=== PATIENT | male | born 1960 | race Two or more races ===

== ENCOUNTER 2017-01-09 11:25 | Inpatient (IN) | payer BC ==
[2017-01-09 11:35] VITALS: BMI 37.6
[2017-01-09] MEDS ORDERED: SODIUM CHLORIDE 500 ML IV STA (11:55)
--- NOTE | 2017-01-09 11:55 | PDOC ---
History of Present Illness <Michael Pineda - Last Filed: 01/09/17 14:26> - General History Source: Patient Exam Limitations: No Limitations - History of Present Illness Initial Comments: 01/09/17 11:55 The patient is a 56-year-old man with a significant past medical history of hypertension, hypercholesterolemia, non-insulin dependent diabetes mellitus, coronary artery disease s/p stent placement and ulcers who was recently admitted in this hospital on September of 2016 for pneumonia, who presents to the emergency department today, for further evaluation of shortness of breath. He states that his symptoms started over the weekend, when he started to experience nasal congestion, a mild intermittent non-productive cough and increasing shortness of breath. He states that prior to his symptoms, he was able to walk a few blocks, however, he is now only able to walk a shorter distance, as he gets short of breath. He denies using extra pillows in order to sleep at night. He denies any changes in his chronic lower extremity swelling. He did not receive the influenza vaccine this season. Patient went to his PMD, this morning, when a flu swab was performed and was positive for the flu. He attributes his symptoms to his sick contact exposure to his , who developed symptoms before him. Upon Er arrival, patient was noted to be 89% on room air and was immediately placed on a non-rebreather. He denies chest pain, headache,dizziness, lightheadedness, fever, chills, back pain. He denies abdominal pain,nausea, vomiting, diarrhea, hematochezia, melena He denies lower extremity pain/swelling and/or recent prolonged immobilization. Allergies: No Known Drug Allergies Past Surgical History: Stent Placement. Lumbar-Sacral Surgery. Right Wrist Arthroscopy. Right Knee Arthroscopy. Left Second toe revision Social History: No tobacco, ETOH and recreational drug use. Primary Care Physician: [facility]. <Sandra Lawson - Last Filed: 01/09/17 14:43> - General Chief Complaint: Shortness of Breath Stated Complaint: SOB Time Seen by Provider: 01/09/17 11:40 Past History - Past Medical History Anemia: No Asthma: No Cancer: No Cardiac Disorders: Yes (stent placement) CVA: No COPD: No CHF: No Dementia: No Diabetes: Yes GI Disorders: Yes (ULCERS) Disorders: No HTN: Yes Hypercholesterolemia: Yes Liver Disease: No Seizures: No Thyroid Disease: No - Surgical History Abdominal Surgery: No Appendectomy: No Cardiac Surgery: Yes (stents) Cholecystectomy: No Lung Surgery: No Neurologic Surgery: Yes (lumbar sacral surgery) Orthopedic Surgery: Yes (r wrist arthroscopy, r knee arthroscopy, L 2nd toe revision) - Psycho/Social/Smoking Cessation Hx Anxiety: No Suicidal Ideation: No Smoking Status: No Smoking History: Former smoker Have you smoked in the past 12 months: No Number of Cigarettes Smoked Daily: 0 If you are a former smoker, when did you quit?: "on and off" for many years Information on smoking cessation initiated: No Hx Alcohol Use: No Drug/Substance Use Hx: No Substance Use Type: None Hx Substance Use Treatment: No <Michael Pineda - Last Filed: 01/09/17 14:26> <Sandra Lawson - Last Filed: 01/09/17 14:43> - Past Medical History Allergies/Adverse Reactions: Allergies Allergy/AdvReac Type Severity Reaction Status Date / Time No Known Allergies Allergy Verified 01/09/17 11:31 Home Medications: Ambulatory Orders Albuterol Sulfate [Proair Respiclick] 90 mcg IH Q4H 01/09/17 Amlodipine Besylate [Norvasc -] 10 mg PO DAILY 01/09/17 Aspirin Coated [Ecotrin -] 81 mg PO DAILY 01/09/17 Atorvastatin Ca [Lipitor] 80 mg PO HS 01/09/17 Azelastine HCl 0 mcg NS BID 01/09/17 Carvedilol [Coreg] 25 mg PO BID 01/09/17 Diclofenac Sodium [Voltaren] 100 gm TP DAILY 01/09/17 Glimepiride [Amaryl] 2 mg PO DAILY 01/09/17 Ketoconazole 2% Cream [Nizoral 2% Cream -] 1 applic TP BID 01/09/17 Linagliptin [Tradjenta] 5 mg PO DAILY 01/09/17 Mupirocin Ointment [Bactroban] 1 applic TP BID 01/09/17 [place]-3S/Dha/Epa/Fish Oil [Fish Oil 1,200 mg Softgel] 1 each PO BID 01/09/17 Oxycodone HCl/Acetaminophen [Percocet 5-325 mg Tablet] 1 tab PO Q6H 01/09/17 Terbinafine HCl [Lamisil] 250 mg PO DAILY 01/09/17 Tramadol HCl [Ultram] 50 mg PO Q6H 01/09/17 Valsartan [Diovan] 320 mg PO DAILY 01/09/17 Review of Systems - Review of Systems Constitutional: Yes: Chills. No: Fever HEENTM: Yes: Nose Congestion Respiratory: Yes: Cough, Shortness of Breath ABD/GI: No: Diarrhea, Vomiting Musculoskeletal: Yes: Muscle Pain Neurological: No: Headache All Other Systems: Reviewed and Negative <Michael Pineda - Last Filed: 01/09/17 14:26> *Physical Exam - Vital Signs Last Vital Signs Temp Pulse Resp BP Pulse Ox 98.1 F 70 18 109/65 98 01/09/17 11:32 01/09/17 11:32 01/09/17 11:32 01/09/17 11:32 01/09/17 11:52 <Michael Pineda - Last Filed: 01/09/17 14:26> - Vital Signs Last Vital Signs Temp Pulse Resp BP Pulse Ox 98.1 F 70 18 109/65 98 01/09/17 11:32 01/09/17 11:32 01/09/17 11:32 01/09/17 11:32 01/09/17 11:52 - Physical Exam Comments: 01/09/17 11:55 GENERAL: The patient is awake, alert, and fully oriented, in no acute distress. HEAD: Normal with no signs of trauma. EYES: Pupils equal, round and reactive to light, extraocular movements intact, sclera anicteric, conjunctiva clear with no pallor. ENT: Ears normal, nasal congestion, oropharynx clear without exudates. Moist mucous membranes. NECK: Normal range of motion, supple without lymphadenopathy, JVD, or masses. LUNGS: Slightly coarse breath sounds at the bases, left worse than right, but overall clear with no wheezes. HEART: Regular rate and rhythm, normal S1 and S2 without murmur or rub. ABDOMEN: Soft/nontender/nondistended. BS wnl. No guarding or rebound. No palpable masses. No hepatosplenomegaly. EXTREMITIES: Normal range of motion. 2+ pitting edema, bilaterally without unilateral calf tenderness. No clubbing or cyanosis. No cords, erythema, or tenderness. NEUROLOGICAL: Cranial nerves II through XII grossly intact. Normal speech, normal gait. PSYCH: Normal mood, normal affect. SKIN: Warm, Dry, normal turgor, no rashes or lesions noted. <Sandra Lawson - Last Filed: 01/09/17 14:43> Heart Score/ECG Review #1 ECG reviewed & interpreted by me at: 12:00 General ECG Interpretation: Sinus Rhythm, Normal Rate (65), Normal Intervals ( qtc 434), No acute ischemic changes (poor baseline V1V2, inf Q waves, TWI I/AVL , V4-V6) Compared to previous ECG there are: No significant change (c/w 09/28/16) <Michael Pineda - Last Filed: 01/09/17 14:26> ED Treatment Course - LABORATORY CBC & Chemistry Diagram: 01/09/17 12:02 01/09/17 12:02 <Michael Pineda - Last Filed: 01/09/17 14:26> - LABORATORY CBC & Chemistry Diagram: 01/09/17 12:02 01/09/17 12:02 - RADIOLOGY Radiograph Interpretation: 01/09/17 13:19 EXAM: RAD/CHEST X-RAY PORTABLE IMPRESSION: A single view reveals a weak inspiration with resultant congestive changes and prominent mediastinum. The atelectasis in the left midlung field has resolved since 09/28/2016. The congestive changes have developed. EXAM: CT/CHEST CT WITHOUT CONTRAST IMPRESSION: Sequential axial images were obtained from the thoracic inlet through the domes of the diaphragm. Evaluation of the lung pino demonstrates no evidence of pulmonary masses, areas of acute consolidation or pleural effusions. Examination of the mediastinum demonstrates small lymph nodes scattered throughout the mediastinal chains. The etiology and significance of this mild adenopathy is uncertain. There is no evidence of evidence of mediastinal masses or fluid collections. The heart is not enlarged. Coronary artery calcification is present. Evaluation of the upper abdomen demonstrates diffuse fatty infiltration of the liver. There is no evidence of acute pathology. There is no evidence of acute bony abnormalities. <Sandra Lawson - Last Filed: 01/09/17 14:43> Medical Decision Making - Medical Decision Making 01/09/17 12:31 A portion of this note was documented by scribe services under my direction. I have reviewed the details of the note, within reason, and agree with the documentation with the following case summary and management plan written by me. 56-year-old male with multiple medical problems and history of pneumonia in September now sent from [facility] after he was found to be influenza positive and hypoxic in the setting of 3 days of URI symptoms and acute on chronic shortness of breath. Afebrile here, O2 sat 88% on room air, improves to 94% on supplemental oxygen. Bibasilar coarse breath sounds, left worse than right 56-year-old male with positive influenza and relative hypoxia on exam, rule out superimposed pneumonia, ? CHF. Labs, EKG, chest x-ray Tamiflu Supplemental oxygen, nebulizers Admission 01/09/17 14:09 No leukocytosis, positive acute renal insufficiency with creatinine 1.9, baseline 1.3. Troponin negative, BNP 470, chest x-ray with poor inspiration and possible atelectasis, will proceed with CT chest without contrast. Will proceed with admission given the hypoxia in the setting of influenza. Dr. Garnett, wagon drill operator for service, called. 01/09/17 14:27 Accepted for inpatient med/surg by Dr. Garnett. CT chest pending. <Michael Pineda - Last Filed: 01/09/17 14:26> - Medical Decision Making 01/09/17 14:[address] Екатерина Garnett. Accepts Case. <Sandra Lawson - Last Filed: 01/09/17 14:43> *DC/Admit/Observation/Transfer - Discharge Dispostion Admit: Yes <Michael Pineda - Last Filed: 01/09/17 14:26> - Attestations Scribe Attestion: 01/09/17 11:56 Documentation prepared by Sandra Lawson, acting as medical review coordinator for Michael Pineda MD. <Sandra Lawson - Last Filed: 01/09/17 14:43> Diagnosis at time of Disposition: Influenza, Hypoxia - Discharge Dispostion Condition at time of disposition: Fair - Referrals Referrals: Geoff Whipple [Primary Care Provider] -
[2017-01-09] MEDS ORDERED: OSELTAMIVIR PHOSPHATE 75 MG CAPSULE PO ONE (12:05)
[2017-01-09] MEDS ORDERED: OSELTAMIVIR PHOSPHATE 75 MG CAPSULE ONE (12:15)
[2017-01-09 12:22] LABS: BASOPHIL 0.3 % (0-2.0); EOSINOPHIL 4.7 % (0-4.5); MCH 27.2 pg (25.7-33.7); MCHC 32.1 g/dl (32.0-35.9); MEAN CELL VOLUME 84.9 fl (80-96); MEAN PLT VOLUME 8.6 fl (7.5-11.1); NEUTROPHILS 70.4 % (42.8-82.8); PLATELET COUNT 121 K/MM3 (134-434); RDW 15.3 % (11.9-15.9); WHITE BLOOD COUNT 9.6 K/mm3 (4.0-10.0)
[2017-01-09] MEDS ORDERED: ALBUTEROL SO4 2.5/IPRATROPIUM 0.5 INH SOL 3 ML VIAL.NEB. NEB ONE ×2 (12:33→12:49)
[2017-01-09 12:35] LABS: INR 1.08 (0.82-1.09); PROTHROMBIN TIME (PATIENT) 11.9 SEC (9.98-11.88)
[2017-01-09 12:38] LABS: ALBUMIN 3.4 g/dl (3.4-5.0); ANION GAP 8 (8-16); BILIRUBIN,TOTAL 0.4 mg/dL (0.2-1.0); CALCIUM 8.8 mg/dL (8.5-10.1); CO2 32 mmol/L (21-32); CREATININE 1.9 mg/dL (0.7-1.3); GLUCOSE,RANDOM 160 mg/dL (74-106); MAGNESIUM 2.1 mg/dL (1.8-2.4); SGOT/AST 21 U/L (15-37); SGPT/ALT 41 U/L (12-78); TOT PROT 7.7 g/dl (6.4-8.2)
[2017-01-09 12:42] LABS: ALK PHOS 117 U/L (45-117); TROPONIN I < 0.02 ng/ml (0.00-0.05)
[2017-01-09] MEDS ORDERED: SODIUM CHLORIDE 1,000 ML IV ONE (14:05)
[2017-01-09] MEDS ORDERED: OXYCODONE/APAP 5/325MG COMBO TABLET PO PRN (20:20)
[2017-01-09] MEDS ORDERED: oxyCODONE HCL 5 MG TABLET PO PRN (20:36)
[2017-01-09] MEDS ORDERED: ACETAMINOPHEN 325 MG TABLET (FP) PO PRN (20:37)
[2017-01-09] MEDS: CARVEDILOL 25 MG TABLET (FP) PO SCH (21:34)
[2017-01-09] MEDS: ATORVASTATIN CA 80 MG TABLET (FP) PO SCH (21:34)
[2017-01-09] MEDS: OSELTAMIVIR PHOSPHATE 75 MG CAPSULE PO SCH (21:35)
[2017-01-09] MEDS: INSULIN SLIDING SCALE (NOVOLOG) 1 VIAL SQ SCH (21:44)
--- NOTE | 2017-01-09 22:58 | EKG ---
Test Reason : Blood Pressure : / mmHG Vent. Rate : 065 BPM Atrial Rate : 065 BPM P-R Int : 148 ms QRS Dur : 102 ms QT Int : 418 ms P-R-T Axes : -20 -63 127 degrees QTc Int : 434 ms POOR DATA QUALITY, INTERPRETATION MAY BE ADVERSELY AFFECTED SINUS RHYTHM LEFT ANTERIOR FASCICULAR BLOCK ABNORMAL ECG Confirmed by ANDREAS MONTALVO MD ([id number]) on 01/09/2017 10:58:01 PM Referred By: Confirmed By:ANDREAS MONTALVO MD
[2017-01-10] MEDS: ALBUTEROL SO4 2.5/IPRATROPIUM 0.5 INH SOL 3 ML VIAL.NEB. NEB SCH ×5 (00:09→23:07)
[2017-01-10] MEDS ORDERED: PT OWN MED DRAWER 7, Y5N ONE (05:48)
[2017-01-10] MEDS: INSULIN SLIDING SCALE (NOVOLOG) 1 VIAL SQ SCH ×4 (06:44→22:10)
[2017-01-10] MEDS: sitaGLIPtin PHOSPHATE 100 MG TABLET (FP) PO SCH (06:45)
[2017-01-10] MEDS: GLIMEPIRIDE 2 MG TABLET (FP) PO SCH (06:45)
[2017-01-10] MEDS ORDERED: PATIENT'S OWN MEDICATION (NON-FORMULARY) (Linagliptin [Tradjenta] 5 MG) PO SCH (10:00)
[2017-01-10] MEDS ORDERED: PATIENT'S OWN MEDICATION (NON-FORMULARY) (Terbinafine Hcl [Lamisil] 250 MG) PO SCH (10:00)
[2017-01-10] MEDS: VALSARTAN 160 MG TABLET (UD) PO SCH (10:44)
[2017-01-10] MEDS: amLODIPine BESYLATE 10 MG TABLET (FP) PO SCH (10:45)
[2017-01-10] MEDS: CARVEDILOL 25 MG TABLET (FP) PO SCH ×2 (10:45→22:09)
[2017-01-10] MEDS: ENOXAPARIN NA (PORCINE) 40 MG/0.4 ML DISP.SYRIN SQ SCH (10:45)
[2017-01-10] MEDS: ASPIRIN COATED 81 MG TABLET.EC PO SCH (10:45)
[2017-01-10] MEDS: OSELTAMIVIR PHOSPHATE 75 MG CAPSULE PO SCH ×2 (10:45→22:09)
--- NOTE | 2017-01-10 11:31 | CON.PULM ---
Consult Consult Specialty:: PULMONARY Referred by:: PMD Reason for Consultation:: INFLU/SOB - History of Present Illness History of Present Illness: The patient is a 56-year-old man with a significant past medical history of hypertension, hypercholesterolemia, non-insulin dependent diabetes mellitus, coronary artery disease s/p stent placement and ulcers who was recently admitted in this hospital on September of 2016 for pneumonia ( official reading of cxr was linear atelectasis), who presents to the emergency department for further evaluation of shortness of breath. He states that his symptoms started over the weekend, when he started to experience nasal congestion, a mild intermittent non-productive cough and increasing shortness of breath. He states that prior to his symptoms, he was able to walk a few blocks, however, he is now only able to walk a shorter distance, as he gets short of breath. He denies using extra pillows in order to sleep at night. He denies any changes in his chronic lower extremity swelling. He did not receive the influenza vaccine this season. Patient went to his PMD, this morning, when a flu swab was performed and was positive for the flu. He attributes his symptoms to his sick contact exposure to his , who developed symptoms before him. Upon Er arrival, patient was noted to be 89% on room air and was immediately placed on a non- rebreather. He denies chest pain, headache,dizziness, lightheadedness, fever, chills, back pain. He denies abdominal pain,nausea, vomiting, diarrhea, hematochezia, melena He denies lower extremity pain/swelling and/or recent prolonged immobilization. He has had a recent (3 weeks ago ) arthroscopic surg of shoulder at [facility]. 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 Cardio/Vascular: Yes: CAD (s/p PCI of proximal RCA in 09/2005 with Palmaz TONYA stent at [facility]), Deep Vein Thrombosis (left leg), HTN, Hyperlipdemia Pulmonary: Yes: Sleep Apnea Gastrointestinal: Yes: GI Bleed (due to esophageal ulcers per 12/02/15 EGD) Renal/: Yes: Renal Inusuff, Hematuria Infectious Disease: Yes: Tuberculosis Psych: Yes: Addictions Musculoskeletal: Yes: Chronic low back pain Rheumatology: Yes: Other (arthritis right shoulder) Endocrine: Yes: Diabetes Mellitus Additional Medical History: Vertebral osteomyelitis treated with IV antibiotics - Past Surgical History Past Surgical History: Yes: None, Arthrosocopy (SHOULDER), Colonoscopy, Laminectomy (partial laminectomey right L3-4, left 4-5 on 12/08/15), Upper Endoscopy - Alcohol/Substance Use Hx Alcohol Use: No History of Substance Use: reports: Cocaine, Marijuana Date of Last Use: 11/14/15 (uses "occasionally") - Smoking History Smoking history: Former smoker Have you smoked in the past 12 months: No Aproximately how many cigarettes per day: 0 If you are a former smoker, when did you quit?: "on and off" for many years - Social History Usual Living Arrangement: [facility] ADL: Support Services Occupation: [employer] History of Recent Travel: No Home Medications - Allergies Allergies/Adverse Reactions: Allergies Allergy/AdvReac Type Severity Reaction Status Date / Time No Known Allergies Allergy Verified 01/09/17 11:31 - Home Medications Home Medications: Ambulatory Orders Albuterol Sulfate [Proair Respiclick] 90 mcg IH Q4H 01/09/17 Amlodipine Besylate [Norvasc -] 10 mg PO DAILY 01/09/17 Aspirin Coated [Ecotrin -] 81 mg PO DAILY 01/09/17 Atorvastatin Ca [Lipitor] 80 mg PO HS 01/09/17 Azelastine HCl 0 mcg NS BID 01/09/17 Carvedilol [Coreg] 25 mg PO BID 01/09/17 Diclofenac Sodium [Voltaren] 100 gm TP DAILY 01/09/17 Glimepiride [Amaryl] 2 mg PO DAILY 01/09/17 Ketoconazole 2% Cream [Nizoral 2% Cream -] 1 applic TP BID 01/09/17 Linagliptin [Tradjenta] 5 mg PO DAILY 01/09/17 Mupirocin Ointment [Bactroban] 1 applic TP BID 01/09/17 [place]-3S/Dha/Epa/Fish Oil [Fish Oil 1,200 mg Softgel] 1 each PO BID 01/09/17 Oxycodone HCl/Acetaminophen [Percocet 5-325 mg Tablet] 1 tab PO Q6H 01/09/17 Terbinafine HCl [Lamisil] 250 mg PO DAILY 01/09/17 Tramadol HCl [Ultram] 50 mg PO Q6H 01/09/17 Valsartan [Diovan] 320 mg PO DAILY 01/09/17 Family Disease History - Family Disease History Family Disease History: Diabetes: Father (asthma), Mother Review of Systems - Review of Systems Constitutional: denies: Fever Eyes: denies: Blind Spots HENT: denies: Difficult Swallowing Neck: denies: Decreased ROM Cardiovascular: denies: Chest Pain Respiratory: reports: Cough, Snoring, SOB on Exertion, Wheezing. denies: Hemoptysis Gastrointestinal: denies: Abdominal Pain Genitourinary: denies: Burning Breasts: reports: No Symptoms Reported Musculoskeletal: reports: No Symptoms Integumentary: reports: No Symptoms Neurological: reports: No Symptoms Endocrine: reports: No Symptoms Hematology/Lymphatic: reports: No Symptoms Physical Exam Vital Sings: Vital Signs Temperature 97.9 F 01/10/17 10:00 Pulse Rate 60 01/10/17 10:00 Respiratory Rate 18 01/10/17 10:00 Blood Pressure 127/67 01/10/17 10:00 O2 Sat by Pulse Oximetry (%) 97 01/09/17 15:14 Constitutional: Yes: Calm Eyes: Yes: EOM Intact HENT: Yes: Normocephalic Neck: Yes: Trachea Midline Cardiovascular: Yes: Regular Rate and Rhythm Respiratory: Yes: Diminished Gastrointestinal: Yes: Soft, Abdomen, Obese Edema: LLE: 1+, RLE: 1+ Integumentary: Yes: WNL Neurological: Yes: WNL Psychiatric: Yes: WNL Labs: ALL REVIEWED Imaging - Results Chest X-ray: Image Reviewed Cat Scan: Image Reviewed Problem List - Problems (1) Hypoxia Code(s): R09.02 - HYPOXEMIA (2) Influenza Code(s): J11.1 - FLU DUE TO UNIDENTIFIED INFLUENZA VIRUS W OTH RESP MANIFEST (3) CAD S/P percutaneous coronary angioplasty Code(s): I25.10 - ATHSCL HEART DISEASE OF [place] CORONARY ARTERY W/O ANG PCTRS Z98.61 - CORONARY ANGIOPLASTY STATUS (4) CAP (community acquired pneumonia) Code(s): J18.9 - PNEUMONIA, UNSPECIFIED ORGANISM Assessment/Plan ISOLATION TAMIFLU SINUS FILMS MAY NEED CONCOMITANT ANTIBIOTIC TREATMENT FOR SINUSITIS IF XRAYS CONFIRM WILL FOLLOW Loretta CARDONA MD
--- NOTE | 2017-01-10 12:11 | PN ---
Progress Note, Physician History of Present Illness: This was entered in error - Current Medication List Current Medications: Active Medications Acetaminophen (Tylenol -) 325 mg PO Q6H PRN PRN Reason: FEVER OR PAIN Last Admin: 01/09/17 21:35 Dose: 325 mg Albuterol/Ipratropium (Duoneb -) 1 amp NEB Q6HPO [facility] Last Admin: 01/10/17 11:49 Dose: 1 amp Amlodipine Besylate (Norvasc -) 10 mg PO DAILY [facility] Last Admin: 01/10/17 10:45 Dose: 10 mg Aspirin (Ecotrin -) 81 mg PO DAILY [facility] Last Admin: 01/10/17 10:45 Dose: 81 mg Atorvastatin Calcium (Lipitor -) 80 mg PO HS [facility] Last Admin: 01/09/17 21:34 Dose: 80 mg Carvedilol (Coreg -) 25 mg PO BID [facility] Last Admin: 01/10/17 10:45 Dose: 25 mg Enoxaparin Sodium (Lovenox -) 40 mg SQ DAILY [facility] Last Admin: 01/10/17 10:45 Dose: 40 mg Glimepiride (Amaryl -) 2 mg PO ACBK [facility] Last Admin: 01/10/17 06:45 Dose: 2 mg Insulin Aspart (Novolog Vial Sliding Scale -) 1 vial SQ ACHS [facility] PRN Reason: Protocol Last Admin: 01/10/17 12:01 Dose: Not Given Non-Formulary Medication (Terbinafine Hcl [Lamisil]) 250 mg PO DAILY [facility] Oseltamivir Phosphate (Tamiflu -) 75 mg PO BID [facility] Stop: 01/14/17 21:59 Last Admin: 01/10/17 10:45 Dose: 75 mg Oxycodone HCl (Roxicodone -) 5 mg PO Q6H PRN Last Admin: 01/10/17 00:05 Dose: 5 mg Sitagliptin Phosphate (Januvia -) 100 mg PO DAILY@0700 [facility] Last Admin: 01/10/17 06:45 Dose: 100 mg Valsartan (Diovan -) 320 mg PO DAILY [facility] Last Admin: 01/10/17 10:44 Dose: 320 mg - Objective Vital Signs: Vital Signs Temperature 97.9 F 01/10/17 10:00 Pulse Rate 60 01/10/17 10:00 Respiratory Rate 18 01/10/17 10:00 Blood Pressure 127/67 01/10/17 10:00 O2 Sat by Pulse Oximetry (%) 97 01/09/17 15:14 Labs: INR, PTT INR 1.08 (0.82-1.09) 01/09/17 12:02
--- NOTE | 2017-01-10 13:59 | HP ---
Admitting History and Physical - Admission Chief Complaint: Hypoxia History of Present Illness: Pt is a 56 y/o male w/ multiple medical problems including HTN, HLD, CAD(stent placement), diabetes and pneumonia in 09/16. For the past 3-4 days he had been having dry nonproductive cough w/ nasal/sinusis congestion and generalized arthralgias. Pt went to see his PMD at [facility] and was dx'ed w/ influenza. He was found to be hypoxic and sent to the ER where upon arrival his O2 sat was 89% . Pt denies any fever/chills. Although he did state that his has been having intermittent dyspneas for awhile now but denies any chest pain or palpitations. Pt quit smoking few yrs ago. In the Er pt had ct scan chest wc did not show any acute pathology. 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 Cardiovascular: Yes: CAD (s/p PCI of proximal RCA in 09/2005 with Palmaz TONYA stent at [facility]), Deep Vein Thrombosis (left leg), HTN, Hyperlipdemia Pulmonary: Yes: Sleep Apnea Gastrointestinal: Yes: GI Bleed (due to esophageal ulcers per 12/02/15 EGD) Renal/: Yes: Renal Inusuff, Hematuria Heme/Onc: Yes: Bleeding Disorder (hematuria) Infectious Disease: Yes: Tuberculosis Psych: Yes: Addictions Musculoskeletal: Yes: Chronic low back pain Rheumatology: Yes: Other (arthritis right shoulder) Endocrine: Yes: Diabetes Mellitus - Past Surgical History Past Surgical History: Yes: None, Arthrosocopy (SHOULDER), Colonoscopy, Laminectomy (partial laminectomey right L3-4, left 4-5 on 12/08/15), Upper Endoscopy - Smoking History Smoking history: Former smoker Have you smoked in the past 12 months: No Aproximately how many cigarettes per day: 0 If you are a former smoker, when did you quit?: "on and off" for many years - Alcohol/Substance Use Hx Alcohol Use: No History of Substance Use: reports: Cocaine, Marijuana Date of Last Use: 11/14/15 (uses "occasionally") - Social History ADL: Support Services Occupation: [employer] History of Recent Travel: No Home Medications - Allergies Allergies/Adverse Reactions: Allergies Allergy/AdvReac Type Severity Reaction Status Date / Time No Known Allergies Allergy Verified 01/09/17 11:31 - Home Medications Home Medications: Ambulatory Orders Albuterol Sulfate [Proair Respiclick] 90 mcg IH Q4H 01/09/17 Amlodipine Besylate [Norvasc -] 10 mg PO DAILY 01/09/17 Aspirin Coated [Ecotrin -] 81 mg PO DAILY 01/09/17 Atorvastatin Ca [Lipitor] 80 mg PO HS 01/09/17 Azelastine HCl 0 mcg NS BID 01/09/17 Carvedilol [Coreg] 25 mg PO BID 01/09/17 Diclofenac Sodium [Voltaren] 100 gm TP DAILY 01/09/17 Glimepiride [Amaryl] 2 mg PO DAILY 01/09/17 Ketoconazole 2% Cream [Nizoral 2% Cream -] 1 applic TP BID 01/09/17 Linagliptin [Tradjenta] 5 mg PO DAILY 01/09/17 Mupirocin Ointment [Bactroban] 1 applic TP BID 01/09/17 [place]-3S/Dha/Epa/Fish Oil [Fish Oil 1,200 mg Softgel] 1 each PO BID 01/09/17 Oxycodone HCl/Acetaminophen [Percocet 5-325 mg Tablet] 1 tab PO Q6H 01/09/17 Terbinafine HCl [Lamisil] 250 mg PO DAILY 01/09/17 Tramadol HCl [Ultram] 50 mg PO Q6H 01/09/17 Valsartan [Diovan] 320 mg PO DAILY 01/09/17 Family Disease History - Family Disease History Family Disease History: Diabetes: Father (asthma), Mother Physical Examination Vital Signs: Vital Signs Temperature 97.9 F 01/10/17 10:00 Pulse Rate 60 01/10/17 10:00 Respiratory Rate 18 01/10/17 10:00 Blood Pressure 127/67 01/10/17 10:00 O2 Sat by Pulse Oximetry (%) 93 L 01/10/17 09:00
[2017-01-10] MEDS ORDERED: ZOLPIDEM TARTRATE 5 MG TABLET PO ONE (22:00)
[2017-01-10] MEDS: ATORVASTATIN CA 80 MG TABLET (FP) PO SCH (22:09)
--- NOTE | 2017-01-11 00:05 | HOSP ---
Physical Examination Vital Signs: Vital Signs Temperature 97.9 F 01/10/17 16:30 Pulse Rate 63 01/10/17 16:30 Respiratory Rate 20 01/10/17 16:30 Blood Pressure 145/84 01/10/17 16:30 O2 Sat by Pulse Oximetry (%) 93 L 01/10/17 09:00 Hospitalist Encounter Assessment: Was paged by the nurse to inform me that patient had mental status change after he took 10mg of Zolpidem. Nurse reported that this is Dr. Abbott private patient , they tried calling Dr. Garnett to get medication for insomnia for the patient, she was unable to be reached. Dr. Nicolas George ordered Zolpidem 10mg stat. As per the nurse, after an hour and half, patient started becoming confused, was disoriented, told the nurse he saw broken pipes on the floor but there were no pipes on the floors, patient was restless and had tremors in the extremities. Patient seen and examined at bed side. On further questioning, patient mentioned he came to the hospital because of stuffy nose, was flu positive and is being treated for flu. Patient said he takes codeine for sleep, without codeine he gets very restless. Patient admits using illicit drugs like marijuana, cocaine, last took 3months ago. Now, seems to be anxious, wants to sleep but is not able to sleep. Denies chest pain, cough, sob, palpitation, abdominal pain, nausea or vomiting. Bowel/Bladder habit normal. Patient now is hallucinating, taking off his clothes, talking to himself. Patient took shower this evening, now is insisting to take a shower @ 12:30am BP- 138/86; P-74bpm, RR-24, Spo2-93% at RA General: Obese patient, lying in bed, anxious, oriented x 3. HEENT: Conjunctiva red, watery eyes, EOM intact, no pallor or icterus. Chest: B/L lungs clear, no added sounds CVS: regular rate, rhythm, S1, S2, no murmur. Abd: Soft, non tender, no organomegaly. Neuro: CN 2-12 grossly intact, restless, tremors, anxious, no tremors in extremities. A/P R/o drug induced confusion Nasal oxygen at 2L. Ordered Urine toxicology stat- Ordered CBC, CMP Please call once report gets back. SECOND ENCOUNTER CBC-normal, CMP-mild hypokalemia with acute renal failure. AMS/Confusion less likely due to electrolyte imbalance AMS/Confusion not due to illicit drug use-Urine toxicology negative Repeat vitals: BP- 150/77mmHg, P-98bpm, RR-22, Spo2-89% at Room air (since patient keeps on taking off the nasal canula) Ordered stat ABG to rule out hypoxia causing confusion. Spoke with the patient. He said he spoke with Dr. Garnett 3times asking for sleeping pills but never got it. Checked patients medication list. He mentioned that oxycodone helps him to remain calm. Will hold narcotics for now as he could have had confusion due to Zolpidem. Visit type - Emergency Visit Emergency Visit: Yes ED Registration Date: 01/09/17 Care time: The patient presented to the Emergency Department on the above date and was hospitalized for further evaluation of their emergent condition. - New Patient This patient is new to me today: Yes Date on this admission: 01/11/17 - Critical Care Critical Care patient: No
[2017-01-11 00:56] LABS: BASOPHIL 0.9 % (0-2.0); EOSINOPHIL 7.7 % (0-4.5); MCH 27.5 pg (25.7-33.7); MCHC 32.7 g/dl (32.0-35.9); MEAN CELL VOLUME 83.9 fl (80-96); MEAN PLT VOLUME 8.7 fl (7.5-11.1); NEUTROPHILS 52.4 % (42.8-82.8); PLATELET COUNT 128 K/MM3 (134-434); RDW 14.9 % (11.9-15.9); WHITE BLOOD COUNT 9.5 K/mm3 (4.0-10.0)
[2017-01-11 01:21] LABS: ALBUMIN 3.2 g/dl (3.4-5.0); CALCIUM 8.5 mg/dL (8.5-10.1); CREATININE 1.4 mg/dL (0.7-1.3)
[2017-01-11 01:23] LABS: URINE MARIJUANA THC NEGATIVE ng/ml (CUTOFF=50)
[2017-01-11 01:27] LABS: BILIRUBIN,TOTAL 0.3 mg/dL (0.2-1.0)
[2017-01-11 02:29] LABS: ARTERIAL BLD GAS O2 SATURATION 90.3 % (90-98.9); ARTERIAL BLOOD GAS BASE EXCESS 3.1 meq/l (-2-2); ARTERIAL BLOOD GAS HCO3 28.9 meq/L (22-26); ARTERIAL BLOOD GAS PO2 61.7 mmHg (80-100); ARTERIAL BLOOD GAS pH 7.37 (7.35-7.45)
[2017-01-11 02:30] LABS: ALLENS TEST POSITIVE; ART PUNCT SITE RIGHT RADIAL; LPM/O2% 4L; PT. ON O2? YES; TYPE OF O2 NASAL
[2017-01-11] MEDS: ALBUTEROL SO4 2.5/IPRATROPIUM 0.5 INH SOL 3 ML VIAL.NEB. NEB SCH ×2 (06:06→11:10)
[2017-01-11] MEDS: sitaGLIPtin PHOSPHATE 100 MG TABLET (FP) PO SCH (06:25)
[2017-01-11] MEDS: GLIMEPIRIDE 2 MG TABLET (FP) PO SCH (06:25)
[2017-01-11] MEDS: INSULIN SLIDING SCALE (NOVOLOG) 1 VIAL SQ SCH ×3 (06:29→16:43)
[2017-01-11 06:51] VITALS: TEMP 97.5
[2017-01-11 08:46] LABS: BASOPHIL 0.6 % (0-2.0); EOSINOPHIL 5.6 % (0-4.5); MCHC 32.4 g/dl (32.0-35.9); MEAN CELL VOLUME 83.4 fl (80-96); MEAN PLT VOLUME 8.8 fl (7.5-11.1); NEUTROPHILS 62.2 % (42.8-82.8); PLATELET COUNT 117 K/MM3 (134-434); RDW 14.8 % (11.9-15.9); WHITE BLOOD COUNT 9.1 K/mm3 (4.0-10.0)
[2017-01-11 09:01] VITALS: BP 141/94
[2017-01-11] MEDS: AMOX TR/POT CLAV 875MG/125MG TABLETS (FP) PO SCH ×2 (09:05→17:02)
[2017-01-11] MEDS: ENOXAPARIN NA (PORCINE) 40 MG/0.4 ML DISP.SYRIN SQ SCH (09:05)
[2017-01-11] MEDS: ASPIRIN COATED 81 MG TABLET.EC PO SCH (09:06)
[2017-01-11] MEDS: CARVEDILOL 25 MG TABLET (FP) PO SCH (09:06)
[2017-01-11] MEDS: VALSARTAN 160 MG TABLET (UD) PO SCH (09:06)
[2017-01-11] MEDS: OSELTAMIVIR PHOSPHATE 75 MG CAPSULE PO SCH (09:06)
[2017-01-11] MEDS: amLODIPine BESYLATE 10 MG TABLET (FP) PO SCH (09:06)
[2017-01-11 09:23] LABS: ALBUMIN 3.4 g/dl (3.4-5.0); CALCIUM 8.8 mg/dL (8.5-10.1)
[2017-01-11 09:28] LABS: BILIRUBIN,TOTAL 0.4 mg/dL (0.2-1.0); CREATININE 1.3 mg/dL (0.7-1.3); TOT PROT 7.2 g/dl (6.4-8.2)
[2017-01-11 11:57] VITALS: PULSE 60
--- NOTE | 2017-01-11 16:14 | PN ---
Progress Note, Physician History of Present Illness: PULMONARY ALERT,NAD,-SOB,-CP. O2 SAT 95% AT REST ON RA, 90% POST EXERCISE ON RA - Current Medication List Current Medications: Active Medications Acetaminophen (Tylenol -) 325 mg PO Q6H PRN PRN Reason: FEVER OR PAIN Last Admin: 01/09/17 21:35 Dose: 325 mg Albuterol/Ipratropium (Duoneb -) 1 amp NEB Q6HPO [facility] Last Admin: 01/11/17 11:10 Dose: 1 amp Amlodipine Besylate (Norvasc -) 10 mg PO DAILY [facility] Last Admin: 01/11/17 09:06 Dose: 10 mg Amoxicillin/Clavulanate Potassium (Augmentin - 875mg Tablet) 1 tab PO BID@0800, 1730 [facility] Last Admin: 01/11/17 09:05 Dose: 1 tab Aspirin (Ecotrin -) 81 mg PO DAILY [facility] Last Admin: 01/11/17 09:06 Dose: 81 mg Atorvastatin Calcium (Lipitor -) 80 mg PO HS [facility] Last Admin: 01/10/17 22:09 Dose: 80 mg Carvedilol (Coreg -) 25 mg PO BID [facility] Last Admin: 01/11/17 09:06 Dose: 25 mg Enoxaparin Sodium (Lovenox -) 40 mg SQ DAILY [facility] Last Admin: 01/11/17 09:05 Dose: 40 mg Glimepiride (Amaryl -) 2 mg PO ACBK [facility] Last Admin: 01/11/17 06:25 Dose: 2 mg Insulin Aspart (Novolog Vial Sliding Scale -) 1 vial SQ ACHS [facility] PRN Reason: Protocol Last Admin: 01/11/17 12:04 Dose: Not Given Non-Formulary Medication (Terbinafine Hcl [Lamisil]) 250 mg PO DAILY [facility] Oseltamivir Phosphate (Tamiflu -) 75 mg PO BID [facility] Stop: 01/14/17 21:59 Last Admin: 01/11/17 09:06 Dose: 75 mg Oxycodone HCl (Roxicodone -) 5 mg PO Q6H PRN Last Admin: 01/10/17 00:05 Dose: 5 mg Sitagliptin Phosphate (Januvia -) 100 mg PO DAILY@0700 [facility] Last Admin: 01/11/17 06:25 Dose: 100 mg Valsartan (Diovan -) 320 mg PO DAILY [facility] Last Admin: 01/11/17 09:06 Dose: 320 mg - Objective Vital Signs: Vital Signs Temperature 97.5 F L 01/11/17 09:00 Pulse Rate 60 01/11/17 11:10 Respiratory Rate 22 01/11/17 09:00 Blood Pressure 141/94 01/11/17 09:00 O2 Sat by Pulse Oximetry (%) 97 01/11/17 11:10 Constitutional: Yes: Well Nourished, Calm Eyes: Yes: WNL HENT: Yes: WNL Neck: Yes: WNL Cardiovascular: Yes: Regular Rate and Rhythm, S1, S2 Respiratory: Yes: CTA Bilaterally Gastrointestinal: Yes: WNL Extremities: Yes: WNL Edema: Yes Labs: CBC, BMP 01/11/17 07:00 01/11/17 07:00 INR, PTT INR 1.08 (0.82-1.09) 01/09/17 12:02 - ....Imaging Cat Scan: Report Reviewed, Image Reviewed (MILD MEDIASTINAL ADENOPATHY) Assessment/Plan Problem List - Problems (1) Hypoxia IMPROVED Code(s): R09.02 - HYPOXEMIA (2) Influenza Code(s): J11.1 - FLU DUE TO UNIDENTIFIED INFLUENZA VIRUS W OTH RESP MANIFEST (3) CAD S/P percutaneous coronary angioplasty Code(s): I25.10 - ATHSCL HEART DISEASE OF [place] CORONARY ARTERY W/O ANG PCTRS Z98.61 - CORONARY ANGIOPLASTY STATUS (4) CAP (community acquired pneumonia) Code(s): J18.9 - PNEUMONIA, UNSPECIFIED ORGANISM Assessment/Plan [facility]AM[facility]LU O2 SLEEP STUDIES OUTPATIENT DR MALONE
== END 2017-01-11 17:12 | disposition home or self-care (01) | DRG 153 ==
LOC: JER 11:25 → JERBED 14:27 → J8W 16:15
PROVIDERS: ADMIT Internal Medicine; ATTEND Internal Medicine
DX: J11.1 Influenza due to unidentified influenza virus with other respiratory manifestations (principal); N17.9 Acute kidney failure, unspecified; F14.20 Cocaine dependence, uncomplicated; I25.10 Atherosclerotic heart disease of native coronary artery without angina pectoris; E11.9 Type 2 diabetes mellitus without complications; E78.00 Pure hypercholesterolemia, unspecified; I10 Essential (primary) hypertension; G47.30 Sleep apnea, unspecified; M54.5 Low back pain; R09.02 Hypoxemia; E66.8 Other obesity; Z68.37 Body mass index [BMI] 37.0-37.9, adult; Z71.3 Dietary counseling and surveillance; E87.8 Other disorders of electrolyte and fluid balance, not elsewhere classified; J18.9 Pneumonia, unspecified organism; Z95.5 Presence of coronary angioplasty implant and graft; Z87.891 Personal history of nicotine dependence
CPT/HCPCS: 36415; 36600; 70220-TC; 71010-TC; 71250-TC; 80053; 80307; 82550; 82803; 83735; 83880; 84484; 85025; 85610; 86710; 87254; 87804; 93005; 93010; 93306-TC; 94640; 99285-25

== ENCOUNTER 2019-08-03 20:29 | Emergency (ER) | payer BC ==
--- NOTE | 2019-08-03 20:38 | PDOC ---
History of Present Illness - General Stated Complaint: WOUND INFECTION Time Seen by Provider: 08/03/19 20:38 Past History - Past Medical History Allergies/Adverse Reactions: Allergies Allergy/AdvReac Type Severity Reaction Status Date / Time No Known Allergies Allergy Verified 08/03/19 21:36 Home Medications: Ambulatory Orders Aspirin [Aspirin EC] 81 mg PO DAILY 06/08/18 Atorvastatin Ca [Lipitor] 80 mg PO HS 06/08/18 Carvedilol [Coreg -] 25 mg PO BID 06/08/18 Glimepiride 2 mg PO DAILY 06/08/18 Liraglutide [Victoza 3-Ivan] 1.2 mg SQ DAILY 06/08/18 [place]-3 Fatty Acids [[place]-3] 350 mg PO DAILY 06/08/18 Oxycodone HCl 5 mg PO Q6H PRN 06/08/18 Bacitracin - [Bacitracin Topical Ointment -] 1 applic TP DAILY #1 tube 06/11/18 Clindamycin HCl 300 mg PO TID #15 capsule 06/11/18 Lactobacillus Acidophilus [Bacid -] 1 tab PO DAILY #30 tab 06/11/18 Anemia: No Asthma: No Cancer: No Cardiac Disorders: Yes (stent placement) CVA: No COPD: No CHF: No Dementia: No Diabetes: Yes GI Disorders: Yes (ULCERS) Disorders: No HTN: Yes Hypercholesterolemia: Yes Liver Disease: No Seizures: No Thyroid Disease: No - Surgical History Abdominal Surgery: No Appendectomy: No Cardiac Surgery: Yes (stents) Cholecystectomy: No Lung Surgery: No Neurologic Surgery: Yes (lumbar sacral surgery) Orthopedic Surgery: Yes (r wrist arthroscopy, r knee arthroscopy, L 2nd toe revision) - Suicide/Smoking/Psychosocial Hx Smoking Status: No Smoking History: Never smoked Have you smoked in the past 12 months: No Number of Cigarettes Smoked Daily: 0 If you are a former smoker, when did you quit?: "on and off" for many years Hx Alcohol Use: No Drug/Substance Use Hx: No Substance Use Type: None Hx Substance Use Treatment: No ED Treatment Course - LABORATORY CBC & Chemistry Diagram: 08/03/19 21:29 Medical Decision Making - Medical Decision Making 58 with PMH of DM, HTN, TN, ?psoriasis presenting with bleeding wound. Starting around 8pm, his left leg was itchy. He excoriated the area which bled immediately and spurted blood. His applied pressure to the area. Patient is on 81mg aspirin but no other anticoagulation. Has been taking a ten-day regimen of antibiotics (unknown what kind or what dose) given by his PCP for suspicion of cellulitis; finished the course yesterday. Redness in his right leg has not expanded in size. Denies other bleeding or discharge from his legs. Also reporting dyspnea on exertion for which he has an appointment to see a steam box operator. Chronic leg swelling and erythema is at its baseline. Last tetanus shot was in 2013. Reports dyspnea on exertion for which he has been evaluated by a steam box operator and given an inhaler; has an appointment to see cardiology tomorrow. No fevers, chills, chest pain, or abdominal pain. PCP: Dr. Teran ROS: Constitutional: no fever, no chills HEENT: no throat pain, no dysphagia Cardiovascular: no chest pain, no palpitations Respiratory: no cough, +dyspnea on exertion Gastrointestinal: no abdominal pain, no nausea Genitourinary: no dysuria, no hematuria Musculoskeletal: no myalgia, no arthralgia Skin: +wound, +erythema Neurologic: no headache, no weakness PE: General: Awake, alert, and fully oriented, in no acute distress Head: No signs of trauma Eyes: EOMI, sclera anicteric ENT: Moist mucus membranes Neck: Normal ROM, supple Lungs: Lungs clear, Normal breath sounds Cardio: Regular rhythm, S1 and S2 present Abdomen: Soft, nontender Extremities: Normal range of motion, Distal pulses present SKIN: Otherwise warm, Dry, normal turgor Extensive area of erythema and dermatitis in BLE from ankles to inferior knee, slightly warm. Skin opening on left medial alvarez that is hemostatic. No open wounds on RLE, 2+ dorsalis pedis pulses BLE Neurologic: Cranial nerves II through XII grossly intact. Normal speech ED Course/MDM: DDX including but not limited to trauma, venous stasis ulcer, CHF, lymphedema, osteomyelitis CBC Bacitracin 08/03/19 20:38 CBC WBC 9.3 K/mm3 (4.0-10.0) 08/03/19 21:29 RBC 4.87 M/mm3 (4.00-5.60) 08/03/19 21:29 Hgb 13.4 GM/dL (11.7-16.9) 08/03/19 21:29 Hct 40.6 % (35.4-49) 08/03/19 21:29 MCV 83.3 fl (80-96) 08/03/19 21:29 MCH 27.5 pg (25.7-33.7) 08/03/19 21: MCHC 33.0 g/dl (32.0-35.9) 08/03/19 21:29 RDW 14.9 % (11.9-15.9) 08/03/19 21:29 Plt Count 165 K/MM3 (134-434) 08/03/19 21:29 MPV 8.9 fl (7.5-11.1) 08/03/19 21:29 Absolute Neuts (auto) 6.7 K/mm3 (1.5-8.0) 08/03/19 21: Neutrophils % 71.5 % (42.8-82.8) 08/03/19 21: Lymphocytes % 13.9 % (8-40) D 08/03/19 21: Monocytes % 8.2 % (3.8-10.2) 08/03/19 21:29 Eosinophils % 5.1 % (0-4.5) H 08/03/19 21: Basophils % 1.3 % (0-2.0) 08/03/19 21: Nucleated RBC % 0 % (0-0) 08/03/19 21:29 No leukocytosis Wound is still hemostatic 08/03/19 21:59 Wound covered with sterile dressing Patient discharged with return precautions *DC/Admit/Observation/Transfer Diagnosis at time of Disposition: Laceration - Discharge Dispostion Disposition: HOME Condition at time of disposition: Improved - Referrals Referrals: Matthew Teran [Primary Care Provider] - - Patient Instructions Printed Discharge Instructions: DI for Minor Laceration Additional Instructions: You came to the emergency department for a bleeding wound on your left leg. The wound was dressed and you did not need to get stitches. Follow-up with your primary care provider within 72 hours to discuss this ED visit and to further evaluate your wound. Call tomorrow morning and make an appointment. Your workup is not complete until you do so. Keep the area clean. Avoid scratching the area. RETURN to the emergency department if you experience: redness or hardness around the wound, pain or tenderness, a red streak, yellow or green discharge oozing from the wound, fever or chills. - Post Discharge Activity
--- NOTE | 2019-08-03 21:08 | PDOC ---
Documentation entered by Loren Zheng SCRIBE, acting as scribe for Margaret Lorenzana MD. Margaret Lorenzana MD: This documentation has been prepared by the Norm cabrera Brenda, SCRIBE, under my direction and personally reviewed by me in its entirety. I confirm that the documentation accurately reflects all work, treatment, procedures, and medical decision making performed by me. Attending Attestation - Resident Resident Name: Bhargavi BarcenasЕкатерина - ED Attending Attestation I have performed the following: I have examined & evaluated the patient, The case was reviewed & discussed with the resident, I agree w/resident's findings & plan, Exceptions are as noted - HPI HPI: 08/03/19 20:57 he patient is a 58 year old male with a significant past medical history of HTN , HLD, CAD (s/p stent placement), and DM who presents to the ED with mild venous bleeding from his left lower leg after he scratched it Allergies: JAVED PCP: Dr. Teran - Physicial Exam PE: 08/03/19 21:03 58-year-old male presents with left leg bleeding from site he scratched himself 08/03/19 21:04 58-year-old male presents in no acute distress. Head normocephalic/atraumatic. Neck supple Lungs are clear to auscultation bilaterally CVS regular rate and rhythm S1, S2 Abdomen protuberant, nontender. Extremities chronic venous stasis with some scattered psoriatic plaques,no active bleeding currently, erythematous LE b/l, good ,dp pulses neuro axox3 - Medical Decision Making 08/03/19 21:17 pt w chronic venous stasis,edema,erythema,psoriasis who scratched his leg,now bleeding is controlled w bandage and pt discharged home 08/09/19 23:03 08/09/19 23:04
[2019-08-03] MEDS ORDERED: BACITRACIN 15 GM TUBE TOPICAL OINTMENT TP ONE (21:15)
[2019-08-03 21:36] VITALS: BP 159/88; PULSE 55; TEMP 98.2; BMI 40.6
[2019-08-03] MEDS ORDERED: BACITRACIN 0.9 GM PACKET ONE (21:38)
[2019-08-03 21:47] LABS: BASO % 1.3 % (0-2.0); EOS % 5.1 % (0-4.5); HEMATOCRIT 40.6 % (35.4-49); HEMOGLOBIN 13.4 GM/dL (11.7-16.9); LYMPH % 13.9 % (8-40); MCH 27.5 pg (25.7-33.7); MEAN CELL VOLUME 83.3 fl (80-96); MEAN PLT VOLUME 8.9 fl (7.5-11.1); MONO % 8.2 % (3.8-10.2); NEUT % 71.5 % (42.8-82.8); PLATELET COUNT 165 K/MM3 (134-434); RBC 4.87 M/mm3 (4.00-5.60); RDW 14.9 % (11.9-15.9); WHITE BLOOD COUNT 9.3 K/mm3 (4.0-10.0)
== END 2019-08-03 22:29 | disposition home or self-care (01) ==
LOC: JER 20:29
DX: S81.802A Unspecified open wound, left lower leg, initial encounter (principal); I83.12 Varicose veins of left lower extremity with inflammation; I83.11 Varicose veins of right lower extremity with inflammation; Y33.XXXA Other specified events, undetermined intent, initial encounter; Y93.89 Activity, other specified; Y92.038 Other place in apartment as the place of occurrence of the external cause; Y99.8 Other external cause status; I25.10 Atherosclerotic heart disease of native coronary artery without angina pectoris; I10 Essential (primary) hypertension; Z95.5 Presence of coronary angioplasty implant and graft; E11.9 Type 2 diabetes mellitus without complications; Z79.84 Long term (current) use of oral hypoglycemic drugs; E78.5 Hyperlipidemia, unspecified
CPT/HCPCS: 36415; 85025; 99282-25

== ENCOUNTER 2019-08-14 22:57 | Emergency (ER) | payer BC ==
[2019-08-14 23:05] VITALS: BP 164/67; PULSE 65; TEMP 97.5; BMI 39.4
[2019-08-14] MEDS ORDERED: LIDOCAINE 1%/EPI 1:100000 (20 ML MULTI DOSE VIAL) ONE (23:33)
--- NOTE | 2019-08-15 00:36 | PDOC ---
History of Present Illness - General Chief Complaint: Laceration Stated Complaint: L/FOOT/BLEEDING Time Seen by Provider: 08/14/19 23:06 History Source: Patient Exam Limitations: No Limitations Past History - Past Medical History Allergies/Adverse Reactions: Allergies Allergy/AdvReac Type Severity Reaction Status Date / Time No Known Allergies Allergy Verified 08/14/19 23:06 Home Medications: Ambulatory Orders Aspirin [Aspirin EC] 81 mg PO DAILY 06/08/18 Atorvastatin Ca [Lipitor] 80 mg PO HS 06/08/18 Carvedilol [Coreg -] 25 mg PO BID 06/08/18 Glimepiride 4 mg PO DAILY 06/08/18 Oxycodone HCl 5 mg PO Q6H PRN 06/08/18 Cephalexin [Keflex] 500 mg PO DAILY 08/14/19 Furosemide [Lasix] 40 mg PO BID 08/14/19 Liraglutide [Victoza -] 1.8 mg SQ DAILY@0700 08/14/19 Valsartan [Diovan] 320 mg PO DAILY 08/14/19 Anemia: No Asthma: No Cancer: No Cardiac Disorders: Yes (stent placement) CVA: No COPD: No CHF: No Dementia: No Diabetes: Yes GI Disorders: Yes (ULCERS) Disorders: No HTN: Yes Hypercholesterolemia: Yes Liver Disease: No Seizures: No Thyroid Disease: No - Surgical History Abdominal Surgery: No Appendectomy: No Cardiac Surgery: Yes (stents) Cholecystectomy: No Lung Surgery: No Neurologic Surgery: Yes (lumbar sacral surgery) Orthopedic Surgery: Yes (r wrist arthroscopy, r knee arthroscopy, L 2nd toe revision) - Suicide/Smoking/Psychosocial Hx Smoking Status: No Smoking History: Never smoked Have you smoked in the past 12 months: No Number of Cigarettes Smoked Daily: 0 If you are a former smoker, when did you quit?: "on and off" for many years Hx Alcohol Use: No Drug/Substance Use Hx: No Substance Use Type: None Hx Substance Use Treatment: No *Physical Exam - Vital Signs Last Vital Signs Temp Pulse Resp BP Pulse Ox 97.5 F L 65 20 164/67 94 L 08/14/19 23:03 08/14/19 23:03 08/14/19 23:03 08/14/19 23:03 08/14/19 23:03 - Physical Exam General Appearance: No: Apparent Distress Respiratory/Chest: positive: Lungs Clear, Normal Breath Sounds. negative: Respiratory Distress Cardiovascular: positive: Regular Rhythm, Regular Rate, S1, S2. negative: Murmur Extremity: positive: Other (Point area along medial aspect of LLE with blood oozing out; +venous stasis changes to BLE, no varicose veins noted, no open wound or laceration or pustular drainage) Neurologic: positive: Alert Medical Decision Making - Medical Decision Making 58 y/o M hx of HTN, HLD, DM, CAD s/p PCI 2005, PRITI, renal insuffiency, PUD presents with sudden onset of bleeding along LLE while taking a shower. Patient is on baby ASA. This has occurred in the past and patient was seen last week for similar complaint, though at that time, the bleeding stopped with pressure dressing. Patient is currently taking Keflex; was started on it last week (has been off and on abx). Patient has multiple doctors he follows with, including vascular doctor. Denies fever, sob, cp, abd pain, vomiting. Initially surgicel was placed but noted to be bleeding through surgicel Pressure dressing applied Plan was to inject lido/epi and possibly do figure 8 stitch if needed to control bleeding However, on reassessment, bleeding had stopped with surgicel Patient monitored for some time and no rebleeding occurred Patient has f/u with his PCP next week 08/15/19 00:32 *DC/Admit/Observation/Transfer Diagnosis at time of Disposition: Bleeding - Discharge Dispostion Disposition: HOME Condition at time of disposition: Stable Decision to Admit order: No - Referrals Referrals: Matthew Teran [Primary Care Provider] - - Patient Instructions Additional Instructions: Thank you for choosing [facility]. It was a pleasure taking care of you. Your bleeding was controlled here for now Please continue follow-up with your vascular doctor and primary care doctor Return to the Emergency Department if your symptoms worsen or persist, you have fever, shortness of breath, chest pain, heavy bleeding, pustular drainage or other concerning symptoms. - Post Discharge Activity
== END 2019-08-15 00:42 | disposition home or self-care (01) ==
LOC: JER 22:57
DX: R58 Hemorrhage, not elsewhere classified (principal); I87.8 Other specified disorders of veins; I25.10 Atherosclerotic heart disease of native coronary artery without angina pectoris; I13.10 Hypertensive heart and chronic kidney disease without heart failure, with stage 1 through stage 4 chronic kidney disease, or unspecified chronic kidney disease; N18.9 Chronic kidney disease, unspecified; Z95.5 Presence of coronary angioplasty implant and graft; E11.9 Type 2 diabetes mellitus without complications; Z79.84 Long term (current) use of oral hypoglycemic drugs; E78.00 Pure hypercholesterolemia, unspecified; G47.33 Obstructive sleep apnea (adult) (pediatric); Z87.11 Personal history of peptic ulcer disease
CPT/HCPCS: 99281-25

== ENCOUNTER 2019-09-01 15:43 | Inpatient (IN) | payer BC ==
--- NOTE | 2019-09-01 16:44 | PDOC ---
History of Present Illness - General History Source: Patient - History of Present Illness Occurred: reports: other Lower Extremity Pain Location: bilateral: other (b/l LE) <Analia Fraser - Last Filed: 09/04/19 21:15> <Aguila Lockwood - Last Filed: 09/06/19 15:28> - General Chief Complaint: Wound Stated Complaint: WOUND Time Seen by Provider: 09/01/19 16:41 Past History - Past Medical History Anemia: No Asthma: No Cancer: No Cardiac Disorders: Yes (stent placement) CVA: No COPD: No CHF: No Dementia: No Diabetes: Yes GI Disorders: Yes (ULCERS) Disorders: No HTN: Yes Hypercholesterolemia: Yes Liver Disease: No Seizures: No Thyroid Disease: No - Surgical History Abdominal Surgery: No Appendectomy: No Cardiac Surgery: Yes (stents) Cholecystectomy: No Lung Surgery: No Neurologic Surgery: Yes (lumbar sacral surgery) Orthopedic Surgery: Yes (r wrist arthroscopy, r knee arthroscopy, L 2nd toe revision) - Immunization History Immunization Up to Date: Yes - Psycho Social/Smoking Cessation Hx Smoking Status: No Smoking History: Never smoked Have you smoked in the past 12 months: No Number of Cigarettes Smoked Daily: 0 If you are a former smoker, when did you quit?: "on and off" for many years Information on smoking cessation initiated: No Hx Alcohol Use: No Drug/Substance Use Hx: No Substance Use Type: None Hx Substance Use Treatment: No <Shante FraserPacoSuri - Last Filed: 09/04/19 21:15> <Aguila Lockwood - Last Filed: 09/06/19 15:28> - Past Medical History Allergies/Adverse Reactions: Allergies Allergy/AdvReac Type Severity Reaction Status Date / Time No Known Allergies Allergy Verified 09/01/19 15:51 Home Medications: Ambulatory Orders Atorvastatin Ca [Lipitor] 80 mg PO HS 06/08/18 Carvedilol [Coreg -] 25 mg PO BID 06/08/18 Glimepiride 4 mg PO DAILY 06/08/18 Oxycodone HCl 5 mg PO Q8H PRN 06/08/18 Hydralazine HCl 50 mg PO BID 09/01/19 Umeclidinium [place] [Incruse Ellipta] 62.5 mcg IH DAILY 09/01/19 Amlodipine Besylate [Norvasc -] 10 mg PO DAILY #30 tablet 09/02/19 Apremilast [Otezla] See Taper PO DAILY 09/02/19 Gabapentin [Neurontin -] 100 mg PO TID #90 capsule 09/02/19 Clindamycin [Cleocin -] 300 mg PO Q6H #12 capsule 09/03/19 Review of Systems - Review of Systems Constitutional: No: Chills, Fever Respiratory: No: Shortness of Breath Cardiac (ROS): No: Chest Pain, Lightheadedness, Palpitations <Analia Fraser - Last Filed: 09/04/19 21:15> *Physical Exam - Vital Signs Last Vital Signs Temp Pulse Resp BP Pulse Ox 98.0 F 69 18 137/74 97 09/01/19 15:46 09/01/19 15:46 09/01/19 15:46 09/01/19 15:46 09/01/19 15:46 - Physical Exam General Appearance: Yes: Appropriately Dressed. No: Apparent Distress HEENT: positive: Normal Voice Neck: positive: Supple Respiratory/Chest: positive: Lungs Clear, Normal Breath Sounds. negative: Respiratory Distress Cardiovascular: positive: Regular Rate, S1, S2 Extremity: positive: Swelling, Other (hyperpigmented skin to b/l LE w/ diffuse ttp, RLE>LLE, + scattered areas of intense erythema throughout RLE, ? superimposed infection) Integumentary: positive: Dry, Warm Neurologic: positive: Fully Oriented, Alert, Normal Mood/Affect, Motor Strength 5/5 <Analia Fraser - Last Filed: 09/04/19 21:15> - Vital Signs Last Vital Signs Temp Pulse Resp BP Pulse Ox 98.2 F 55 L 18 127/61 98 09/03/19 14:00 09/03/19 14:00 09/03/19 14:00 09/03/19 14:00 09/03/19 09:00 <Aguila Lockwood - Last Filed: 09/06/19 15:28> ED Treatment Course - LABORATORY CBC & Chemistry Diagram: 09/03/19 07:25 09/03/19 07:25 <Analia Fraser - Last Filed: 09/04/19 21:15> - LABORATORY CBC & Chemistry Diagram: 09/03/19 07:25 09/03/19 07:25 - ADDITIONAL ORDERS Additional order review: 09/01/19 17:25 RBC 5.11 MCV 83.4 MCHC 31.4 L RDW 15.0 MPV 8.4 Neutrophils % 74.8 Lymphocytes % 13.2 Monocytes % 7.9 Eosinophils % 3.3 Basophils % 0.8 - Medications Given in the ED: ED Medications Discontinued Medications Generic Name Dose Route Start Last Admin Trade Name Justin PRN Reason Stop Dose Admin Acetaminophen 1,000 mg 09/02/19 00:03 09/02/19 01:36 Ofirmev Injection - IVPB 09/02/19 00:04 1,000 mg ONCE ONE Administration Amlodipine Besylate 10 mg 09/03/19 10:00 09/03/19 10:20 Norvasc - PO 10 mg DAILY PREM Administration Atorvastatin Calcium 80 mg 09/02/19 22:00 09/02/19 21:47 Lipitor - PO 80 mg HS PREM Administration Bacitracin 1 applic 09/02/19 10:00 09/03/19 10:19 Bacitracin - TP 1 applic DAILY PREM Administration Carvedilol 25 mg 09/02/19 10:00 09/03/19 10:20 Coreg - PO 25 mg BID PREM Administration Clindamycin HCl 300 mg 09/01/19 18:07 09/01/19 18:24 Cleocin - PO 09/01/19 18:08 300 mg ONCE ONE Administration Furosemide 40 mg 09/02/19 06:00 09/02/19 06:18 Lasix - PO 40 mg BIDLASIX PREM Administration Gabapentin 100 mg 09/02/19 09:45 09/03/19 14:28 Neurontin - PO 100 mg TID PREM Administration Heparin Sodium (Porcine) 5,000 unit 09/02/19 06:00 09/03/19 15:35 Heparin - SQ Not Given TID PREM Hydralazine HCl 50 mg 09/02/19 10:00 09/03/19 10:20 Apresoline - PO 50 mg BID PREM Administration Linezolid 600 mg in 300 mls @ 300 mls/hr 09/01/19 22:15 09/02/19 11:36 Zyvox 600 Mg Premix Bag (Restricted To Id) - IV Not Given BID [facility] Protocol Piperacillin Sod/Tazobactam 50 mls @ 100 mls/hr 09/01/19 22:15 09/02/19 11:37 Sod 3.375 gm/ Dextrose IVPB Not Given Q8H-IV PREM Protocol Linezolid 600 mg in 300 mls @ 300 mls/hr 09/01/19 22:45 09/02/19 11:48 Zyvox 600 Mg Premix Bag (Restricted To Id) - IV 09/02/19 10:59 Not Given BID PREM Protocol Piperacillin Sod/Tazobactam 50 mls @ 100 mls/hr 09/01/19 23:00 09/02/19 11:37 Sod 3.375 gm/ Dextrose IVPB 09/02/19 18:29 Not Given Q8H-IV PREM Protocol Vancomycin HCl 1,000 mg in 250 mls @ 166.667 mls/hr 09/02/19 13:00 09/02/19 18:21 Vancomycin (Pre-Docked) IVPB 09/02/19 14:29 166.667 mls/hr ONCE ONE Administration Protocol Ceftriaxone Sodium 1 gm/ 50 mls @ 100 mls/hr 09/02/19 12:30 09/03/19 10:19 Dextrose IVPB 100 mls/hr DAILY PREM Administration Protocol Insulin Aspart 1 vial 09/02/19 07:00 09/03/19 06:11 Novolog Vial Sliding Scale - SQ 2 units BIDAC PREM Administration Protocol Oxycodone HCl 5 mg 09/02/19 11:43 09/03/19 10:20 Roxicodone - PO 5 mg Q8H PRN Administration PAIN LEVEL 6-10 Tramadol HCl 50 mg 09/01/19 16:48 09/01/19 17:12 Ultram - PO 09/01/19 16:49 50 mg ONCE ONE Administration Valsartan 320 mg 09/02/19 10:00 09/02/19 11:49 Diovan - PO 320 mg DAILY PREM Administration <Aguila Lockwood - Last Filed: 09/06/19 15:28> Medical Decision Making - Medical Decision Making 09/01/19 16:44 58 yo M, HTN, IDDM, CAD s/p PCI, on asa, PRITI, CKD, PUD, venous stasis, chronic LE edema w/ chronic "burning pain" to b/l LE, f/u with pain management and on oxycodone, LE cellulitis, DVT and ? PE, not on AC currently, vertebral osteo, here with persistent pain. States oxycodone helps sometimes. Last seen by his pain doctor 2 weeks ago and states "they just keep giving me pain meds". Patient was seen in wound clinic prior to coming to the ER today and had b/l LE US but does not know results. States he is supposed to be applying Vaseline to legs at home. Pt states he was not referred to the ED from wound clinic, but decided to come on his own for his chronic pain. Patient unclear if R leg appears more red now. No f/c or malaise. Denies SOB, CP or palpitations. No h/o DVT See exam Venous stasis w/ chronic pain On narcotics from pain management w/ some relief Stable and in NAD w/ hyperpigmentation diffusely to b/l LE w/ ? superimposed cellulitis to RLE -pain control -abx -labs -s/p US today at [facility] per pt, will check records -dispo pending 09/01/19 18:08 Labs unremarkable. No record of US pt states he had today but pretty adamant he had one. Per records pt was seen by Dr. Diego Contreras of vascular in wound clinic today but I am unable to see MD's notes. Will place consult now to discuss disposition 09/01/19 18:48 Pt signed out to NATALIO Cerna pending CB from vascular to discuss dispo <Analia Fraser - Last Filed: 09/04/19 21:15> - Medical Decision Making The patient was seen and evaluated in conjunction with NATALIO Fraser under my direct supervision, ancillary studies were reviewed. I agree with the plan as outlined by NATALIO Fraser . 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
[2019-09-01] MEDS ORDERED: traMADol HCL 50 MG TABLET PO ONE (16:48)
[2019-09-01] MEDS ORDERED: traMADol HCL 50 MG TABLET ONE (17:04)
[2019-09-01 17:41] LABS: BASO % 0.8 % (0-2.0); EOS % 3.3 % (0-4.5); HEMATOCRIT 42.6 % (35.4-49); HEMOGLOBIN 13.4 GM/dL (11.7-16.9); LYMPH % 13.2 % (8-40); MCH 26.2 pg (25.7-33.7); MCHC 31.4 g/dl (32.0-35.9); MEAN CELL VOLUME 83.4 fl (80-96); MEAN PLT VOLUME 8.4 fl (7.5-11.1); MONO % 7.9 % (3.8-10.2); NEUT % 74.8 % (42.8-82.8); PLATELET COUNT 214 K/MM3 (134-434); RBC 5.11 M/mm3 (4.00-5.60); WHITE BLOOD COUNT 11.7 K/mm3 (4.0-10.0)
[2019-09-01] MEDS ORDERED: CLINDAMYCIN HCL 150 MG CAPSULE (FP) PO ONE (18:07)
[2019-09-01] MEDS ORDERED: CLINDAMYCIN HCL 150 MG CAPSULE (FP) ONE (18:12)
[2019-09-01 18:15] LABS: ALBUMIN 3.2 g/dl (3.4-5.0); BILIRUBIN,TOTAL 0.4 mg/dL (0.2-1); BLOOD UREA NITROGEN 43.8 mg/dL (7-18); CALCIUM 8.8 mg/dL (8.5-10.1); CREATININE 2.6 mg/dL (0.55-1.3); POTASSIUM 3.7 mmol/L (3.5-5.1); TOT PROT 7.9 g/dl (6.4-8.2)
--- NOTE | 2019-09-01 19:25 | PDOC ---
*Physical Exam - Vital Signs Last Vital Signs Temp Pulse Resp BP Pulse Ox 98.0 F 69 18 137/74 97 09/01/19 15:46 09/01/19 15:46 09/01/19 15:46 09/01/19 15:46 09/01/19 15:46 - Physical Exam General Appearance: Yes: Appropriately Dressed Extremity: positive: Other (b/l lower extremity edema right left erythema > left leg. no streaking) Neurologic: positive: Fully Oriented, Alert ED Treatment Course - LABORATORY CBC & Chemistry Diagram: 09/01/19 17:25 09/01/19 17:25 - ADDITIONAL ORDERS Additional order review: Laboratory Results 09/01/19 17:25 Sodium 141 Potassium 3.7 Chloride 104 Carbon Dioxide 30 Anion Gap 6 L BUN 43.8 H Creatinine 2.6 H Est GFR (CKD-EPI)AfAm 29.94 Est GFR (CKD-EPI)NonAf 25.83 Random Glucose 98 Calcium 8.8 Total Bilirubin 0.4 AST 14 L ALT 20 Alkaline Phosphatase 83 Total Protein 7.9 Albumin 3.2 L 09/01/19 17:25 RBC 5.11 MCV 83.4 MCHC 31.4 L RDW 15.0 MPV 8.4 Neutrophils % 74.8 Lymphocytes % 13.2 Monocytes % 7.9 Eosinophils % 3.3 Basophils % 0.8 - Medications Given in the ED: ED Medications Discontinued Medications Generic Name Dose Route Start Last Admin Trade Name Freq PRN Reason Stop Dose Admin Clindamycin HCl 300 mg 09/01/19 18:07 09/01/19 18:24 Cleocin - PO 09/01/19 18:08 300 mg ONCE ONE Administration Tramadol HCl 50 mg 09/01/19 16:48 09/01/19 17:12 Ultram - PO 09/01/19 16:49 50 mg ONCE ONE Administration Medical Decision Making - Medical Decision Making 09/01/19 20:[address] perez. considering increased pain, leukocystosis will admit for cellulitis. patient to the admitted under hospitalist service. 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
--- NOTE | 2019-09-01 21:31 | PN ---
Teaching Attending Note Name of Resident: Mishel Cavazos ATTENDING PHYSICIAN STATEMENT I saw and evaluated the patient. I reviewed the resident's note and discussed the case with the resident. I agree with the resident's findings and plan as documented. SUBJECTIVE: Patient is a 58 year old man with PMH of NIDDM, HTN, CAD (s/p stent), PRITI, CKD, PUD, Venous stasis with chronic LE edema, HLD and ?Psoriasis who presents with worsening bilateral leg redness and pain. Patient just completed a course of oral antibiotics - does not remember the name. Deneis fever, chills, headache, SOB, dysuria, nausea, vomiting, chest pain or abdominal pain. Nonsmoker. Denies alcohol abuse or current use of illicit drugs - used cocaine in the past. FH is noncontributory. No recent travels or sick contacts. OBJECTIVE: Alert Vital Signs Period Temp Pulse Resp BP Sys/Pelletier Pulse Ox Last 24 Hr 98.0 F 69 18 137/74 97 HEENT: No Jaundice, eye redness or discharge, PERRLA, EOMI. Normocephalic, atraumatic. External ears are normal and hearing is grossly intact. No nasal discharge. Neck: Supple, nontender. No palpable adenopathy or thyromegaly. No JVD Chest: Good effort. Clear to auscultation and percussion. Heart: Regular. No S3, rub or murmur Abdomen: Not distended, soft, nontender and no HSM. No rebound or guarding. Normal bowel sounds. Ext: Peripheral pulses intact. Bilateral leg erythema with tenderness and lymphedema (R>L). No obvious ulcers or wounds. Skin: Warm and dry. No petechiae, rash or ecchymosis. Neuro: Alert. Oriented x3. CN 2-12 grossly intact. Sensation grossly intact in all four extremities and DTR are symmetric. Psych: Appropriate mood and affect. Good insight. Current Medications Generic Name Dose Route Start Last Admin Trade Name Freq PRN Reason Stop Dose Admin Heparin Sodium (Porcine) 5,000 unit 09/02/19 02:00 Heparin - SQ Q8H-IV PREM Linezolid 600 mg/ 300 mls @ 300 mls/hr 09/01/19 22:15 Miscellaneous IV Q12H [facility] Protocol Piperacillin Sod/Tazobactam 50 mls @ 100 mls/hr 09/01/19 22:15 Sod 3.375 gm/ Dextrose IVPB Q8H-IV [facility] Protocol Insulin Aspart 0 vial 09/02/19 07:00 Novolog Vial Sliding Scale - SQ BIDAC [facility] Protocol Home Medications Medication Instructions Recorded Aspirin [Aspirin EC] 81 mg PO DAILY 06/08/18 Atorvastatin Ca [Lipitor] 80 mg PO HS 06/08/18 Carvedilol [Coreg -] 25 mg PO BID 06/08/18 Glimepiride 4 mg PO DAILY 06/08/18 Oxycodone HCl 5 mg PO Q8H PRN 06/08/18 Cephalexin [Keflex] 500 mg PO DAILY 08/14/19 Furosemide [Lasix] 40 mg PO BID 08/14/19 Liraglutide [Victoza -] 1.2 mg SQ DAILY@0700 08/14/19 Valsartan [Diovan] 320 mg PO DAILY 08/14/19 Apremilast [Otezla] 30 mg PO DAILY 09/01/19 Hydralazine HCl 50 mg PO BID 09/01/19 Abnormal Lab Results 09/01/19 09/01/19 17:25 17:25 WBC 11.7 H MCHC 31.4 L Absolute Neuts (auto) 8.7 H Anion Gap 6 L BUN 43.8 H Creatinine 2.6 H AST 14 L Albumin 3.2 L ASSESSMENT AND PLAN: 1. Leg cellulitis - Otto has had chronic stasis dermatitis that is now secondarily infected. Will treat with IV linezolid and zosyn. Encourage leg elevation at night an consult ID and Podiatry. No acute abnormality on CXR and no DVT on leg doppler. Will continue comprehensive care for all of patients comorbid conditions. 2. Hypoalbuminemia - Possibly due to combined effects of malnutrition and inflammation associated with comorbid chronic conditions. Will ensure adequate dietary protein intake and also consult residential energy auditor. 3. DM For now, we will hold the home diabetes drugs and implement sliding scale insulin regimen. Provide comprehensive diabetes care with patient teaching and counseling about the importance of adherence to prescribed diabetes regimen, euglycemia, eye care and foot care. 4. CKD - Has multiple risk factors for CKD - needs basic nephrologic work up. Get UA, kidney sonogram, PTH and phosphate. Will consult nephrology and avoid nephrotoxic agents such as NSAIDS, aminoglycosides, contrast dyes and certain Alternative medicine products. 5. Obesity Counseled on the risks associated with obesity. Will provide patient all the necessary assistance, counseling and positive reinforcement to facilitate weight loss. Consult residential energy auditor. 6. Hypertension - Restart suitable outpatient antihypertensive drugs when clinically appropriate. Revise regimen to ensure [id number] excellent BP control and group counselor patient on the injurious effects of uncontrolled hypertension. Nonpharmacologic measures to control hypertension like weight loss , salt restriction and exercise discussed. Importance of adherence to treatment regimen and attainment of normotension emphasized. 7. DVT prophylaxis - Heparin 5000u sq tid. 8. Advance directives - Full code
--- NOTE | 2019-09-01 22:05 | HP ---
CHIEF COMPLAINT: PCP: Dr. Teran HISTORY OF PRESENT ILLNESS: 58 y/o/m with PMHx of DM, liver disease(unknown), PVD, HTN, HLD, CAD s/p 1 stent , PRITI on bipap here for swelling and redness of both lower extremities. Patient states that his right leg originally started to have some redness after an open wound 8 months ago and his left leg started to have redness 5 months ago but he does not recall having any wounds or trauma to the left leg. He has been on abx multiple times, most recently on cephalexin, with temporary improvement in pain but the redness and swelling has never subsided. Today he saw Dr. Ben carreno the wound care clinic and had an U/S of the lower extremities done. He decided to come in because he has burning pain in both legs and it was worse today, 07/11. The pain is worse with walking and gets a little better when he elevates his legs. He uses a compression machine on his legs at home but recently has not been able to use it due to worsening pain. he denies any fever, chills, chest pain, SOB, abd pain, constipation, N/V/D, numbness, tingling, or other symptoms. Patient complains of pain in his right knee and right shoulder as well. He is prescribed Oxycodone for the right knee and shoulder pain which is chronic. He has been told he needs to have surgery on both joints but has not had surgery yet. He last saw an eye doctor about 1 year ago, he does not recall the last time he saw a environmental services floor tech. ER course was notable for: (1) Clinda and Zosyn given (2) Spoke with Dr. Contreras, recommended admission in wake of elevated WBC and worsening pain Recent Travel: none PAST MEDICAL HISTORY: DM, liver disease(unknown), PVD, HTN, HLD, CAD s/p 1 stent, PRITI on bipap PAST SURGICAL HISTORY: denies Social History: Smoking: quit 30 years ago, previous heavy use Alcohol: social EtOH use Drugs: previous use of cocaine (inhaled) and MJ, denies current use of any illicit drugs Works as a [employer] Allergies No Known Allergies Allergy (Verified 09/01/19 15:51) HOME MEDICATIONS: Home Medications Medication Instructions Recorded Aspirin [Aspirin EC] 81 mg PO DAILY 06/08/18 Atorvastatin Ca [Lipitor] 80 mg PO HS 06/08/18 Carvedilol [Coreg -] 25 mg PO BID 06/08/18 Glimepiride 4 mg PO DAILY 06/08/18 Oxycodone HCl 5 mg PO Q6H PRN 06/08/18 Cephalexin [Keflex] 500 mg PO DAILY 08/14/19 Furosemide [Lasix] 40 mg PO BID 08/14/19 Liraglutide [Victoza -] 1.8 mg SQ DAILY@0700 08/14/19 Valsartan [Diovan] 320 mg PO DAILY 08/14/19 REVIEW OF SYSTEMS Constitutional: denies weakness, fever, chills HEENT: denies sore throat, congestion Cardio: denies chest pain, lightheadedness, palpitations Resp: denies SOB, cough GI: denies abd pain, N/V/D, constipation MSK: Right knee, Right shoulder pain. denies back pain SKIN: redness and swelling of both lower extremities with burning pain. denies any open wounds Neuro: denies numbness, tingling, weakness Psych: denies anxiety PHYSICAL EXAMINATION Vital Signs - 24 hr 09/01/19 15:46 Temperature 98.0 F Pulse Rate 69 Respiratory 18 Rate Blood Pressure 137/74 O2 Sat by Pulse 97 Oximetry (%) GENERAL: mild distress due to pain. Awake, alert, and fully oriented HEAD: Normal with no signs of trauma. EYES: PERRL, EOMI EARS, NOSE, THROAT: nares patent, oropharynx clear without exudates. Moist mucous membranes. NECK: Normal range of motion, supple without lymphadenopathy. LUNGS: Breath sounds equal, clear to auscultation bilaterally. No wheezes, and no crackles. No accessory muscle use. HEART: Regular rate and rhythm, normal S1 and S2 without murmur, rub or gallop. ABDOMEN: Soft, nontender, not distended, normoactive bowel sounds, no guarding, no rebound, no masses. MUSCULOSKELETAL: pain with flexion of right knee, tenderness to palpation of right calf. no CVA tenderness UPPER EXTREMITIES: 2+ pulses, warm, well-perfused. No cyanosis. No clubbing. No peripheral edema. LOWER EXTREMITIES: Diffuse erythema and swelling of both lower extremites, on the right leg the erythema ranges from the knee to the ankle, worse on the medial aspect of the right lower extremity, on the left the leg the erythema ranges from the ankle to the mid calf. minimal amount of serous drainge from both lower extremities. no open wounds. no erythema of either foot, no ulcers noted. 2+ pulses, warm NEUROLOGICAL: Cranial nerves II-XII intact. Normal speech. 5/5 strength of upper and lower extremities PSYCHIATRIC: Cooperative. Good eye contact. Appropriate mood and affect. SKIN: dry erythematous skin on both lower extremities. normal capillary refill. Laboratory Results - last 24 hr 09/01/19 09/01/19 17:25 17:25 WBC 11.7 H RBC 5.11 Hgb 13.4 Hct 42.6 MCV 83.4 MCH 26.2 MCHC 31.4 L RDW 15.0 Plt Count 214 D MPV 8.4 Absolute Neuts (auto) 8.7 H Neutrophils % 74.8 Lymphocytes % 13.2 Monocytes % 7.9 Eosinophils % 3.3 Basophils % 0.8 Nucleated RBC % 0 Sodium 141 Potassium 3.7 Chloride 104 Carbon Dioxide 30 Anion Gap 6 L BUN 43.8 H Creatinine 2.6 H Est GFR (CKD-EPI)AfAm 29.94 Est GFR (CKD-EPI)NonAf 25.83 Random Glucose 98 Calcium 8.8 Total Bilirubin 0.4 AST 14 L ALT 20 Alkaline Phosphatase 83 Total Protein 7.9 Albumin 3.2 L Imaging: CXR - no acute pathology Vascular study of right leg - no DVT of right leg noted ASSESSMENT/PLAN: 58 y/o/m with PMHx of DM, liver disease(unknown), PVD, HTN, HLD, CAD s/p 1 stent , PRITI on bipap here for swelling and redness of both lower extremities, worse on right leg 1)Cellulitis of B/L lower extremities - patient has had worsening erythema of both legs over the last 8 months and has failed outpatient therapy. -likely due to venous statis dematits worsened by secondary infection -Started on Zosyn and Linezolid -ID consulted - Dr. Gray -encourage elevating legs 2)CKD - patient with history of elevated BUN/Cr. now almost double previous values -Nephrology consulted - Dr. Gomez -UA -PTH, Phosphate ordered -Kidney and bladder U/S to r/o obstruction 3)DM -Hold home meds, on Insulin sliding scale 4)HTN -continue home meds -monitor 5)Prophylaxis -Heparin 6)Disposition -admitted to med/surg Visit type - Emergency Visit Emergency Visit: Yes ED Registration Date: 09/01/19 Care time: The patient presented to the Emergency Department on the above date and was hospitalized for further evaluation of their emergent condition. - New Patient This patient is new to me today: Yes Date on this admission: 09/02/19 - Critical Care Critical Care patient: No ATTENDING PHYSICIAN STATEMENT I saw and evaluated the patient. I reviewed the resident's note and discussed the case with the resident. I agree with the resident's findings and plan as documented. SUBJECTIVE: OBJECTIVE: ASSESSMENT AND PLAN:
[2019-09-01] MEDS ORDERED: PIPERACILLIN/TAZOB 3.375 GM 3.375 GM/50 ML BAG IVPB ONE ×2 (22:29→22:37)
[2019-09-01] MEDS: PIPERACILLIN/TAZOB 3.375 GM 3.375 GM in DEXTROSE 5%-WATER - 50 ML IVPB SCH ×2 (22:47→23:12)
[2019-09-01] MEDS ORDERED: LINEZOLID 600 MG PREMIX BAG 600 MG/300 ML BAG IV ONE (23:00)
[2019-09-01] MEDS ORDERED: PATIENT'S OWN MEDICATION (NON-FORMULARY) (Oxycodone Hcl [Oxycodone Hcl] 5 MG) PO PRN (23:12)
[2019-09-02] MEDS ORDERED: ACETAMINOPHEN 1000 MG/100 ML VIAL (NON FORMULARY) IVPB ONE (00:03)
[2019-09-02] MEDS: LINEZOLID 600 MG PREMIX BAG 600 MG/300 ML BAG IV SCH ×3 (00:51→11:48)
[2019-09-02 03:37] VITALS: BMI 39.0
[2019-09-02] MEDS ORDERED: FUROSEMIDE 40 MG TABLET (FP) PO SCH (06:00)
[2019-09-02] MEDS: HEPARIN NA (PORCINE) 5,000 UNITS/ML 1ML VIAL SQ SCH ×3 (06:18→21:46)
[2019-09-02] MEDS: INSULIN SLIDING SCALE (NOVOLOG) 1 VIAL SQ SCH ×2 (06:19→17:46)
[2019-09-02 08:12] LABS: HEMATOCRIT 40.3 % (35.4-49); HEMOGLOBIN 12.8 GM/dL (11.7-16.9); MCH 26.4 pg (25.7-33.7); MCHC 31.6 g/dl (32.0-35.9); MEAN CELL VOLUME 83.5 fl (80-96); MEAN PLT VOLUME 8.9 fl (7.5-11.1); PLATELET COUNT 174 K/MM3 (134-434); RBC 4.83 M/mm3 (4.00-5.60); RDW 14.9 % (11.9-15.9); WHITE BLOOD COUNT 9.1 K/mm3 (4.0-10.0)
[2019-09-02 08:45] LABS: ALBUMIN 2.7 g/dl (3.4-5.0); BILIRUBIN,TOTAL 0.5 mg/dL (0.2-1); BLOOD UREA NITROGEN 42.6 mg/dL (7-18); CALCIUM 8.6 mg/dL (8.5-10.1); CREATININE 2.4 mg/dL (0.55-1.3); PHOSPHOROUS 4.2 mg/dL (2.5-4.9); POTASSIUM 3.6 mmol/L (3.5-5.1); TOT PROT 6.9 g/dl (6.4-8.2)
--- NOTE | 2019-09-02 09:06 | CONSULT ---
- Consultation REQUESTING PROVIDER: CONSULT REQUEST: We have been asked to surgically evaluate this patient for bilateral leg skin changes PCP:Blair Guerrero MD HISTORY OF PRESENT ILLNESS: 58yo M h/o bilateral leg swelling and skin changes x 6 months. Pt states that the irritation and skin changes have been getting worse. Has been seen by Dr. Hernandez (Vascular) and Numerical Control Nesting Operator, but skin not getting any better. Pt denies any history of vascular surgery in the past. Pt was recently seen in wound care clinic and had NAVIX study. PMHx: DM, HTN, HLD Home Medications Medication Instructions Recorded Atorvastatin Ca [Lipitor] 80 mg PO HS 06/08/18 Carvedilol [Coreg -] 25 mg PO BID 06/08/18 Glimepiride 4 mg PO DAILY 06/08/18 Oxycodone HCl 5 mg PO Q8H PRN 06/08/18 Furosemide [Lasix] 40 mg PO BID 08/14/19 Valsartan [Diovan] 320 mg PO DAILY 08/14/19 Hydralazine HCl 50 mg PO BID 09/01/19 Umeclidinium [place] [Incruse 62.5 mcg IH DAILY 09/01/19 Ellipta] Allergies Allergy/AdvReac Type Severity Reaction Status Date / Time No Known Allergies Allergy Verified 09/01/19 15:51 PHYSICAL EXAM: GENERAL: Awake, alert, and fully oriented, in no acute distress. HEAD: Normal with no signs of trauma. EYES: PERRL, sclera anicteric, conjunctiva clear. NECK: Normal ROM LUNGS: breathing comfortably, No accessory muscle use. HEART: Regular rate and rhythm. LOWER EXTREMITIES: 2+ pulses, warm, well-perfused. No calf tenderness. +2 edema Rt>Lt, chronic circumferential hyperpigmentation lower legs bilaterally, no open wounds or drainage. NEUROLOGICAL: Normal speech, gait not observed. PSYCH: Cooperative. Good eye contact. Appropriate mood and affect. SKIN: Warm, dry, normal turgor, no rashes or lesions noted. Vital Signs Temperature 97.5 F L 09/02/19 05:42 Pulse Rate 58 L 09/02/19 05:42 Respiratory Rate 20 09/02/19 05:42 Blood Pressure 136/64 09/02/19 05:42 O2 Sat by Pulse Oximetry (%) 95 09/01/19 23:30 Lab Results WBC 9.1 K/mm3 (4.0-10.0) 09/02/19 07:50 RBC 4.83 M/mm3 (4.00-5.60) 09/02/19 07:50 Hgb 12.8 GM/dL (11.7-16.9) 09/02/19 07:50 Hct 40.3 % (35.4-49) 09/02/19 07:50 MCV 83.5 fl (80-96) 09/02/19 07:50 MCHC 31.6 g/dl (32.0-35.9) L 09/02/19 07:50 RDW 14.9 % (11.9-15.9) 09/02/19 07:50 Plt Count 174 K/MM3 (134-434) 09/02/19 07:50 Sodium 142 mmol/L (136-145) 09/02/19 07:50 Potassium 3.6 mmol/L (3.5-5.1) 09/02/19 07:50 Chloride 106 mmol/L (98-107) 09/02/19 07:50 Carbon Dioxide 29 mmol/L (21-32) 09/02/19 07:50 Anion Gap 7 MMOL/L (8-16) L 09/02/19 07:50 BUN 42.6 mg/dL (7-18) H 09/02/19 07:50 Creatinine 2.4 mg/dL (0.55-1.3) H 09/02/19 07:50 Random Glucose 128 mg/dL (74-106) H 09/02/19 07:50 Calcium 8.6 mg/dL (8.5-10.1) 09/02/19 07:50 Problem List - Problems (1) Venous stasis dermatitis of both lower extremities Assessment/Plan: Plan -spoke extensively to pt about needing chronic wound care and to follow up with wound care clinic for venous dermatitis. -will recommend bacitracin with compression dressing for now. -follow up with wound care clinic as outpatient -tight glycemic control -consider neuralgia medications, such as gabapentin Case discussed with Dr. Contreras who agrees with plan Code(s): I87.2 - VENOUS INSUFFICIENCY (CHRONIC) (PERIPHERAL)
[2019-09-02] MEDS ORDERED: VALSARTAN 160 MG TABLET (UD) PO SCH (10:00)
--- NOTE | 2019-09-02 11:34 | EKG ---
Test Reason : Blood Pressure : / mmHG Vent. Rate : 062 BPM Atrial Rate : 062 BPM P-R Int : 132 ms QRS Dur : 114 ms QT Int : 440 ms P-R-T Axes : 080 -50 079 degrees QTc Int : 446 ms SINUS RHYTHM WITH PREMATURE SUPRAVENTRICULAR COMPLEXES AND WITH OCCASIONAL PREMATURE VENTRICULAR COMPLEXES LEFT AXIS DEVIATION INFERIOR INFARCT , AGE UNDETERMINED ABNORMAL ECG WHEN COMPARED WITH ECG OF 08-JUN-2018 16:39, PREMATURE VENTRICULAR COMPLEXES ARE NOW PRESENT RIGHT BUNDLE BRANCH BLOCK IS NO LONGER PRESENT Confirmed by ALISSA CLINE, JH ([id number]) on 09/02/2019 11:34:11 AM Referred By: Confirmed By:JH MAXWELL MD
[2019-09-02] MEDS: PIPERACILLIN/TAZOB 3.375 GM 3.375 GM in DEXTROSE 5%-WATER - 50 ML IVPB SCH ×2 (11:37)
[2019-09-02] MEDS: hydrALAZINE HCL 50 MG TABLET (FP) PO SCH ×2 (11:49→21:47)
[2019-09-02] MEDS: CARVEDILOL 25 MG TABLET (FP) PO SCH ×2 (11:49→21:47)
[2019-09-02] MEDS: GABAPENTIN 100 MG CAPSULE (FP) PO SCH ×3 (11:49→21:47)
[2019-09-02] MEDS: BACITRACIN 15 GM TUBE TOPICAL OINTMENT TP SCH (11:50)
--- NOTE | 2019-09-02 12:18 | CONSULT ---
Consult - text type - Consultation Consultation Note: Renal consult for acute kidney injury This is a 58 year old gentleman with history of CAD s/p PCI with stenting, hypertension, PVD, liver dysfunction, PRITI, hx of FANI who presents with swelling and reddness of bilateral lower extremities and noted to have Cr of 2.6. Pt reports that his legs are really not much more swollen then ususal but they are red and tender now. Pt is on Lasix and valsartan at home. Denies any NSAID use. Was told by his PMD that his kidney function was not normal at baseline. Denies any dysuria, frequency, urgency, hematuria or flank pain. No recent contrast exposure. Denies any sob, cp, abd pain, N/V/D. PMHx: as above Allergies: NKDA Family Hx: NC Social Hx: No T/A/D ROS: as per HPI, all other pertinent ros negative Home Medications Medication Instructions Recorded Atorvastatin Ca [Lipitor] 80 mg PO HS 06/08/18 Carvedilol [Coreg -] 25 mg PO BID 06/08/18 Glimepiride 4 mg PO DAILY 06/08/18 Oxycodone HCl 5 mg PO Q8H PRN 06/08/18 Furosemide [Lasix] 40 mg PO BID 08/14/19 Valsartan [Diovan] 320 mg PO DAILY 08/14/19 Hydralazine HCl 50 mg PO BID 09/01/19 Umeclidinium [place] [Incruse 62.5 mcg IH DAILY 09/01/19 Ellipta] Vital Signs Temperature 98 F 09/02/19 11:00 Pulse Rate 63 09/02/19 11:00 Respiratory Rate 20 09/02/19 11:00 Blood Pressure 148/90 09/02/19 11:00 O2 Sat by Pulse Oximetry (%) 95 09/01/19 23:30 Intake & Output 08/30/19 08/31/19 09/01/19 09/02/19 23:59 23:59 23:59 23:59 Intake Total 400 Output Total 200 Balance 200 Weight 123.519 kg NAD awake and alert neck supple RRR CTA soft, obese, NT/ND soft NT/ND no LE edema CBC, BMP 09/02/19 07:50 09/02/19 07:50 Laboratory Tests 09/02/19 07:50 Calcium 8.6 Phosphorus 4.2 Albumin 2.7 L Current Medications Atorvastatin Calcium (Lipitor -) 80 mg PO HS [facility] Bacitracin (Bacitracin -) 1 applic TP DAILY [facility] Last Admin: 09/02/19 11:50 Dose: 1 applic Carvedilol (Coreg -) 25 mg PO BID [facility] Last Admin: 09/02/19 11:49 Dose: 25 mg Gabapentin (Neurontin -) 100 mg PO TID [facility] Last Admin: 09/02/19 11:49 Dose: 100 mg Heparin Sodium (Porcine) (Heparin -) 5,000 unit SQ TID [facility] Last Admin: 09/02/19 06:18 Dose: 5,000 unit Hydralazine HCl (Apresoline -) 50 mg PO BID [facility] Last Admin: 09/02/19 11:49 Dose: 50 mg Vancomycin HCl 1,000 mg/ (Dextrose) 250 mls @ 166.667 mls/hr IVPB ONCE ONE; Protocol Stop: 09/02/19 13:44 Ceftriaxone Sodium 1 gm/ (Dextrose) 100 mls @ 200 mls/hr IVPB DAILY [facility]; Protocol Insulin Aspart (Novolog Vial Sliding Scale -) 1 vial SQ BIDAC [facility]; Protocol Last Admin: 09/02/19 06:19 Dose: Not Given Oxycodone HCl (Roxicodone -) 5 mg PO Q8H PRN PRN Reason: PAIN LEVEL 6-10 Valsartan (Diovan -) 320 mg PO DAILY [facility] Last Admin: 09/02/19 11:49 Dose: 320 mg 58 year old gentleman with history of CAD s/p PCI with stenting, hypertension, PVD, liver dysfunction, PRITI, hx of FANI who presents with swelling and redness of bilateral lower extremities and noted to have Cr of 2.6. 1. Acute kidney injury vs. CKD 2. Lower extremity cellulitis 3. Hypertension 4. CAD 5. Hyperlipidemia Baseline Cr as of June was 2.1 as per medical support assistant. Rise in Cr to 2.4 most likely due to volume shifts/mild hypovolemia as Cr improved s/p IVF. Check urine studies for FeUrea, UPCR. Follow up renal US results. Would hold ARB for now pending recovery of renal function to baseline. Hold Lasix as well for now. If pt is discharged would have him follow up with PMD within 2-3 days and repeat labs continue management of LE erythema as per ID/primary team. Can replace Valsartan with CCB (i.e Amlodipine) for the time being to maintain BP control Continue hydralzine would benefit from outpatient follow up with nephrology Danilo Gomez DO
--- NOTE | 2019-09-02 12:18 | PN ---
Progress Note (short form) - Note Progress Note: ID CONSULT DICTATED CELLULITIS LE BILATERALLY DIABETES MELLITUS CKD AWAIT C/S EMPIRIC VANCOMYCIN/ CEFTRIAXONE, ADJUSTED FOR CKD
[2019-09-02] MEDS ORDERED: VANCOMYCIN 1 GRAM (PRE-DOCKED) 1,000 MG/250 ML BAG IVPB ONE (13:00)
[2019-09-02 14:55] LABS: EPI CELLS 0.3 /HPF (0-5/HPF); HYALINE CASTS 0 /lpf (0-8); URINE APPEARANCE CLEAR; URINE BACTERIA 0.3 /hpf (NEGATIVE); URINE BILIRUBIN NEGATIVE (NEGATIVE); URINE COLOR YELLOW; URINE GLUCOSE (UA) NEGATIVE (NEGATIVE); URINE KETONE NEGATIVE (NEGATIVE); URINE LEUK ESTERASE NEGATIVE (NEGATIVE); URINE NITRITE NEGATIVE (NEGATIVE); URINE PROTEIN 3+ (NEGATIVE); URINE RBC 2 /hpf (0-4); URINE UROBILINOGEN 0.2 mg/dL (0.2-1.0); URINE WBC 0 /hpf (0-5)
[2019-09-02] MEDS ORDERED: cefTRIAXone SODIUM 1 GM VIAL ONE (17:22)
[2019-09-02] MEDS ORDERED: DEXTROSE 5%-WATER - 50 ML IVPB ONE (17:23)
[2019-09-02] MEDS: oxyCODONE HCL 5 MG TABLET PO PRN (18:19)
[2019-09-02] MEDS: CEFTRIAXONE 1 GM in DEXTROSE 5%-WATER - 50 ML IVPB SCH (18:21)
--- NOTE | 2019-09-02 19:14 | PN ---
Teaching Attending Note Name of Resident: Francisco Jackson ATTENDING PHYSICIAN STATEMENT I saw and evaluated the patient. I reviewed the resident's note and discussed the case with the resident. I agree with the resident's findings and plan as documented. Seen and examined; please see resident note for further details. Spoke with his vascular surgeon at length as well as the patient. He has been having intense itching secondary to his underlying psoriasis for which he sees an OP chemical processing equipment repairer and has recently started new medication (added to list). He has chronic venous stasis changes that are known with underlying PAD (states never had an angio) and he heard that we had HBO therapy and so he wanted to come. He was quite surprised he was admitted. Noted multiple consults placed. He has chronic neuropathic pain symptoms that are not relieved with PRN therapy that have been progressive for months. He has psoriatic changes and b/l LE changes RLE>LLE with some warmth VS, labs, imaging reviewed NAD, AAO, resting in bed NC AT EOMI PERRLA RRR s1/2 NT ND +BS CN2-12 wnl, no fnd Normal mood, appropriate behavior ASSESSMENT AND PLAN: Patient with b/l PAD and underlying psoriasis following with dermatology presents with suspected cellulitis; redness and changes noted ID input noted. Problems include: -suspected cellulitis -FANI on CKD -PAD -Psoriasis Abx per ID, deferring. Continue home meds. Avoid nephrotoxic agents and followup BMP.
--- NOTE | 2019-09-02 19:49 | PN ---
Progress Note (short form) - Note Progress Note: HPI: Briefly 58yo M who was seen due to his leg changes. Pt reports his legs being painful with a burning sensation especially with activity or when they are resting below his center mass. Pt reports he was at wound care getting a venous U/S with Dr. Contreras when his leg started to bleed. He was sent to the ER for further evaluation and subsequently placed on ABX and admitted. Pt reports his legs will weep sometimes, however this time it was only blood without weeping or exudates. Vital Signs Temperature 98.0 F 09/02/19 18:20 Pulse Rate 67 09/02/19 18:20 Respiratory Rate 20 09/02/19 18:20 Blood Pressure 136/95 09/02/19 18:20 O2 Sat by Pulse Oximetry (%) 95 09/02/19 09:00 PE: GEN: NAD, awake, alert,oriented HEENT: NC/AT, KAN, MMM LUNGS: CTA b/l no wheezes or rales CARD: RRR no murmur EXT: Trace-1+ edema, see skin exam Skin: B/l venous stasis changes with superimposed psoriasis plaques noted. Warmth noted same as rest of leg. No lacerations, open wounds, ulcerations appreciated CBC, BMP 09/02/19 07:50 09/02/19 07:50 Active Medications Amlodipine Besylate (Norvasc -) 10 mg PO DAILY [facility] Atorvastatin Calcium (Lipitor -) 80 mg PO HS [facility] Bacitracin (Bacitracin -) 1 applic TP DAILY [facility] Last Admin: 09/02/19 11:50 Dose: 1 applic Carvedilol (Coreg -) 25 mg PO BID [facility] Last Admin: 09/02/19 11:49 Dose: 25 mg Gabapentin (Neurontin -) 100 mg PO TID [facility] Last Admin: 09/02/19 13:26 Dose: 100 mg Heparin Sodium (Porcine) (Heparin -) 5,000 unit SQ TID [facility] Last Admin: 09/02/19 13:26 Dose: 5,000 unit Hydralazine HCl (Apresoline -) 50 mg PO BID [facility] Last Admin: 09/02/19 11:49 Dose: 50 mg Ceftriaxone Sodium 1 gm/ (Dextrose) 50 mls @ 100 mls/hr IVPB DAILY [facility]; Protocol Last Admin: 10/02/19 18:21 Dose: 100 mls/hr Insulin Aspart (Novolog Vial Sliding Scale -) 1 vial SQ BIDAC [facility]; Protocol Last Admin: 09/02/19 17:46 Dose: Not Given Oxycodone HCl (Roxicodone -) 5 mg PO Q8H PRN PRN Reason: PAIN LEVEL 6-10 Last Admin: 09/02/19 18:19 Dose: 5 mg A/P: Peripheral arterial disease vs. peripheral venous disease Psoriasis Acute on CKD vs. CKD Type 2 DM HTN HLD CAD s/p stenting PRITI --Introduce Gabapentin 100mg TID and uptitrate as tolerated --UA, renal U/S, urine creatine, and UUrea for FeUrea to be calculated --Will obtain Cr from PCP for more recent baseline --Hold ACEi and Lasix and switch to Norvasc 10mg qdaily for BP control --Pt has f/u with vascular in 3 days alongside of regular follow-ups --Discontinue antibiotics as legs without signs of infection currently --Ordered CPAP 5mmH20 at night per baseline --Continue home medications below: Lipitor 80mg HS Coreg 25mg BID FEN: Fluids: None Electrolyte abnormalities: None Nutrition: Diabetic, sodium controlled PPX: DVT - Heparin TID Dispo: D/C pending Case discussed with Dr. Yolanda Jackson, DO - IM PGY-3
[2019-09-02] MEDS ORDERED: ATORVASTATIN CA 80 MG TABLET (FP) PO SCH (22:00)
[2019-09-03] MEDS: INSULIN SLIDING SCALE (NOVOLOG) 1 VIAL SQ SCH (06:11)
[2019-09-03] MEDS: HEPARIN NA (PORCINE) 5,000 UNITS/ML 1ML VIAL SQ SCH ×2 (06:11→15:35)
[2019-09-03] MEDS: GABAPENTIN 100 MG CAPSULE (FP) PO SCH ×2 (06:11→14:28)
[2019-09-03 07:43] LABS: BASO % 1.1 % (0-2.0); EOS % 5.5 % (0-4.5); HEMATOCRIT 39.7 % (35.4-49); HEMOGLOBIN 12.8 GM/dL (11.7-16.9); LYMPH % 17.2 % (8-40); MCH 26.7 pg (25.7-33.7); MCHC 32.2 g/dl (32.0-35.9); MEAN CELL VOLUME 83.1 fl (80-96); MEAN PLT VOLUME 8.7 fl (7.5-11.1); MONO % 9.1 % (3.8-10.2); NEUT % 67.1 % (42.8-82.8); PLATELET COUNT 187 K/MM3 (134-434); RBC 4.78 M/mm3 (4.00-5.60); RDW 14.8 % (11.9-15.9); WHITE BLOOD COUNT 7.1 K/mm3 (4.0-10.0)
[2019-09-03 08:22] LABS: ALBUMIN 2.9 g/dl (3.4-5.0); BILIRUBIN,TOTAL 1.7 mg/dL (0.2-1); BLOOD UREA NITROGEN 39.5 mg/dL (7-18); CALCIUM 8.6 mg/dL (8.5-10.1); CREATININE 2.4 mg/dL (0.55-1.3); POTASSIUM 3.8 mmol/L (3.5-5.1); TOT PROT 7.2 g/dl (6.4-8.2)
[2019-09-03] MEDS ORDERED: amLODIPine BESYLATE 10 MG TABLET (FP) PO SCH (10:00)
[2019-09-03 10:10] LABS: ERYTHROCYTE SEDIMENTATION RATE 55 mm/hr (0-20)
[2019-09-03] MEDS ORDERED: cefTRIAXone SODIUM 1 GM VIAL ONE (10:10)
[2019-09-03] MEDS ORDERED: DEXTROSE 5%-WATER - 50 ML IVPB ONE (10:11)
[2019-09-03] MEDS: CEFTRIAXONE 1 GM in DEXTROSE 5%-WATER - 50 ML IVPB SCH (10:19)
[2019-09-03] MEDS: BACITRACIN 15 GM TUBE TOPICAL OINTMENT TP SCH (10:19)
[2019-09-03] MEDS: CARVEDILOL 25 MG TABLET (FP) PO SCH (10:20)
[2019-09-03] MEDS: hydrALAZINE HCL 50 MG TABLET (FP) PO SCH (10:20)
[2019-09-03] MEDS: oxyCODONE HCL 5 MG TABLET PO PRN (10:20)
--- NOTE | 2019-09-03 13:30 | DS ---
Physical Exam: SUBJECTIVE: No events overnight. No complaints today. OBJECTIVE: Vital Signs Period Temp Pulse Resp BP Sys/Pelletier Pulse Ox Last 24 Hr 97.7 F-98.9 F 58-67 20-20 115-144/68-95 98 PHYSICAL EXAM GEN: NAD, awake, alert,oriented HEENT: NC/AT, KAN, MMM LUNGS: CTA b/l no wheezes or rales CARD: RRR no murmur EXT: Trace edema, see skin exam Skin: B/l venous stasis changes with superimposed psoriasis plaques noted. Warmth noted same as rest of leg. No lacerations, open wounds, ulcerations appreciated LABS Laboratory Results - last 24 hr 09/02/19 09/02/19 09/03/19 07:00 07:50 06:10 WBC RBC Hgb Hct MCV MCH MCHC RDW Plt Count MPV Absolute Neuts (auto) Neutrophils % Lymphocytes % Monocytes % Eosinophils % Basophils % Nucleated RBC % ESR Sodium 142 Potassium 3.6 Chloride 106 Carbon Dioxide 29 Anion Gap 7 L BUN 42.6 H Creatinine 2.4 H Est GFR (CKD-EPI)AfAm 32.98 Est GFR (CKD-EPI)NonAf 28.46 POC Glucometer 160 Random Glucose 128 H Calcium 8.6 Phosphorus 4.2 Total Bilirubin 0.5 AST 11 L ALT 17 Alkaline Phosphatase 76 C-Reactive Protein 4.4 H Total Protein 6.9 Albumin 2.7 L Urine Color Yellow Urine Appearance Clear Urine pH 6.0 Ur Specific [place] 1.015 Urine Protein 3+ H Urine Glucose (UA) Negative Urine Ketones Negative Urine Blood Negative Urine Nitrite Negative Urine Bilirubin Negative Urine Urobilinogen 0.2 Ur Leukocyte Esterase Negative Urine WBC (Auto) 0 Urine RBC (Auto) 2 Urine Casts (Auto) 0 U Epithel Cells (Auto) 0.3 Urine Bacteria (Auto) 0.3 09/03/19 09/03/19 07:25 07:25 WBC 7.1 RBC 4.78 Hgb 12.8 Hct 39.7 MCV 83.1 MCH 26.7 MCHC 32.2 RDW 14.8 Plt Count 187 MPV 8.7 Absolute Neuts (auto) 4.8 Neutrophils % 67.1 Lymphocytes % 17.2 D Monocytes % 9.1 Eosinophils % 5.5 H Basophils % 1.1 Nucleated RBC % 0 ESR 55 H Sodium 140 Potassium 3.8 Chloride 104 Carbon Dioxide 30 Anion Gap 7 L BUN 39.5 H Creatinine 2.4 H Est GFR (CKD-EPI)AfAm 32.98 Est GFR (CKD-EPI)NonAf 28.46 POC Glucometer Random Glucose 159 H Calcium 8.6 Phosphorus Total Bilirubin 1.7 H AST 13 L ALT 17 Alkaline Phosphatase 74 C-Reactive Protein Total Protein 7.2 Albumin 2.9 L Urine Color Urine Appearance Urine pH Ur Specific [place] Urine Protein Urine Glucose (UA) Urine Ketones Urine Blood Urine Nitrite Urine Bilirubin Urine Urobilinogen Ur Leukocyte Esterase Urine WBC (Auto) Urine RBC (Auto) Urine Casts (Auto) U Epithel Cells (Auto) Urine Bacteria (Auto) Microbiology 09/01/19 21:17 Blood - Peripheral Venous Blood Culture - Preliminary NO GROWTH OBTAINED AFTER 24 HOURS, INCUBATION TO CONTINUE FOR 4 DAYS. 09/01/19 21:15 Blood - Peripheral Venous Blood Culture - Preliminary NO GROWTH OBTAINED AFTER 24 HOURS, INCUBATION TO CONTINUE FOR 4 DAYS. Imaging: Bladder U/S: IMPRESSION: Nonspecific heterogeneous normal volume prostate gland. Unremarkable ultrasound of the urinary bladder with small post void urinary residual of 30 cc which is likely clinically not significant. Renal U/S: IMPRESSION: Increased bilateral renal cortical echogenicity suggestive of chronic medical renal disease. No hydronephrosis seen CXR: No acute chest pathology. Slightly tortuous aorta ECG: SINUS RHYTHM WITH PREMATURE SUPRAVENTRICULAR COMPLEXES AND WITH OCCASIONAL PREMATURE VENTRICULAR COMPLEXES LEFT AXIS DEVIATION INFERIOR INFARCT , AGE UNDETERMINED ABNORMAL ECG WHEN COMPARED WITH ECG OF 08-JUN-2018 16:39, PREMATURE VENTRICULAR COMPLEXES ARE NOW PRESENT RIGHT BUNDLE BRANCH BLOCK IS NO LONGER PRESENT Qtc 446ms HOSPITAL COURSE: Date of Admission:09/01/19 Date of Discharge: 09/03/19 Pt admitted 09/01/19 due to have edema and erythema of lower extremities with suspected PAD and questionable superimposed cellulitis. Incidentally in workup pt was noted to have 2.6 Cr with unknown recent baseline (1.6 in 2018). Pt was seen by infectious disease and vascular surgery who reported to continue one dose of ABX (Rocephin and Vancomycin renally dosed) and to follow-up with vein mapping respectively. Pt was initiated on Gabapentin 100mg TID PO with goals of uptitration as tolerated on outpatient setting as deemed appropriate by his PCP. Renal U/S and FeUrea resolved showing only echogeneic kidneys (as above) and intrinsic disease. Pt's baseline Cr was obtained (2.01 June 2019) and pt was informed to follow-up with his physicians for further management. In addition he is to hold his home Lasix and Diovan dose. For BP control he was changed to Norvasc 10mg qdaily which has been efficacious in control. Pt is being discharged with instructions to follow-up with his [facility] physicians for management and to continue his Gabapentin. Minutes to complete discharge: 35 <Francisco Jackson - Last Filed: 09/03/19 13:47> Physical Exam: SUBJECTIVE: Patient seen and examined OBJECTIVE: Vital Signs Period Temp Pulse Resp BP Sys/Pelletier Pulse Ox Last 24 Hr 97.5 F-98.2 F 55-61 16-20 127-152/61-98 98 PHYSICAL EXAM GENERAL: The patient is awake, alert, and fully oriented, in no acute distress. HEAD: Normal with no signs of trauma. EYES: PERRL, extraocular movements intact, sclera anicteric, conjunctiva clear. ENT: Ears normal, nares patent, oropharynx clear without exudates, moist mucous membranes. NECK: Trachea midline, full range of motion, supple. LUNGS: Breath sounds equal, clear to auscultation bilaterally, no wheezes, no crackles, no accessory muscle use. HEART: Regular rate and rhythm, S1, S2 without murmur, rub or gallop. ABDOMEN: Soft, nontender, nondistended, normoactive bowel sounds, no guarding, no rebound, no hepatosplenomegaly, no masses. EXTREMITIES: 2+ pulses, warm, well-perfused, no edema. NEUROLOGICAL: Cranial nerves II through XII grossly intact. Normal speech, gait not observed. PSYCH: Normal mood, normal affect. SKIN: Warm, dry, normal turgor, no rashes or lesions noted. LABS Laboratory Results - last 24 hr 09/02/19 09/03/19 09/03/19 07:50 06:10 07:25 WBC 7.1 RBC 4.78 Hgb 12.8 Hct 39.7 MCV 83.1 MCH 26.7 MCHC 32.2 RDW 14.8 Plt Count 187 MPV 8.7 Absolute Neuts (auto) 4.8 Neutrophils % 67.1 Lymphocytes % 17.2 D Monocytes % 9.1 Eosinophils % 5.5 H Basophils % 1.1 Nucleated RBC % 0 ESR 55 H Sodium Potassium Chloride Carbon Dioxide Anion Gap BUN Creatinine Est GFR (CKD-EPI)AfAm Est GFR (CKD-EPI)NonAf POC Glucometer 160 Random Glucose Calcium Total Bilirubin AST ALT Alkaline Phosphatase Total Protein Albumin PTH Intact 33 09/03/19 07:25 WBC RBC Hgb Hct MCV MCH MCHC RDW Plt Count MPV Absolute Neuts (auto) Neutrophils % Lymphocytes % Monocytes % Eosinophils % Basophils % Nucleated RBC % ESR Sodium 140 Potassium 3.8 Chloride 104 Carbon Dioxide 30 Anion Gap 7 L BUN 39.5 H Creatinine 2.4 H Est GFR (CKD-EPI)AfAm 32.98 Est GFR (CKD-EPI)NonAf 28.46 POC Glucometer Random Glucose 159 H Calcium 8.6 Total Bilirubin 1.7 H AST 13 L ALT 17 Alkaline Phosphatase 74 Total Protein 7.2 Albumin 2.9 L PTH Intact HOSPITAL COURSE: Date of Admission:09/01/19 Date of Discharge: 09/03/19 Seen and examined; overall stable and improved examination. Morbidly obese. Will refer for sleep study on DC. Exam verified and agree with resident assessment Keep all scheduled followups HBO referral given. <Blair Guerrero - Last Filed: 09/04/19 00:24> Discharge Summary Problems reviewed: Yes Reason For Visit: DIABETES, MELLITUS, BACK PAIN, CELLULITIS AND Current Active Problems Cellulitis and abscess of right lower extremity (Acute) Diabetes mellitus (Acute) Leg pain, bilateral (Acute) Venous stasis (Acute) Venous stasis dermatitis of both lower extremities (Acute) - Home Medications Comprehensive Discharge Medication List: Ambulatory Orders Atorvastatin Ca [Lipitor] 80 mg PO HS 06/08/18 Carvedilol [Coreg -] 25 mg PO BID 06/08/18 Glimepiride 4 mg PO DAILY 06/08/18 Oxycodone HCl 5 mg PO Q8H PRN 06/08/18 Hydralazine HCl 50 mg PO BID 09/01/19 Umeclidinium [place] [Incruse Ellipta] 62.5 mcg IH DAILY 09/01/19 Amlodipine Besylate [Norvasc -] 10 mg PO DAILY #30 tablet 09/02/19 Apremilast [Otezla] See Taper PO DAILY 09/02/19 Gabapentin [Neurontin -] 100 mg PO TID #90 capsule 09/02/19 Clindamycin [Cleocin -] 300 mg PO Q6H #12 capsule 09/03/19 <Francisco Jackson - Last Filed: 09/03/19 13:47> - Home Medications Comprehensive Discharge Medication List: Ambulatory Orders Atorvastatin Ca [Lipitor] 80 mg PO HS 06/08/18 Carvedilol [Coreg -] 25 mg PO BID 06/08/18 Glimepiride 4 mg PO DAILY 06/08/18 Oxycodone HCl 5 mg PO Q8H PRN 06/08/18 Hydralazine HCl 50 mg PO BID 09/01/19 Umeclidinium [place] [Incruse Ellipta] 62.5 mcg IH DAILY 09/01/19 Amlodipine Besylate [Norvasc -] 10 mg PO DAILY #30 tablet 09/02/19 Apremilast [Otezla] See Taper PO DAILY 09/02/19 Gabapentin [Neurontin -] 100 mg PO TID #90 capsule 09/02/19 Clindamycin [Cleocin -] 300 mg PO Q6H #12 capsule 09/03/19 <Blair Guerrero - Last Filed: 09/04/19 00:24> Condition: Stable - Instructions Diet, Activity, Other Instructions: You were seen here due to your legs. You have no infection at this point and your legs are from your veins. We started you on Gabapentin 100mg THREE TIMES DAILY which you should continue. Your primary care doctor can increase the dose over time to help with the burning sensation. In addition, we found that your kidney numbers are slightly elevated. It was at 2.4 right now (your normal is 2.1). Please STOP taking the lasix and the Diovan for the time being as this can effect your kidney function. Instead you will have to take Norvasc (amlodipine 10mg daily) to help with your blood pressure. You will need to see your primary doctor (Dr. Teran) to have your numbers checked. Please take Clindamycin 300mg every 6 hours for another 3 days. Please continue all the rest of your home medications except the one's above. Please see DR. Gutierrez in the office on your next appointment. Referrals: Matthew Teran [Non Staff, Medical] - Nicolas Hernandez MD [Staff Physician] - Deonte Guerra MD [Non Staff, Medical] - Disposition: HOME This patient is new to me today: No Emergency Visit: Yes ED Registration Date: 09/01/19 Care time: The patient presented to the Emergency Department on the above date and was hospitalized for further evaluation of their emergent condition. Critical Care patient: No - Discharge Referral [facility]erred to [facility] No <Francisco Jackson - Last Filed: 09/03/19 13:47> ATTENDING PHYSICIAN STATEMENT I saw and evaluated the patient. I reviewed the resident's note and discussed the case with the resident. I agree with the resident's findings and plan as documented. SUBJECTIVE: OBJECTIVE: ASSESSMENT AND PLAN: <Blair Guerrero - Last Filed: 09/04/19 00:24>
[2019-09-03 15:48] VITALS: BP 127/61; PULSE 55; TEMP 98.2
== END 2019-09-03 15:45 | disposition home or self-care (01) | DRG 603 ==
LOC: JER 15:43 → JERBED 20:18 → J5S 23:38
PROVIDERS: ADMIT Internal Medicine; ATTEND Internal Medicine
DX: L03.115 Cellulitis of right lower limb (principal); N17.9 Acute kidney failure, unspecified; I25.10 Atherosclerotic heart disease of native coronary artery without angina pectoris; G47.33 Obstructive sleep apnea (adult) (pediatric); E78.5 Hyperlipidemia, unspecified; I12.9 Hypertensive chronic kidney disease with stage 1 through stage 4 chronic kidney disease, or unspecified chronic kidney disease; E11.22 Type 2 diabetes mellitus with diabetic chronic kidney disease; N18.9 Chronic kidney disease, unspecified; E66.9 Obesity, unspecified; Z68.39 Body mass index [BMI] 39.0-39.9, adult; E11.51 Type 2 diabetes mellitus with diabetic peripheral angiopathy without gangrene; L40.9 Psoriasis, unspecified; L03.116 Cellulitis of left lower limb; Z95.5 Presence of coronary angioplasty implant and graft; Z87.11 Personal history of peptic ulcer disease
CPT/HCPCS: 36415; 71046-TC-FY; 76775-TC; 76856-TC; 80053; 81003; 82565; 82962; 83970; 84100; 84540; 85025; 85027; 85651; 86140; 87040; 93005; 93010; 93971-TC; 99284-25; J0131; J1644

== ENCOUNTER 2019-11-16 08:23 | Emergency (ER) | payer BC ==
[2019-11-16 08:48] VITALS: BP 144/70; PULSE 83; TEMP 98.5; BMI 39.9
[2019-11-16] MEDS ORDERED: ACETAMINOPHEN 325 MG TABLET (FP) PO ONE (09:27)
[2019-11-16] MEDS ORDERED: ERYTHROMYCIN 0.5% OPHTHALMIC OINTMENT 3.5 GM TUBE OD ONE (09:27)
--- NOTE | 2019-11-16 09:32 | PDOC ---
History of Present Illness - General Chief Complaint: Eye Problem Stated Complaint: RT. EYE PAIN Time Seen by Provider: 11/16/19 08:59 History Source: Patient Exam Limitations: No Limitations Past History - Travel Traveled outside of the country in the last 30 days: No Close contact w/someone who was outside of country & ill: No - Past Medical History Allergies/Adverse Reactions: Allergies Allergy/AdvReac Type Severity Reaction Status Date / Time No Known Allergies Allergy Verified 11/16/19 08:44 Home Medications: Ambulatory Orders Atorvastatin Ca [Lipitor] 80 mg PO HS 06/08/18 Carvedilol [Coreg -] 25 mg PO BID 06/08/18 Glimepiride 4 mg PO DAILY 06/08/18 Oxycodone HCl 5 mg PO Q8H PRN 06/08/18 Hydralazine HCl 50 mg PO BID 09/01/19 Umeclidinium [place] [Incruse Ellipta] 62.5 mcg IH DAILY 09/01/19 Amlodipine Besylate [Norvasc -] 10 mg PO DAILY #30 tablet 09/02/19 Apremilast [Otezla] See Taper PO DAILY 09/02/19 Gabapentin [Neurontin -] 100 mg PO TID #90 capsule 09/02/19 Clindamycin [Cleocin -] 300 mg PO Q6H #12 capsule 09/03/19 Ciprofloxacin 0.3% Eye Drops [Ciloxan 0.3% Eye Drops -] 1 drop OD Q2H #1 bottle 11/16/19 Anemia: No Asthma: No Cancer: No Cardiac Disorders: Yes (stent placement) CVA: No COPD: No CHF: No Dementia: No Diabetes: Yes GI Disorders: Yes (ULCERS) Disorders: No HTN: Yes Hypercholesterolemia: Yes Liver Disease: No Seizures: No Thyroid Disease: No - Surgical History Abdominal Surgery: No Appendectomy: No Cardiac Surgery: Yes (stents) Cholecystectomy: No Lung Surgery: No Neurologic Surgery: Yes (lumbar sacral surgery) Orthopedic Surgery: Yes (r wrist arthroscopy, r knee arthroscopy, L 2nd toe revision) - Immunization History Immunization Up to Date: Yes - Psycho Social/Smoking Cessation Hx Smoking Status: No Smoking History: Never smoked Have you smoked in the past 12 months: No Number of Cigarettes Smoked Daily: 0 If you are a former smoker, when did you quit?: "on and off" for many years Information on smoking cessation initiated: No Hx Alcohol Use: No Drug/Substance Use Hx: No Substance Use Type: None Hx Substance Use Treatment: No Review of Systems - Review of Systems Able to Perform ROS?: Yes Comments:: 11/16/19 09:30 CONSTITUTIONAL: Absent: fever, chills, diaphoresis, generalized weakness, malaise, loss of appetite HEENT: Present: Right eye pain absent: rhinorrhea, nasal congestion, throat pain, throat swelling, difficulty swallowing, mouth swelling, ear pain, visual Changes CARDIOVASCULAR: Absent: chest pain, loss of consciousness, palpitations, irregular heart rate, peripheral edema RESPIRATORY: Absent: cough, shortness of breath, dyspnea with exertion, orthopnea, wheezing, stridor, hemoptysis SKIN: Absent: rash, itching, pallor NEUROLOGIC: Absent: headache, focal weakness or paresthesias, dizziness, unsteady gait, seizure, mental status changes, bladder or bowel incontinence PSYCHIATRIC: Absent: anxiety, depression, suicidal or homicidal ideation, hallucinations. Is the patient limited Romanian proficient: No *Physical Exam - Vital Signs Last Vital Signs Temp Pulse Resp BP Pulse Ox 98.5 F 83 17 144/70 94 L 11/16/19 08:45 11/16/19 08:45 11/16/19 08:45 11/16/19 08:45 11/16/19 08:45 - Physical Exam 11/16/19 09:32 GENERAL: The patient is awake, alert, and fully oriented, in no acute distress. HEAD: Normal with no signs of trauma. EYES: Pupils equal, round and reactive to light, extraocular movements intact, sclera anicteric, L conjunctiva clear. Right conjunctiva is injected injected, tenderness palpation of the upper lid, visual acuity intact 20/20 bilaterally. Difficulty focusing in near pino. HEENT: No nasal congestion or rhinorrhea. No sinus Tenderness. Mucous membranes are moist. No tonsillar erythema, exudate or edema. Uvula is midline. No TM bulging , dullness or erythema EXTREMITIES: Normal range of motion, no edema. NEUROLOGICAL: Normal speech, normal gait. PSYCH: Normal mood, normal affect. SKIN: Warm, Dry, normal turgor, no rashes or lesions noted. Medical Decision Making - Medical Decision Making 11/16/19 09:34 The patient is a 59-year-old male past medical history of hypertension, hyperlipidemia, [id number] diabetes, who presents to the ER today for right eye pain. He states that the pain started yesterday and went to [facility] urgent care. He was diagnosed with conjunctivitis and discharged home on tobramycin drops. He said that the drops started to help yesterday. When he woke up this morning he noticed his eye was in more pain in the eye was more red. He presents to the ER for reevaluation. He states that yesterday they stained his eye and it was negative for abrasions. A/P: Eye pain, conjunctivitis On exam the right eye is injected and very painful to touch. Pupillary reflexes are intact, no haziness behind the cornea Visual acuity is intact bilaterally 20/20 uncorrected. Erythromycin ointment and Tylenol given in the ER Explained to patient he needs to follow-up with an rn ortho Will switch eyedrops to the Cipro drops. Discharge home; she understands needs to follow-up with ophthalmology today or tomorrow. I discussed the physical exam findings, ancillary test results and final diagnoses with the patient. I answered all of the patient's questions. The patient was satisfied with the care received and felt comfortable with the discharge plan and treatment plan. The Patient agrees to follow up with the primary care physician/specialist within 24-72 hours. Return precautions were given. Discharge - Discharge Information Problems reviewed: Yes Clinical Impression/Diagnosis: Conjunctivitis Qualifiers: Conjunctivitis type: acute Acute conjunctivitis type: unspecified Laterality: right Qualified Code(s): H10.31 - Unspecified acute conjunctivitis, right eye Disposition: HOME - Admission No - Follow up/Referral Referrals: Matthew Teran [Primary Care Provider] - - Patient Discharge Instructions Patient Printed Discharge Instructions: DI for Conjunctivitis Additional Instructions: You have conjunctivitis. This is an eye infection. Please use ciprofloxacin drops every 2 hours to the affected eye Please wash her hands frequently Do not wear contact lenses until your infection clears Follow up with ophthalmology today or tomorrow regarding your symptoms. Return to the ER for visual changes, blurry vision, or any new or worsening symptoms. - Post Discharge Activity Work/Back to School Note: Back to Work
[2019-11-16] MEDS ORDERED: ACETAMINOPHEN 325 MG TABLET (FP) ONE (09:41)
[2019-11-16] MEDS ORDERED: ERYTHROMYCIN 0.5% OPHTHALMIC OINTMENT 3.5 GM TUBE ONE ×2 (09:41→09:42)
== END 2019-11-16 09:51 | disposition home or self-care (01) ==
LOC: JER 08:23 → JERFT 08:23
DX: H10.31 Unspecified acute conjunctivitis, right eye (principal); I10 Essential (primary) hypertension; E78.5 Hyperlipidemia, unspecified; E11.9 Type 2 diabetes mellitus without complications; Z95.5 Presence of coronary angioplasty implant and graft; K92.9 Disease of digestive system, unspecified
CPT/HCPCS: 99281-25

== ENCOUNTER 2020-01-04 10:03 | Inpatient (IN) | payer BC ==
[2020-01-04] MEDS ORDERED: ACETAMINOPHEN 1000 MG/100 ML VIAL (NON FORMULARY) IVPB ONE (10:50)
--- NOTE | 2020-01-04 10:50 | PDOC ---
History of Present Illness - General Chief Complaint: Shortness of Breath Stated Complaint: CHF Time Seen by Provider: 01/04/20 10:36 - History of Present Illness Initial Comments: Juan Carlos Mcqueen is a 59yo man with a PMH of HTN, HLD, CAD (s/p stent placement), CHF, CKD, DM, unknown pulm disease (sees pulmonology, on daily inhaler), venous stasis who presents with acute onset of shortness of breath overnight. He states that he had been feeling well but started to have difficulty breathing last night. He tried using his 's albuterol nebulizer with some improvement in his symptoms, but he continued to struggle to breath so came to the hospital. He denies any recent cough, congestion, fever/chills, travel, or change in medications. He has been compliant with his medications, including his diuretic , and says that he has been sticking to a low salt diet. He has chronic leg swelling and redness that he says has improved markedly since he had vein ablations; currently he reports that it looks much better than usual. He does note that he had small kids visiting that were recently diagnosed with influenza. Past History - Past Medical History Allergies/Adverse Reactions: Allergies Allergy/AdvReac Type Severity Reaction Status Date / Time No Known Allergies Allergy Verified 11/16/19 08:44 Home Medications: Ambulatory Orders Atorvastatin Ca [Lipitor] 80 mg PO HS 06/08/18 Carvedilol [Coreg -] 25 mg PO BID 06/08/18 Glimepiride 4 mg PO DAILY 06/08/18 Hydralazine HCl 50 mg PO BID 09/01/19 Umeclidinium [place] [Incruse Ellipta] 62.5 mcg IH DAILY 09/01/19 Amlodipine Besylate [Norvasc -] 10 mg PO DAILY #30 tablet 09/02/19 Apremilast [Otezla] See Taper PO DAILY 09/02/19 Gabapentin [Neurontin -] 100 mg PO TID #90 capsule 09/02/19 Aspirin [ASA -] 81 mg PO DAILY 01/04/20 Furosemide [Lasix -] 40 mg PO DAILY 01/04/20 Liraglutide [Victoza -] 1.8 mg SQ DAILY@0700 01/04/20 Anemia: No Asthma: No Cancer: No Cardiac Disorders: Yes (stent placement) CVA: No COPD: No CHF: No Dementia: No Diabetes: Yes GI Disorders: Yes (ULCERS) Disorders: No HTN: Yes Hypercholesterolemia: Yes Liver Disease: No Seizures: No Thyroid Disease: No - Surgical History Abdominal Surgery: No Appendectomy: No Cardiac Surgery: Yes (stents) Cholecystectomy: No Lung Surgery: No Neurologic Surgery: Yes (lumbar sacral surgery) Orthopedic Surgery: Yes (r wrist arthroscopy, r knee arthroscopy, L 2nd toe revision) - Immunization History Immunization Up to Date: Yes - Psycho Social/Smoking Cessation Hx Smoking Status: No Smoking History: Never smoked Have you smoked in the past 12 months: No Number of Cigarettes Smoked Daily: 0 If you are a former smoker, when did you quit?: "on and off" for many years Information on smoking cessation initiated: No Hx Alcohol Use: No Drug/Substance Use Hx: No Substance Use Type: None Hx Substance Use Treatment: No Review of Systems - Review of Systems Comments:: General: No fevers, no chills, no weight or appetite change, no malaise HEENT: No changes in vision, no changes in hearing, no congestion, no sore throat CV: No chest pain, no palpitations, no LE edema Pulm: + SOB, no cough, no wheezing GI: No nausea or vomiting, no change in bowel habits, no melena : No frequency, no urgency, no dysuria Musc: No back pain, no joint swelling, no recent injury Skin: No rash, no lesions, no erythema Endo: No excessive thirst, no heat/cold intolerance Heme: No unusual bruising or bleeding, no swollen glands Neuro: No syncope, no numbness/tingling, no focal weakness Vasc: No claudication Psych: No recent change in mood, no SI or HI *Physical Exam - Vital Signs Last Vital Signs Temp Pulse Resp BP Pulse Ox 99.7 F H 80 24 H 115/64 99 01/04/20 10:36 01/04/20 10:36 01/04/20 10:36 01/04/20 10:36 01/04/20 10:36 - Physical Exam General: Moderate respiratory distress HEENT: Atraumatic, PERRL, EOMI, MMM, voice normal, normal neck ROM Cards: RRR, no murmur appreciated Pulm: Mildly tachypnic, slight conversational dyspnea on nonrebreather. Clear to auscultation bilaterally, no crackles or wheezing appreciated Abd: Soft, nontender, nondistended Ext: Atraumatic. Distal BLE erythematous, skin thickening, 2+ nonpitting edema c /w known venous stasis and psoriasis. Nontender to palpation. ROM intact. Vasc: Extremities WWP. Skin: BLE skin changes as above Neuro: A&Ox3, CN grossly intact, normal speech, motor/sensory grossly intact and symmetric Psych: Mood appropriate to situation ED Treatment Course - LABORATORY CBC & Chemistry Diagram: 01/04/20 11:04 01/04/20 11:04 Medical Decision Making - Medical Decision Making 01/04/20 10:49 Juan Carlos Mcqueen is a 59yo man with a PMH of HTN, HLD, CAD (s/p stent placement), CHF, CKD, DM, unknown pulm disease (sees pulmonology, on daily inhaler), venous stasis who presents with acute onset of shortness of breath overnight. He denies chest pain, reports compliance with his home medications, and says that he is compliant with his cardiac diet. He reports recent contacts with influenza. - Sats in the 70's on RA. Maintaining sats in 90's on nonrebreather - BiPAP ordered - Concerning for CHF exacerbation, COPD? exacerbation, influenza, pneumonia, ACS though no chest pain reported. Oral temp 99.7, likely febrile. - No recent immobilization, surgery, travel concerning for PE. Leg swelling reportedly improved from baseline. 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 May need duplex US. 01/04/20 11:15 - CXR with congestion. No focal abnormalities - Sats in low-mid 90's on bipap w/ FIO2 75% 01/04/20 11:36 - Bedside US completed. B-lines noted on left lung, decreased EF - Sats improved on BiPAP - Labs pending 01/04/20 12:47 - Labs reviewed. Notable for BNP 4000. Trop negative - Flu negative - Given elevated BNP, congestion on CXR, most likely CHF exacerbation. Will admit for continued hypoxia - Call to Dr Robertson placed - 40mg IV lasix 01/04/20 13:01 - Spoke to Dr Robertson. Will admit to telemetry 02/03/20 14:44 - Duplex US negative for DVT - Pt continues to be stable on BiPAP Discussed with Dr Chris Abbott PGY2 Discharge - Discharge Information Problems reviewed: Yes Clinical Impression/Diagnosis: Hypoxia, SOB (shortness of breath), Pulmonary vascular congestion Condition: Fair - Admission Yes - Follow up/Referral - Patient Discharge Instructions - Post Discharge Activity
[2020-01-04] MEDS ORDERED: ALBUTEROL SO4 2.5/IPRATROPIUM 0.5 INH SOL 3 ML VIAL.NEB. NEB ONE ×5 (10:52→11:55)
[2020-01-04] MEDS ORDERED: ACETAMINOPHEN INJECTION 100 ML IVPB ONE (10:54)
[2020-01-04 11:37] LABS: ARTERIAL BLD GAS O2 SATURATION 95.1 % (95-98); ARTERIAL BLOOD GAS BASE EXCESS 5.7 meq/l (-2-2); ARTERIAL BLOOD GAS PCO2 56.7 mmHg (35-45); ARTERIAL BLOOD GAS PO2 79.8 mmHg (80-100); ARTERIAL BLOOD GAS pH 7.37 (7.35-7.45)
[2020-01-04 11:38] LABS: EOS % 3.2 % (0-4.5); HEMATOCRIT 35.4 % (35.4-49); HEMOGLOBIN 10.7 GM/dL (11.7-16.9); LYMPH % 7.3 % (8-40); MCH 23.2 pg (25.7-33.7); MCHC 30.2 g/dl (32.0-35.9); MEAN CELL VOLUME 76.6 fl (80-96); MEAN PLT VOLUME 8.3 fl (7.5-11.1); NEUT % 80.5 % (42.8-82.8); PLATELET COUNT 199 K/MM3 (134-434); RBC 4.61 M/mm3 (4.00-5.60); RDW 17.6 % (11.9-15.9)
[2020-01-04 11:41] LABS: VENOUS PC02 55.3 mmHg (38-52); VENOUS PH 7.37 (7.31-7.41)
[2020-01-04 11:58] LABS: ALLENS TEST POSITIVE
[2020-01-04 11:59] LABS: VENOUS PO2 < 49 mmHg (28-48)
[2020-01-04 12:07] LABS: ALBUMIN 2.8 g/dl (3.4-5.0); BILIRUBIN,TOTAL 0.4 mg/dL (0.2-1); BLOOD UREA NITROGEN 39.7 mg/dL (7-18); CALCIUM 8.2 mg/dL (8.5-10.1); CREATININE 2.8 mg/dL (0.55-1.3); MAGNESIUM 2.5 mg/dL (1.8-2.4); POTASSIUM 4.2 mmol/L (3.5-5.1); TOT PROT 7.7 g/dl (6.4-8.2)
[2020-01-04 12:10] LABS: INR 1.28 (0.83-1.09); PROTHROMBIN TIME (PATIENT) 15.2 SEC (9.7-13.0)
[2020-01-04 12:13] LABS: ACTIVATED PTT 30.4 SECONDS (25.2-36.5)
[2020-01-04 12:18] LABS: N-TERMINAL BNP 4043.7 pg/ml (5-125)
[2020-01-04] MEDS ORDERED: FUROSEMIDE 40 MG/4 ML INJECTABLE VIAL IVPUSH ONE (12:46)
--- NOTE | 2020-01-04 12:55 | PDOC ---
Documentation entered by Simin Lewis SCRIBE, acting as scribe for Magnolia Perez DO. Magnolia Perez DO: This documentation has been prepared by the Joshua cabrera Nirvannie, SCRIBE, under my direction and personally reviewed by me in its entirety. I confirm that the documentation accurately reflects all work, treatment, procedures, and medical decision making performed by me. Attending Attestation - Resident Resident Name: ScarDona - ED Attending Attestation I have performed the following: I have examined & evaluated the patient, The case was reviewed & discussed with the resident, I agree w/resident's findings & plan, Exceptions are as noted - HPI HPI: 01/04/20 13:10 The patient is a 59 year old male, with a significant past medical history of HTN, HLD, CAD (s/p stent placement), DM, PRITI, venous stasis, who presents to the emergency department with 2 days of shortness of breath and cough. Patient notes his symptoms onset yesterday he notes using his 's albuterol nebulizer , with minimal improvement, prompting his arrival to the ED. He denies any recent fevers, chills, headache or dizziness. He denies any recent nausea, vomit, diarrhea or constipation. He denies any recent chest pain or diaphoresis. He denies any recent dysuria, frequency, urgency or hematuria. Allergies: NKDA Primary Care Physician: Dr. Teran - Physicial Exam PE: 01/04/20 13:11 Constitutional: Awake, alert, oriented. No acute distress. Head: Normocephalic. Atraumatic Eyes: PERRL. EOMI. Conjunctivae are not pale. ENT: Mucous membranes are moist and intact. Posterior pharynx without exudates or erythema. Uvula midline. Neck: Supple. Full ROM. No lymphadenopathy. Cardiovascular: Regular rate. Regular rhythm. S1, S2 regular. Distal pulses are 2+ and symmetric. Pulmonary/Chest: +Diminished breath sounds bilaterally No wheezing, rales or rhonchi. Abdominal: +Obese. Soft and non-distended. There is no tenderness. No rebound , guarding or rigidity. No organomegaly. No palpable masses. Good bowel sounds. Back: No CVA tenderness. Musculoskeletal: 2+ bilateral LE edema with chronic erythema and venous stasis changes. No cyanosis. No clubbing. Full range of motion in all extremities. No calf tenderness. Radial/pedal pulses are intact and 2+ bilaterally Skin: Skin is warm and dry. No petechiae. No purpura. Neurological: Alert and oriented to person, place, and time. Cranial nerves II -XII are grossly intact. Normal speech. Strength is grossly symmetric. No sensory deficits. Psychiatric: Good eye contact. Normal interaction, affect and behavior. - Medical Decision Making 01/04/20 12:50 59yo male with increasing sob -pt with very diminished bs, le swelling -pt hypoxic to 77 on RA -placed on nebs and o2 sat to 91-2 -pt placed on bipap for wob and hypoxia -no pleuritic cp, no cp -states cough recently -temp 99 -will send labs, ekg, cxr, cultures, flu -has been around sick fam members who have had the flu recently -no rhinorrhea or sore throat -pt also with priti 01/04/20 12:55 pt placed on bipap and feeling much better on bipap 75% sats are 92-95% 01/04/20 12:56 pt with vascular congestion on cxr, bnp elevated trop neg elevated bun/cr will duplex the legs pt will need admission for hypoxemia and sob pt currently bipap dependent nebs given will give lasix pt will need admission resident discussing the case with Dr. Robertson 01/04/20 12:58 flu neg Heart Score/ECG Review - ECG Intrepretation Comment:: 01/04/20 12:57 sinus at 67, l axis, q waves inferior leads, t wave inversion slateral leads v5- 6, i avl, ekg is unchanged from 09/01/19
[2020-01-04] MEDS ORDERED: FUROSEMIDE 40 MG/4 ML INJECTABLE VIAL ONE (13:28)
--- NOTE | 2020-01-04 16:29 | HP ---
Admitting History and Physical - Primary Care Physician PCP: Jannette Robertson - Admission History of Present Illness: 59yo man with a PMH of HTN, HLD, CAD (s/p stent placement), CHF, CKD, DM, unknown pulm disease (sees pulmonology, on daily inhaler), venous stasis who presents with acute onset of shortness of breath overnight. He states that he had been feeling well but started to have difficulty breathing last night. He tried using his 's albuterol nebulizer with some improvement in his symptoms , but he continued to struggle to breath so came to the hospital. - Past Medical History Cardiovascular: Yes: CAD (s/p PCI of proximal RCA in 09/2005 with Palmaz TONYA stent at [facility]), Deep Vein Thrombosis (left leg), HTN, Hyperlipdemia Pulmonary: Yes: Sleep Apnea Gastrointestinal: Yes: GI Bleed (due to esophageal ulcers per 12/02/15 EGD) Renal/: Yes: Renal Inusuff, Hematuria Heme/Onc: Yes: Bleeding Disorder (hematuria) Infectious Disease: Yes: Tuberculosis Psych: Yes: Addictions Musculoskeletal: Yes: Chronic low back pain Rheumatology: Yes: Other (arthritis right shoulder) Endocrine: Yes: Diabetes Mellitus - Past Surgical History Past Surgical History: Yes: None, Arthrosocopy (SHOULDER), Colonoscopy, Laminectomy (partial laminectomey right L3-4, left 4-5 on 12/08/15), Upper Endoscopy - Smoking History Smoking history: Never smoked Have you smoked in the past 12 months: No Aproximately how many cigarettes per day: 0 If you are a former smoker, when did you quit?: "on and off" for many years - Alcohol/Substance Use Hx Alcohol Use: No History of Substance Use: reports: Cocaine, Marijuana Date of Last Use: 11/14/15 (uses "occasionally") - Social History ADL: Support Services Occupation: [employer] History of Recent Travel: No Home Medications - Allergies Allergies/Adverse Reactions: Allergies Allergy/AdvReac Type Severity Reaction Status Date / Time No Known Allergies Allergy Verified 11/16/19 08:44 - Home Medications Home Medications: Ambulatory Orders Atorvastatin Ca [Lipitor] 80 mg PO HS 06/08/18 Carvedilol [Coreg -] 25 mg PO BID 06/08/18 Glimepiride 4 mg PO DAILY 06/08/18 Umeclidinium [place] [Incruse Ellipta] 62.5 mcg IH DAILY 09/01/19 Apremilast [Otezla] See Taper PO DAILY 09/02/19 Gabapentin [Neurontin -] 100 mg PO TID #90 capsule 09/02/19 Aspirin [ASA -] 81 mg PO DAILY 01/04/20 Furosemide [Lasix -] 40 mg PO DAILY 01/04/20 Liraglutide [Victoza -] 1.8 mg SQ DAILY@0700 01/04/20 Amlodipine Besylate [Norvasc -] 10 mg PO DAILY #30 tablet 01/06/20 Furosemide [Lasix] 40 mg PO BID #60 tablet MDD 2 01/06/20 Nystatin Cream [Mycostatin Cream -] 1 applic TP Q6HPO #1 applic 01/06/20 Physical Examination Vital Signs: Vital Signs Temperature 99.7 F H 01/04/20 10:36 Pulse Rate 54 L 01/04/20 13:40 Respiratory Rate 20 01/04/20 13:40 Blood Pressure 105/60 01/04/20 13:40 O2 Sat by Pulse Oximetry (%) 97 01/04/20 13:40 Constitutional: Yes: No Distress HENT: Yes: Atraumatic Neck: Yes: Supple Cardiovascular: Yes: Regular Rate and Rhythm Respiratory: Yes: Rhonchi, Wheezes Gastrointestinal: Yes: Normal Bowel Sounds Extremities: Yes: WNL Edema: Yes Edema: LLE: 2+, RLE: 2+ Neurological: Yes: Alert, Oriented Labs: CBC, BMP 01/04/20 11:04 01/04/20 11:04 Imaging - Results X-ray: Report Reviewed Ultrasound: Report Reviewed Problem List - Problems (1) Hypoxia Assessment/Plan: prn oxygen duo nebs bipap prn Code(s): R09.02 - HYPOXEMIA (2) Pulmonary vascular congestion Assessment/Plan: iv lasix Code(s): R09.89 - OTH SYMPTOMS AND SIGNS INVOLVING THE CIRC AND RESP SYSTEMS (3) SOB (shortness of breath) Code(s): R06.02 - SHORTNESS OF BREATH (4) CAD S/P percutaneous coronary angioplasty Code(s): I25.10 - ATHSCL HEART DISEASE OF [place] CORONARY ARTERY W/O ANG PCTRS; Z98.61 - CORONARY ANGIOPLASTY STATUS (5) Diabetes mellitus Assessment/Plan: bgms on po meds Code(s): E11.9 - TYPE 2 DIABETES MELLITUS WITHOUT COMPLICATIONS (6) HLD (hyperlipidemia) Assessment/Plan: on meds Code(s): E78.5 - HYPERLIPIDEMIA, UNSPECIFIED (7) HTN (hypertension) Assessment/Plan: on meds monitor Code(s): I10 - ESSENTIAL (PRIMARY) HYPERTENSION (8) Aliza rash of groin Assessment/Plan: will start nystatin cream Code(s): B37.89 - OTHER SITES OF CANDIDIASIS Assessment/Plan Laboratory Tests 01/04/20 01/04/20 01/04/20 11:04 11:04 11:04 WBC RBC Hgb Hct MCV MCH MCHC RDW Plt Count MPV Absolute Neuts (auto) Neutrophils % Lymphocytes % Monocytes % Eosinophils % Basophils % Nucleated RBC % PT with INR 15.20 H INR 1.28 H PTT (Actin FS) 30.4 Anticoagulation Therapy No Result Required. Puncture Site Left radial ABG pH 7.37 ABG pCO2 at Pt Temp 56.7 H ABG pO2 at Pt Temp 79.8 L ABG HCO3 31.7 H ABG O2 Sat (Measured) 95.1 ABG O2 Content 13.4 ABG Base Excess 5.7 H Farhad Test Positive VBG pH POC VBG pCO2 POC VBG pO2 VBG HCO3 VBG O2 Sat (Marion) VBG Base Excess Carboxyhemoglobin 2.0 Methemoglobin 1.0 O2 Delivery Device No Result Required. Oxygen Flow Rate Yes Vent Mode No Result Required. Vent Rate No Result Required. Mechanical Rate No Result Required. Pressure Support Vent No Result Required. Sodium Potassium Chloride Carbon Dioxide Anion Gap BUN Creatinine Est GFR (CKD-EPI)AfAm Est GFR (CKD-EPI)NonAf Random Glucose Lactic Acid Calcium Magnesium Total Bilirubin AST ALT Alkaline Phosphatase Creatine Kinase Troponin I B-Natriuretic Peptide Total Protein Albumin TSH Influenza A (Rapid) Influenza B (Rapid) 01/04/20 01/04/20 01/04/20 11:04 11:04 11:04 WBC 9.0 RBC 4.61 Hgb 10.7 L Hct 35.4 MCV 76.6 L MCH 23.2 L D MCHC 30.2 L RDW 17.6 H Plt Count 199 MPV 8.3 Absolute Neuts (auto) 7.2 Neutrophils % 80.5 Lymphocytes % 7.3 L D Monocytes % 8.0 Eosinophils % 3.2 Basophils % 1.0 Nucleated RBC % 0 PT with INR INR PTT (Actin FS) Anticoagulation Therapy Puncture Site ABG pH ABG pCO2 at Pt Temp ABG pO2 at Pt Temp ABG HCO3 ABG O2 Sat (Measured) ABG O2 Content ABG Base Excess Farhad Test VBG pH POC VBG pCO2 POC VBG pO2 VBG HCO3 VBG O2 Sat (Marion) VBG Base Excess Carboxyhemoglobin Methemoglobin O2 Delivery Device Oxygen Flow Rate Vent Mode Vent Rate Mechanical Rate Pressure Support Vent Sodium 142 Potassium 4.2 Chloride 104 Carbon Dioxide 32 Anion Gap 6 L BUN 39.7 H Creatinine 2.8 H Est GFR (CKD-EPI)AfAm 27.18 Est GFR (CKD-EPI)NonAf 23.46 Random Glucose 277 H Lactic Acid 1.4 Calcium 8.2 L Magnesium 2.5 H Total Bilirubin 0.4 AST 24 ALT 21 Alkaline Phosphatase 75 Creatine Kinase 68 Troponin I 0.02 B-Natriuretic Peptide Total Protein 7.7 Albumin 2.8 L TSH Influenza A (Rapid) Influenza B (Rapid) 01/04/20 01/04/20 01/04/20 11:04 11:04 11:04 WBC RBC Hgb Hct MCV MCH MCHC RDW Plt Count MPV Absolute Neuts (auto) Neutrophils % Lymphocytes % Monocytes % Eosinophils % Basophils % Nucleated RBC % PT with INR INR PTT (Actin FS) Anticoagulation Therapy Puncture Site ABG pH ABG pCO2 at Pt Temp ABG pO2 at Pt Temp ABG HCO3 ABG O2 Sat (Measured) ABG O2 Content ABG Base Excess Farhad Test VBG pH 7.37 POC VBG pCO2 55.3 H POC VBG pO2 < 49 H VBG HCO3 31.0 H VBG O2 Sat (Amrion) 76.9 VBG Base Excess 5.1 H Carboxyhemoglobin Methemoglobin O2 Delivery Device Oxygen Flow Rate Vent Mode Vent Rate Mechanical Rate Pressure Support Vent Sodium Potassium Chloride Carbon Dioxide Anion Gap BUN Creatinine Est GFR (CKD-EPI)AfAm Est GFR (CKD-EPI)NonAf Random Glucose Lactic Acid Calcium Magnesium Total Bilirubin AST ALT Alkaline Phosphatase Creatine Kinase Troponin I B-Natriuretic Peptide 4043.7 H Total Protein Albumin TSH 0.72 Influenza A (Rapid) Negative Influenza B (Rapid) Negative Active Medications Generic Name Dose Route Start Last Admin Trade Name Freq PRN Reason Stop Dose Admin Albuterol/Ipratropium 1 amp 01/04/20 16:51 Duoneb - NEB Q4H PRN SHORTNESS OF BREATH Amlodipine Besylate 10 mg 01/05/20 10:00 01/05/20 09:47 Norvasc - PO 10 mg DAILY PREM Administration Aspirin 81 mg 01/05/20 10:00 01/05/20 09:47 Asa - PO 81 mg DAILY PREM Administration Atorvastatin Calcium 80 mg 01/04/20 22:00 01/04/20 22:30 Lipitor - PO 80 mg HS PREM Administration Carvedilol 25 mg 01/04/20 22:00 01/05/20 09:47 Coreg - PO 25 mg BID PREM Administration Furosemide 40 mg 01/05/20 06:00 01/05/20 14:40 Lasix Injection - IVPUSH 40 mg BID@0600,1400 PREM Administration Gabapentin 100 mg 01/04/20 22:00 01/05/20 14:40 Neurontin - PO 100 mg TID PREM Administration Glimepiride 4 mg 01/05/20 07:00 01/05/20 06:56 Amaryl - PO 4 mg DAILY@0700 PREM Administration Heparin Sodium (Porcine) 5,000 unit 01/04/20 22:00 01/05/20 09:47 Heparin - SQ 5,000 unit BID PREM Administration Ceftriaxone Sodium 1 gm/ 50 mls @ 200 mls/hr 01/05/20 10:00 01/05/20 09:50 Dextrose IVPB 200 mls/hr DAILY PREM Administration Protocol Oxycodone HCl 5 mg 01/04/20 20:51 01/05/20 10:25 Roxicodone - PO 5 mg Q6H PRN Administration PAIN
[2020-01-04] MEDS ORDERED: ALBUTEROL SO4 2.5/IPRATROPIUM 0.5 INH SOL 3 ML VIAL.NEB. NEB PRN (16:51)
--- NOTE | 2020-01-04 17:21 | CON.ID ---
Consult Consult Specialty:: infectius diseases Referred by:: Reason for Consultation:: sob,r/o pneumonia - History of Present Illness Chief Complaint: sob History of Present Illness: 59yo man with a PMH of HTN, HLD, CAD (s/p stent placement), CHF, CKD, DM, unknown pulm disease (sees pulmonology, on daily inhaler), venous stasis who presents with acute onset of shortness of breath overnight. He states that he had been feeling well but started to have difficulty breathing last night. He tried using his 's albuterol nebulizer with some improvement in his symptoms , but he continued to struggle to breath so came to the hospital. - History Source History Provided By: Patient Limitations to Obtaining History: No Limitations - Past Medical History Cardio/Vascular: Yes: CAD (s/p PCI of proximal RCA in 09/2005 with Palmaz TONYA stent at [facility]), Deep Vein Thrombosis (left leg), HTN, Hyperlipdemia Pulmonary: Yes: Sleep Apnea Gastrointestinal: Yes: GI Bleed (due to esophageal ulcers per 12/02/15 EGD) Renal/: Yes: Renal Inusuff, Hematuria Infectious Disease: Yes: Tuberculosis Psych: Yes: Addictions Musculoskeletal: Yes: Chronic low back pain Rheumatology: Yes: Other (arthritis right shoulder) Endocrine: Yes: Diabetes Mellitus Additional Medical History: Vertebral osteomyelitis treated with IV antibiotics - Past Surgical History Past Surgical History: Yes: None, Arthrosocopy (SHOULDER), Colonoscopy, Laminectomy (partial laminectomey right L3-4, left 4-5 on 12/08/15), Upper Endoscopy - Alcohol/Substance Use Hx Alcohol Use: No History of Substance Use: reports: Cocaine, Marijuana Date of Last Use: 11/14/15 (uses "occasionally") - Smoking History Smoking history: Never smoked Have you smoked in the past 12 months: No Aproximately how many cigarettes per day: 0 If you are a former smoker, when did you quit?: "on and off" for many years - Social History Usual Living Arrangement: Intermediate ADL: Support Services Occupation: [employer] History of Recent Travel: No Home Medications - Allergies Allergies/Adverse Reactions: Allergies Allergy/AdvReac Type Severity Reaction Status Date / Time No Known Allergies Allergy Verified 11/16/19 08:44 - Home Medications Home Medications: Ambulatory Orders Atorvastatin Ca [Lipitor] 80 mg PO HS 06/08/18 Carvedilol [Coreg -] 25 mg PO BID 06/08/18 Glimepiride 4 mg PO DAILY 06/08/18 Hydralazine HCl 50 mg PO BID 09/01/19 Umeclidinium [place] [Incruse Ellipta] 62.5 mcg IH DAILY 09/01/19 Amlodipine Besylate [Norvasc -] 10 mg PO DAILY #30 tablet 09/02/19 Apremilast [Otezla] See Taper PO DAILY 09/02/19 Gabapentin [Neurontin -] 100 mg PO TID #90 capsule 09/02/19 Aspirin [ASA -] 81 mg PO DAILY 01/04/20 Furosemide [Lasix -] 40 mg PO DAILY 01/04/20 Liraglutide [Victoza -] 1.8 mg SQ DAILY@0700 01/04/20 Review of Systems - Review of Systems Constitutional: reports: No Symptoms Eyes: reports: No Symptoms HENT: reports: No Symptoms Neck: reports: No Symptoms Cardiovascular: reports: No Symptoms Respiratory: reports: SOB, SOB on Exertion Gastrointestinal: reports: No Symptoms Genitourinary: reports: No Symptoms Musculoskeletal: reports: No Symptoms Integumentary: reports: No Symptoms Neurological: reports: No Symptoms Endocrine: reports: No Symptoms Hematology/Lymphatic: reports: No Symptoms Psychiatric: reports: No Symptoms Physical Exam Vital Signs: Vital Signs Temperature 99.7 F H 01/04/20 10:36 Pulse Rate 54 L 01/04/20 13:40 Respiratory Rate 20 01/04/20 13:40 Blood Pressure 105/60 01/04/20 13:40 O2 Sat by Pulse Oximetry (%) 94 L 01/04/20 15:46 Constitutional: Yes: Well Nourished, Calm, Mild Distress Eyes: Yes: Conjunctiva Clear Neck: Yes: Supple, Trachea Midline Cardiovascular: Yes: Regular Rate and Rhythm Respiratory: Yes: On BiPap, Poor Air Entry Gastrointestinal: Yes: Normal Bowel Sounds, Soft Musculoskeletal: Yes: WNL Extremities: Yes: WNL Neurological: Yes: Alert, Oriented Psychiatric: Yes: Alert, Oriented Labs: CBC, BMP 01/04/20 11:04 01/04/20 11:04 Imaging - Results Chest X-ray: Report Reviewed, Image Reviewed Assessment/Plan Problem List - Problems (1) Hypoxia Code(s): R09.02 - HYPOXEMIA (2) Pulmonary vascular congestion Code(s): R09.89 - OTH SYMPTOMS AND SIGNS INVOLVING THE CIRC AND RESP SYSTEMS (3) SOB (shortness of breath) Code(s): R06.02 - SHORTNESS OF BREATH (4) Acute on chronic renal failure Code(s): N17.9 - ACUTE KIDNEY FAILURE, UNSPECIFIED; N18.9 - CHRONIC KIDNEY DISEASE, UNSPECIFIED (5) CAD S/P percutaneous coronary angioplasty Code(s): I25.10 - ATHSCL HEART DISEASE OF [place] CORONARY ARTERY W/O ANG PCTRS; Z98.61 - CORONARY ANGIOPLASTY STATUS (6) CKD (chronic kidney disease) Code(s): N18.9 - CHRONIC KIDNEY DISEASE, UNSPECIFIED (7) Diabetes mellitus Code(s): E11.9 - TYPE 2 DIABETES MELLITUS WITHOUT COMPLICATIONS (8) HLD (hyperlipidemia) Code(s): E78.5 - HYPERLIPIDEMIA, UNSPECIFIED (9) HTN (hypertension) Code(s): I10 - ESSENTIAL (PRIMARY) HYPERTENSION (10) Sleep apnea Code(s): G47.30 - SLEEP APNEA, UNSPECIFIED plan will start on empiric coverage if patient remains s table will stop abx resp support rest as per the team
[2020-01-04 18:19] VITALS: BMI 44.9
[2020-01-04] MEDS: ATORVASTATIN CA 80 MG TABLET (FP) PO SCH (22:30)
[2020-01-04] MEDS: oxyCODONE HCL 5 MG TABLET PO PRN (22:30)
[2020-01-04] MEDS: HEPARIN NA (PORCINE) 5,000 UNITS/ML 1ML VIAL SQ SCH (22:30)
[2020-01-04] MEDS: GABAPENTIN 100 MG CAPSULE PO SCH (22:30)
[2020-01-04] MEDS: CARVEDILOL 25 MG TABLET (FP) PO SCH (22:30)
[2020-01-05 06:44] LABS: BASO % 0.8 % (0-2.0); EOS % 8.6 % (0-4.5); HEMATOCRIT 33.4 % (35.4-49); HEMOGLOBIN 10.1 GM/dL (11.7-16.9); LYMPH % 8.9 % (8-40); MCH 23.3 pg (25.7-33.7); MCHC 30.3 g/dl (32.0-35.9); MEAN PLT VOLUME 8.2 fl (7.5-11.1); MONO % 9.9 % (3.8-10.2); NEUT % 71.8 % (42.8-82.8); PLATELET COUNT 174 K/MM3 (134-434); RBC 4.34 M/mm3 (4.00-5.60); RDW 17.7 % (11.9-15.9); WHITE BLOOD COUNT 8.2 K/mm3 (4.0-10.0)
[2020-01-05] MEDS: FUROSEMIDE 40 MG/4 ML INJECTABLE VIAL IVPUSH SCH ×2 (06:56→14:40)
[2020-01-05] MEDS: GABAPENTIN 100 MG CAPSULE PO SCH ×3 (06:56→22:07)
[2020-01-05] MEDS: GLIMEPIRIDE 4 MG TABLET PO SCH (06:56)
[2020-01-05] MEDS ORDERED: GLIMEPIRIDE 2 MG TABLET PO SCH (07:00)
[2020-01-05 07:14] LABS: ALBUMIN 2.7 g/dl (3.4-5.0); BILIRUBIN,TOTAL 0.8 mg/dL (0.2-1); BLOOD UREA NITROGEN 43.3 mg/dL (7-18); CALCIUM 7.9 mg/dL (8.5-10.1); CREATININE 2.9 mg/dL (0.55-1.3); POTASSIUM 4.3 mmol/L (3.5-5.1); TOT PROT 7.2 g/dl (6.4-8.2)
[2020-01-05] MEDS ORDERED: cefTRIAXone SODIUM 1 GM VIAL ONE (09:15)
[2020-01-05] MEDS ORDERED: DEXTROSE 5%-WATER - 50 ML IVPB ONE (09:16)
[2020-01-05] MEDS: amLODIPine BESYLATE 10 MG TABLET (FP) PO SCH (09:47)
[2020-01-05] MEDS: CARVEDILOL 25 MG TABLET (FP) PO SCH ×2 (09:47→22:07)
[2020-01-05] MEDS: HEPARIN NA (PORCINE) 5,000 UNITS/ML 1ML VIAL SQ SCH ×2 (09:47→22:11)
[2020-01-05] MEDS: ASPIRIN 81 MG CHEWABLE TABLETS PO SCH (09:47)
[2020-01-05] MEDS: CEFTRIAXONE 1 GM in DEXTROSE 5%-WATER - 50 ML IVPB SCH (09:50)
[2020-01-05] MEDS: oxyCODONE HCL 5 MG TABLET PO PRN ×2 (10:25→22:07)
--- NOTE | 2020-01-05 10:32 | CON.CARD ---
Consult Consult Specialty:: Cardiology Referred by:: Dr. Robertson Reason for Consultation:: Cardiac evaluation - History of Present Illness Chief Complaint: Shortness of breath History of Present Illness: Patient is a 59 year old male with underlying history of CAD s/p PCI/stent, HTN , hypercholesterolemia, DM, PRITI, venous stasis and history of psoriasis who presented to ED with shortness of breath and cough. He is followed by MDs at [facility]. He had used his 's nebulizer without much improvement prompting him to come into the hospital. Currently, he denies chest pain or palpitations. He still complains of shortness of breath especially on exertion. He denies paroxysmal nocturnal dyspnea or orthopnea. He denies fever or chills. He denies nausea, vomiting, diarrhea or abdominal pain. He denies headache or lightheadedness. Database Administration Manager: Dr. Deonte Guerra at [facility] - History Source History Provided By: Patient, Medical Record Limitations to Obtaining History: No Limitations - Past Medical History Cardio/Vascular: Yes: CAD (s/p PCI of proximal RCA in 09/2005 with Palmaz TONYA stent at [facility]), Deep Vein Thrombosis (left leg), HTN, Hyperlipdemia Pulmonary: Yes: Sleep Apnea Gastrointestinal: Yes: GI Bleed (due to esophageal ulcers per 12/02/15 EGD) Renal/: Yes: Renal Inusuff, Hematuria Infectious Disease: Yes: Tuberculosis Psych: Yes: Addictions Musculoskeletal: Yes: Chronic low back pain Rheumatology: Yes: Other (arthritis right shoulder) Endocrine: Yes: Diabetes Mellitus Additional Medical History: Vertebral osteomyelitis treated with IV antibiotics - Past Surgical History Past Surgical History: Yes: None, Arthrosocopy (SHOULDER), Colonoscopy, Laminectomy (partial laminectomey right L3-4, left 4-5 on 12/08/15), Upper Endoscopy - Alcohol/Substance Use Hx Alcohol Use: No History of Substance Use: reports: Cocaine, Marijuana Date of Last Use: 11/14/15 (uses "occasionally") - Smoking History Smoking history: Never smoked Have you smoked in the past 12 months: No Aproximately how many cigarettes per day: 0 If you are a former smoker, when did you quit?: "on and off" for many years - Social History Usual Living Arrangement: Shelter ADL: Support Services Occupation: [employer] History of Recent Travel: No Home Medications - Allergies Allergies/Adverse Reactions: Allergies Allergy/AdvReac Type Severity Reaction Status Date / Time No Known Allergies Allergy Verified 11/16/19 08:44 - Home Medications Home Medications: Ambulatory Orders Atorvastatin Ca [Lipitor] 80 mg PO HS 06/08/18 Carvedilol [Coreg -] 25 mg PO BID 06/08/18 Glimepiride 4 mg PO DAILY 06/08/18 Hydralazine HCl 50 mg PO BID 09/01/19 Umeclidinium [place] [Incruse Ellipta] 62.5 mcg IH DAILY 09/01/19 Amlodipine Besylate [Norvasc -] 10 mg PO DAILY #30 tablet 09/02/19 Apremilast [Otezla] See Taper PO DAILY 09/02/19 Gabapentin [Neurontin -] 100 mg PO TID #90 capsule 09/02/19 Aspirin [ASA -] 81 mg PO DAILY 01/04/20 Furosemide [Lasix -] 40 mg PO DAILY 01/04/20 Liraglutide [Victoza -] 1.8 mg SQ DAILY@0700 01/04/20 Family Medical History Other Family History: Bronchial asthma Review of Systems - Review of Systems Constitutional: denies: Chills, Fever Cardiovascular: reports: Shortness of Breath. denies: Chest Pain, Palpitations Respiratory: reports: Cough, SOB, SOB on Exertion. denies: Hemoptysis, Orthopnea, PND Gastrointestinal: denies: Abdominal Pain, Constipation, Diarrhea, Melena, Nausea , Rectal Bleeding, Vomiting Musculoskeletal: denies: Back Pain, Joint Pain Neurological: denies: Dizziness, Headache, Seizure, Syncope Vital Signs: Vital Signs Temperature 99.5 F 01/05/20 06:00 Pulse Rate 64 01/05/20 09:09 Respiratory Rate 20 01/05/20 09:09 Blood Pressure 130/77 01/05/20 09:09 O2 Sat by Pulse Oximetry (%) 91 L 01/04/20 21:09 Eyes: Yes: PERRL HENT: Yes: Atraumatic Neck: Yes: Supple Respiratory: Yes: Diminished Gastrointestinal: Yes: Normal Bowel Sounds, Soft. No: Tenderness Cardiovascular: Yes: Regular Rate and Rhythm JVD: No PMI: Non-Displaced Heart Sounds: Yes: S1, S2. No: Gallop Murmur: Yes: Systolic Murmur, Grade 1 Edema: Yes Integumentary: Yes: Venous Stasis Changes - Other Data Labs, Other Data: CBC, BMP 01/05/20 05:20 01/05/20 05:20 INR, PTT INR 1.28 (0.83-1.09) H 01/04/20 11:04 Troponin, BNP 01/04/20 01/04/20 01/04/20 11:04 11:04 17:25 Troponin I 0.02 0.02 B-Natriuretic Peptide 4043.7 H Laboratory Results - last 24 hr 01/04/20 01/04/20 01/04/20 11:04 11:04 11:04 WBC RBC Hgb Hct MCV MCH MCHC RDW Plt Count MPV Absolute Neuts (auto) Neutrophils % Lymphocytes % Monocytes % Eosinophils % Basophils % Nucleated RBC % PT with INR 15.20 H INR 1.28 H PTT (Actin FS) 30.4 Anticoagulation Therapy No Result Required. Puncture Site Left radial ABG pH 7.37 ABG pCO2 at Pt Temp 56.7 H ABG pO2 at Pt Temp 79.8 L ABG HCO3 31.7 H ABG O2 Sat (Measured) 95.1 ABG O2 Content 13.4 ABG Base Excess 5.7 H Farhad Test Positive VBG pH POC VBG pCO2 POC VBG pO2 VBG HCO3 VBG O2 Sat ([place]) VBG Base Excess Carboxyhemoglobin 2.0 Methemoglobin 1.0 O2 Delivery Device No Result Required. Oxygen Flow Rate Yes Vent Mode No Result Required. Vent Rate No Result Required. Mechanical Rate No Result Required. Pressure Support Vent No Result Required. Sodium Potassium Chloride Carbon Dioxide Anion Gap BUN Creatinine Est GFR (CKD-EPI)AfAm Est GFR (CKD-EPI)NonAf POC Glucometer Random Glucose Lactic Acid Calcium Magnesium Total Bilirubin AST ALT Alkaline Phosphatase Creatine Kinase Troponin I B-Natriuretic Peptide Total Protein Albumin TSH Influenza A (Rapid) Influenza B (Rapid) 01/04/20 01/04/20 01/04/20 11:04 11:04 11:04 WBC 9.0 RBC 4.61 Hgb 10.7 L Hct 35.4 MCV 76.6 L MCH 23.2 L D MCHC 30.2 L RDW 17.6 H Plt Count 199 MPV 8.3 Absolute Neuts (auto) 7.2 Neutrophils % 80.5 Lymphocytes % 7.3 L D Monocytes % 8.0 Eosinophils % 3.2 Basophils % 1.0 Nucleated RBC % 0 PT with INR INR PTT (Actin FS) Anticoagulation Therapy Puncture Site ABG pH ABG pCO2 at Pt Temp ABG pO2 at Pt Temp ABG HCO3 ABG O2 Sat (Measured) ABG O2 Content ABG Base Excess Farhad Test VBG pH POC VBG pCO2 POC VBG pO2 VBG HCO3 VBG O2 Sat ([place]) VBG Base Excess Carboxyhemoglobin Methemoglobin O2 Delivery Device Oxygen Flow Rate Vent Mode Vent Rate Mechanical Rate Pressure Support Vent Sodium 142 Potassium 4.2 Chloride 104 Carbon Dioxide 32 Anion Gap 6 L BUN 39.7 H Creatinine 2.8 H Est GFR (CKD-EPI)AfAm 27.18 Est GFR (CKD-EPI)NonAf 23.46 POC Glucometer Random Glucose 277 H Lactic Acid 1.4 Calcium 8.2 L Magnesium 2.5 H Total Bilirubin 0.4 AST 24 ALT 21 Alkaline Phosphatase 75 Creatine Kinase 68 Troponin I 0.02 B-Natriuretic Peptide Total Protein 7.7 Albumin 2.8 L TSH Influenza A (Rapid) Influenza B (Rapid) 01/04/20 01/04/20 01/04/20 11:04 11:04 11:04 WBC RBC Hgb Hct MCV MCH MCHC RDW Plt Count MPV Absolute Neuts (auto) Neutrophils % Lymphocytes % Monocytes % Eosinophils % Basophils % Nucleated RBC % PT with INR INR PTT (Actin FS) Anticoagulation Therapy Puncture Site ABG pH ABG pCO2 at Pt Temp ABG pO2 at Pt Temp ABG HCO3 ABG O2 Sat (Measured) ABG O2 Content ABG Base Excess Farhad Test VBG pH 7.37 POC VBG pCO2 55.3 H POC VBG pO2 < 49 H VBG HCO3 31.0 H VBG O2 Sat ([place]) 76.9 VBG Base Excess 5.1 H Carboxyhemoglobin Methemoglobin O2 Delivery Device Oxygen Flow Rate Vent Mode Vent Rate Mechanical Rate Pressure Support Vent Sodium Potassium Chloride Carbon Dioxide Anion Gap BUN Creatinine Est GFR (CKD-EPI)AfAm Est GFR (CKD-EPI)NonAf POC Glucometer Random Glucose Lactic Acid Calcium Magnesium Total Bilirubin AST ALT Alkaline Phosphatase Creatine Kinase Troponin I B-Natriuretic Peptide 4043.7 H Total Protein Albumin TSH 0.72 Influenza A (Rapid) Negative Influenza B (Rapid) Negative 01/04/20 01/04/20 01/05/20 17:19 17:25 05:20 WBC 8.2 RBC 4.34 Hgb 10.1 L Hct 33.4 L MCV 77.0 L MCH 23.3 L MCHC 30.3 L RDW 17.7 H Plt Count 174 MPV 8.2 Absolute Neuts (auto) 5.9 Neutrophils % 71.8 Lymphocytes % 8.9 D Monocytes % 9.9 Eosinophils % 8.6 H D Basophils % 0.8 Nucleated RBC % 0 PT with INR INR PTT (Actin FS) Anticoagulation Therapy Puncture Site ABG pH ABG pCO2 at Pt Temp ABG pO2 at Pt Temp ABG HCO3 ABG O2 Sat (Measured) ABG O2 Content ABG Base Excess Farhad Test VBG pH POC VBG pCO2 POC VBG pO2 VBG HCO3 VBG O2 Sat ([place]) VBG Base Excess Carboxyhemoglobin Methemoglobin O2 Delivery Device Oxygen Flow Rate Vent Mode Vent Rate Mechanical Rate Pressure Support Vent Sodium Potassium Chloride Carbon Dioxide Anion Gap BUN Creatinine Est GFR (CKD-EPI)AfAm Est GFR (CKD-EPI)NonAf POC Glucometer 94 Random Glucose Lactic Acid Calcium Magnesium Total Bilirubin AST ALT Alkaline Phosphatase Creatine Kinase 55 Troponin I 0.02 B-Natriuretic Peptide Total Protein Albumin TSH Influenza A (Rapid) Influenza B (Rapid) 01/05/20 01/05/20 05:20 06:55 WBC RBC Hgb Hct MCV MCH MCHC RDW Plt Count MPV Absolute Neuts (auto) Neutrophils % Lymphocytes % Monocytes % Eosinophils % Basophils % Nucleated RBC % PT with INR INR PTT (Actin FS) Anticoagulation Therapy Puncture Site ABG pH ABG pCO2 at Pt Temp ABG pO2 at Pt Temp ABG HCO3 ABG O2 Sat (Measured) ABG O2 Content ABG Base Excess Farhad Test VBG pH POC VBG pCO2 POC VBG pO2 VBG HCO3 VBG O2 Sat (Marion) VBG Base Excess Carboxyhemoglobin Methemoglobin O2 Delivery Device Oxygen Flow Rate Vent Mode Vent Rate Mechanical Rate Pressure Support Vent Sodium 141 Potassium 4.3 Chloride 104 Carbon Dioxide 32 Anion Gap 4 L BUN 43.3 H Creatinine 2.9 H Est GFR (CKD-EPI)AfAm 26.06 Est GFR (CKD-EPI)NonAf 22.48 POC Glucometer 172 Random Glucose 208 H Lactic Acid Calcium 7.9 L Magnesium Total Bilirubin 0.8 AST 17 ALT 20 Alkaline Phosphatase 77 Creatine Kinase Troponin I B-Natriuretic Peptide Total Protein 7.2 Albumin 2.7 L TSH Influenza A (Rapid) Influenza B (Rapid) Sinus rhythm with sinus arrhythmia, ST-T abnormality, lateral ischemia Imaging - Results Chest X-ray: Report Reviewed (Large heart, congestive changes) Ultrasound: Report Reviewed (No DVT) EKG: Report Reviewed Problem List - Problems (1) Hypoxia Code(s): R09.02 - HYPOXEMIA (2) Pulmonary vascular congestion Code(s): R09.89 - OTH SYMPTOMS AND SIGNS INVOLVING THE CIRC AND RESP SYSTEMS (3) SOB (shortness of breath) Code(s): R06.02 - SHORTNESS OF BREATH (4) Acute on chronic renal failure Code(s): N17.9 - ACUTE KIDNEY FAILURE, UNSPECIFIED; N18.9 - CHRONIC KIDNEY DISEASE, UNSPECIFIED (5) CAD S/P percutaneous coronary angioplasty Code(s): I25.10 - ATHSCL HEART DISEASE OF [place] CORONARY ARTERY W/O ANG PCTRS; Z98.61 - CORONARY ANGIOPLASTY STATUS (6) CKD (chronic kidney disease) Code(s): N18.9 - CHRONIC KIDNEY DISEASE, UNSPECIFIED (7) Diabetes mellitus Code(s): E11.9 - TYPE 2 DIABETES MELLITUS WITHOUT COMPLICATIONS (8) HLD (hyperlipidemia) Code(s): E78.5 - HYPERLIPIDEMIA, UNSPECIFIED (9) HTN (hypertension) Code(s): I10 - ESSENTIAL (PRIMARY) HYPERTENSION (10) Sleep apnea Code(s): G47.30 - SLEEP APNEA, UNSPECIFIED Assessment/Plan 1. Acute on chronic LV failure probably with underlying diastolic dysfunction 2. Pulmonary vascular congestion 3. CAD s/p PCI/stent, angina 4. HTN 5. Hypercholesterolemia 6. DM 7. PRITI 8. CKD PLAN: 1. Troponins negative 2. Carvedilol 25 mg BID and Amlodipine 10 mg QD as tolerated 3. ASA 81 mg QD 4. Atorvastatin 80 mg QHS 5. IV Furosemide 40 mg BID and monitor renal function and electrolytes 6. Empiric antibiotic coverage 7. Echocardiography to assess LV/RV and valvular function 8. CPAP for PRITI Follow up with Dr. Guerra at [facility] upon discharge from hospital Chino Romero MD
--- NOTE | 2020-01-05 14:48 | ECHO ---
Name: RADHA FIELDS Exam:Adult Echocardiogram Study Date: 01/05/2020 01:33 PM Age: 59 yrs Height: 67 in Weight: 287 lb BSA: 2.4 m2 MMode/2D Measurements & Calculations IVSd: 1.1 cm Ao root diam: 3.9 cm LVIDd: 7.0 cm LA dimension: 4.3 cm LVIDs: 4.9 cm ACS: 2.3 cm LVPWd: 1.1 cm IVSs: 1.5 cm LVPWs: 1.3 cm EDV(Teich): 256.1 ml ESV(Teich): 115.0 ml LVOT diam: 2.1 cm RV S Sarmad: 18.5 cm/sec Doppler Measurements & Calculations MV E max sarmad: 102.5 cm/sec Ao V2 max: 147.7 cm/sec MV A max sarmad: 42.8 cm/sec Ao max P.7 mmHg MV E/A: 2.4 Ao V2 mean: 107.0 cm/sec MV dec time: 0.14 sec Ao mean P.1 mmHg Ao V2 VTI: 32.4 cm ESTIVEN(I,D): 2.2 cm2 ESTIVEN(V,D): 2.3 cm2 LV V1 max P.8 mmHg MR max sarmad: 407.8 cm/sec LV V1 mean P.1 mmHg MR max P.6 mmHg LV V1 max: 97.6 cm/sec LV V1 mean: 68.0 cm/sec LV V1 VTI: 21.1 cm SV(LVOT): 72.2 ml TR max sarmad: 242.3 cm/sec TR max P.3 mmHg PA V2 max: 69.6 cm/sec PI end-d sarmad: 95.0 cm/sec PA max P.0 mmHg Med Peak E' Sarmad: 6.8 cm/sec Med E/e': 15.2 Lat Peak E' Sarmad: 17.2 cm/sec Lat E/e': 6.0 Procedure A complete two-dimensional transthoracic echocardiogram was performed (2D, M-mode, Doppler and color flow Doppler). Left Ventricle The left ventricle is severely dilated. Left ventricular systolic function is borderline reduced. Eje ction Fraction = 50%. A full diastolic examination was done with clinical findings of Class IV diastolic dysfunction. The left ventricular wall motion is normal. Right Ventricle The right ventricle is normal in size and function. Atria The left atrium is mildly dilated. Right atrial size is normal. Mitral Valve There is moderate mitral valve thickening. There is mild to moderate mitral annular calcification. Th ere is trace mitral regurgitation. Tricuspid Valve The tricuspid valve is normal in structure and function. There is trace tricuspid regurgitation. Righ t ventricular systolic pressure is 31 mmhg. Assuming the RA pressure is 5 mmHg. Aortic Valve There is mild aortic valve thickening. Trace aortic regurgitation. Pulmonic Valve The pulmonic valve is not well visualized. Great Vessels Mild aortic root dilatation. Pericardium/Pleura There is no pericardial effusion. There is no pleural effusion. Interpretation Summary The left ventricle is severely dilated. Left ventricular systolic function is borderline reduced. Ejection Fraction = 50%. The left ventricular wall motion is normal. The right ventricle is normal in size and function. The left atrium is mildly dilated. There is moderate mitral valve thickening. There is mild to moderate mitral annular calcification. There is trace mitral regurgitation. There is trace tricuspid regurgitation. Right ventricular systolic pressure is 31 mmhg. Assuming the RA pressure is 5 mmHg There is mild aortic valve thickening. Trace aortic regurgitation. MD Yariel Peterson 01/05/2020 02:47 PM
--- NOTE | 2020-01-05 15:39 | CON.PULM ---
Consult Consult Specialty:: PULM/CCM Referred by:: CROW Reason for Consultation:: SOB - History of Present Illness Chief Complaint: SOB History of Present Illness: 59 M, CAD s/p PCI, HTN, hypercholesterolemia, DM, possible COPD due to smoking history, PRITI on CPAP (patient is not sure of severity and compliance with CPAP usage is variable due to apparent mask issues), venous stasis, and psoriasis. He was admitted via the ER due to who presented to ED with shortness of breath and cough. He reports using his 's nebulizer which did not provide relief so decided to come to the hospital. No travel history or sick contacts. No hemoptysis or night sweats. CXR: Pulmonary vascular congestion. - History Source History Provided By: Patient Limitations to Obtaining History: No Limitations - Past Medical History Cardio/Vascular: Yes: CAD (s/p PCI of proximal RCA in 09/2005 with Palmaz TONYA stent at [facility]), Deep Vein Thrombosis (left leg), HTN, Hyperlipdemia Pulmonary: Yes: Bronchitis, Pneumonia, Sleep Apnea. No: Asthma, Cancer, COPD, O2 Dependent, Previously Intubated, Pulmonary Embolus, Pulmonary Fibrosis Gastrointestinal: Yes: GI Bleed (due to esophageal ulcers per 12/02/15 EGD) Renal/: Yes: Renal Inusuff, Hematuria Infectious Disease: Yes: Tuberculosis Psych: Yes: Addictions Musculoskeletal: Yes: Chronic low back pain Rheumatology: Yes: Other (arthritis right shoulder) Endocrine: Yes: Diabetes Mellitus Additional Medical History: Vertebral osteomyelitis treated with IV antibiotics - Past Surgical History Past Surgical History: Yes: None, Arthrosocopy (SHOULDER), Colonoscopy, Laminectomy (partial laminectomey right L3-4, left 4-5 on 12/08/15), Upper Endoscopy - Alcohol/Substance Use Hx Alcohol Use: No History of Substance Use: reports: Cocaine, Marijuana Date of Last Use: 11/14/15 (uses "occasionally") - Smoking History Smoking history: Never smoked Have you smoked in the past 12 months: No Aproximately how many cigarettes per day: 0 If you are a former smoker, when did you quit?: "on and off" for many years - Social History Usual Living Arrangement: Group Home ADL: Support Services Occupation: [employer] History of Recent Travel: No Home Medications - Allergies Allergies/Adverse Reactions: Allergies Allergy/AdvReac Type Severity Reaction Status Date / Time No Known Allergies Allergy Verified 11/16/19 08:44 - Home Medications Home Medications: Ambulatory Orders Atorvastatin Ca [Lipitor] 80 mg PO HS 06/08/18 Carvedilol [Coreg -] 25 mg PO BID 06/08/18 Glimepiride 4 mg PO DAILY 06/08/18 Hydralazine HCl 50 mg PO BID 09/01/19 Umeclidinium [place] [Incruse Ellipta] 62.5 mcg IH DAILY 09/01/19 Amlodipine Besylate [Norvasc -] 10 mg PO DAILY #30 tablet 09/02/19 Apremilast [Otezla] See Taper PO DAILY 09/02/19 Gabapentin [Neurontin -] 100 mg PO TID #90 capsule 09/02/19 Aspirin [ASA -] 81 mg PO DAILY 01/04/20 Furosemide [Lasix -] 40 mg PO DAILY 01/04/20 Liraglutide [Victoza -] 1.8 mg SQ DAILY@0700 01/04/20 Review of Systems - Review of Systems Constitutional: reports: Malaise. denies: Chills, Fever, Unintentional Wgt. Loss Eyes: reports: No Symptoms HENT: reports: No Symptoms Neck: reports: No Symptoms Cardiovascular: reports: Shortness of Breath. denies: Chest Pain, Edema, Palpitations Respiratory: reports: Cough, Orthopnea, Snoring, SOB, SOB on Exertion. denies: Wheezing Gastrointestinal: reports: No Symptoms Genitourinary: reports: No Symptoms Breasts: reports: No Symptoms Reported Musculoskeletal: reports: No Symptoms Integumentary: reports: No Symptoms Neurological: reports: No Symptoms Endocrine: reports: No Symptoms Hematology/Lymphatic: reports: No Symptoms Psychiatric: reports: No Symptoms Physical Exam Vital Sings: Vital Signs Temperature 99.5 F 01/05/20 06:00 Pulse Rate 64 01/05/20 09:09 Respiratory Rate 20 01/05/20 09:09 Blood Pressure 130/77 01/05/20 09:09 O2 Sat by Pulse Oximetry (%) 93 L 01/05/20 10:33 Constitutional: Yes: No Distress, Obese Eyes: Yes: Conjunctiva Clear, EOM Intact HENT: Yes: Atraumatic, Normocephalic Neck: Yes: Supple, Trachea Midline Cardiovascular: Yes: Regular Rate and Rhythm Respiratory: Yes: Cough, On Nasal O2, Rhonchi, SOB, SOB on Exertion. No: Accessory Muscle Use, Rales, Stridor, Tachypnea, Wheezes ...Inspection: Yes: WNL ...Clubbing: No Gastrointestinal: Yes: Normal Bowel Sounds, Soft, Abdomen, Obese Renal/: Yes: WNL Musculoskeletal: Yes: WNL Extremities: Yes: WNL Edema: Yes Peripheral Pulses WNL: Yes Integumentary: Yes: WNL Neurological: Yes: WNL, Alert, Oriented ...Motor Strength: WNL Psychiatric: Yes: WNL, Alert, Oriented Labs: CBC, BMP 01/05/20 05:20 01/05/20 05:20 ABG Results ABG pH 7.37 (7.35-7.45) 01/04/20 11:04 ABG pCO2 at Pt Temp 56.7 mmHg (35-45) H 01/04/20 11:04 ABG pO2 at Pt Temp 79.8 mmHg (80-100) L 01/04/20 11:04 ABG HCO3 31.7 mmol/L (22-27) H 01/04/20 11:04 ABG O2 Sat (Measured) 95.1 % (95-98) 01/04/20 11:04 ABG O2 Content 13.4 % vol 01/04/20 11:04 ABG Base Excess 5.7 meq/l (-2-2) H 01/04/20 11:04 Imaging - Results Chest X-ray: Report Reviewed, Image Reviewed Problem List - Problems (1) Pulmonary vascular congestion Code(s): R09.89 - OTH SYMPTOMS AND SIGNS INVOLVING THE CIRC AND RESP SYSTEMS (2) SOB (shortness of breath) Code(s): R06.02 - SHORTNESS OF BREATH (3) Back pain Code(s): M54.9 - DORSALGIA, UNSPECIFIED Qualifiers: Back pain location: back pain in unspecified location Chronicity: acute Back pain laterality: unspecified Qualified Code(s): M54.9 - Dorsalgia, unspecified (4) CAD S/P percutaneous coronary angioplasty Code(s): I25.10 - ATHSCL HEART DISEASE OF [place] CORONARY ARTERY W/O ANG PCTRS; Z98.61 - CORONARY ANGIOPLASTY STATUS (5) CKD (chronic kidney disease) Code(s): N18.9 - CHRONIC KIDNEY DISEASE, UNSPECIFIED (6) Diabetes mellitus Code(s): E11.9 - TYPE 2 DIABETES MELLITUS WITHOUT COMPLICATIONS (7) HLD (hyperlipidemia) Code(s): E78.5 - HYPERLIPIDEMIA, UNSPECIFIED (8) HTN (hypertension) Code(s): I10 - ESSENTIAL (PRIMARY) HYPERTENSION (9) Sleep apnea Code(s): G47.30 - SLEEP APNEA, UNSPECIFIED (10) Venous stasis Code(s): I87.8 - OTHER SPECIFIED DISORDERS OF VEINS Assessment/Plan Lasix IVP BID Supplemental O2 as needed NIPPV support QHS and PRN Daily weights No smoking discussed VTE prophylaxis Will help arrange for a proper CPAP mask after discharge Noted ABX per ID (Do not suspect respiratory tract infection) Will follow Thank you. Dr Richards
--- NOTE | 2020-01-05 18:35 | PN ---
Progress Note, Physician - Current Medication List Current Medications: Active Medications Albuterol/Ipratropium (Duoneb -) 1 amp NEB Q4H PRN PRN Reason: SHORTNESS OF BREATH Amlodipine Besylate (Norvasc -) 10 mg PO DAILY [facility] Last Admin: 01/05/20 09:47 Dose: 10 mg Aspirin (Asa -) 81 mg PO DAILY [facility] Last Admin: 01/05/20 09:47 Dose: 81 mg Atorvastatin Calcium (Lipitor -) 80 mg PO HS [facility] Last Admin: 01/04/20 22:30 Dose: 80 mg Carvedilol (Coreg -) 25 mg PO BID [facility] Last Admin: 01/05/20 09:47 Dose: 25 mg Furosemide (Lasix Injection -) 40 mg IVPUSH BID@0600,1400 [facility] Last Admin: 01/05/20 14:40 Dose: 40 mg Gabapentin (Neurontin -) 100 mg PO TID [facility] Last Admin: 01/05/20 14:40 Dose: 100 mg Glimepiride (Amaryl -) 4 mg PO DAILY@0700 [facility] Last Admin: 01/05/20 06:56 Dose: 4 mg Heparin Sodium (Porcine) (Heparin -) 5,000 unit SQ BID [facility] Last Admin: 01/05/20 09:47 Dose: 5,000 unit Ceftriaxone Sodium 1 gm/ (Dextrose) 50 mls @ 200 mls/hr IVPB DAILY [facility]; Protocol Last Admin: 01/05/20 09:50 Dose: 200 mls/hr Oxycodone HCl (Roxicodone -) 5 mg PO Q6H PRN PRN Reason: PAIN Last Admin: 01/05/20 10:25 Dose: 5 mg - Objective Vital Signs: Vital Signs Temperature 98.1 F 01/05/20 15:00 Pulse Rate 61 01/05/20 15:00 Respiratory Rate 20 01/05/20 09:09 Blood Pressure 135/67 01/05/20 15:00 O2 Sat by Pulse Oximetry (%) 93 L 01/05/20 16:15 Constitutional: Yes: Calm HENT: Yes: Atraumatic Neck: Yes: Supple Cardiovascular: Yes: Regular Rate and Rhythm Respiratory: Yes: Rhonchi Gastrointestinal: Yes: Normal Bowel Sounds Extremities: Yes: WNL Edema: Yes Edema: LLE: 1+, RLE: 1+ Neurological: Yes: Alert, Oriented Labs: CBC, BMP 01/05/20 05:20 01/05/20 05:20 INR, PTT INR 1.28 (0.83-1.09) H 01/04/20 11:04 Problem List - Problems (1) Hypoxia Assessment/Plan: prn oxygen duo nebs Code(s): R09.02 - HYPOXEMIA (2) Pulmonary vascular congestion Assessment/Plan: iv lasix Code(s): R09.89 - OTH SYMPTOMS AND SIGNS INVOLVING THE CIRC AND RESP SYSTEMS (3) SOB (shortness of breath) Code(s): R06.02 - SHORTNESS OF BREATH (4) CAD S/P percutaneous coronary angioplasty Code(s): I25.10 - ATHSCL HEART DISEASE OF [place] CORONARY ARTERY W/O ANG PCTRS; Z98.61 - CORONARY ANGIOPLASTY STATUS (5) Diabetes mellitus Assessment/Plan: bgms on po meds Code(s): E11.9 - TYPE 2 DIABETES MELLITUS WITHOUT COMPLICATIONS (6) HLD (hyperlipidemia) Assessment/Plan: on meds Code(s): E78.5 - HYPERLIPIDEMIA, UNSPECIFIED (7) HTN (hypertension) Assessment/Plan: on meds monitor Code(s): I10 - ESSENTIAL (PRIMARY) HYPERTENSION
[2020-01-05] MEDS: ATORVASTATIN CA 80 MG TABLET (FP) PO SCH (22:07)
[2020-01-06] MEDS: NYSTATIN 100,000 UNIT/GM TOPICAL CREAM 15 GM TUBE TP SCH ×4 (01:32→17:45)
[2020-01-06] MEDS: FUROSEMIDE 40 MG/4 ML INJECTABLE VIAL IVPUSH SCH ×2 (06:22→14:03)
[2020-01-06] MEDS: GABAPENTIN 100 MG CAPSULE PO SCH ×3 (06:22→21:44)
[2020-01-06] MEDS: GLIMEPIRIDE 4 MG TABLET PO SCH (06:22)
[2020-01-06] MEDS ORDERED: DEXTROSE 5%-WATER - 50 ML IVPB ONE (09:02)
[2020-01-06] MEDS ORDERED: cefTRIAXone SODIUM 1 GM VIAL ONE (09:02)
--- NOTE | 2020-01-06 09:03 | PN ---
Progress Note (short form) - Note Progress Note: Breathing feels overall better. Less SOB. Did not use NIPPV overnight. Intake & Output 01/03/20 01/04/20 01/05/20 01/06/20 23:59 23:59 23:59 23:59 Intake Total 350 710 150 Output Total 800 600 Balance 350 -90 -450 Weight 287 lb Last Vital Signs Temp Pulse Resp BP Pulse Ox 97.6 F 56 L 20 160/75 93 L 01/06/20 05:00 01/06/20 05:00 01/06/20 05:00 01/06/20 05:00 01/05/20 23:16 Active Medications Albuterol/Ipratropium (Duoneb -) 1 amp NEB Q4H PRN PRN Reason: SHORTNESS OF BREATH Amlodipine Besylate (Norvasc -) 10 mg PO DAILY [facility] Last Admin: 01/05/20 09:47 Dose: 10 mg Aspirin (Asa -) 81 mg PO DAILY [facility] Last Admin: 01/05/20 09:47 Dose: 81 mg Atorvastatin Calcium (Lipitor -) 80 mg PO HS [facility] Last Admin: 01/05/20 22:07 Dose: 80 mg Carvedilol (Coreg -) 25 mg PO BID [facility] Last Admin: 01/05/20 22:07 Dose: 25 mg Furosemide (Lasix Injection -) 40 mg IVPUSH BID@0600,1400 [facility] Last Admin: 01/06/20 06:22 Dose: 40 mg Gabapentin (Neurontin -) 100 mg PO TID [facility] Last Admin: 01/06/20 06:22 Dose: 100 mg Glimepiride (Amaryl -) 4 mg PO DAILY@0700 [facility] Last Admin: 01/06/20 06:22 Dose: 4 mg Heparin Sodium (Porcine) (Heparin -) 5,000 unit SQ BID [facility] Last Admin: 01/05/20 22:11 Dose: 5,000 unit Ceftriaxone Sodium 1 gm/ (Dextrose) 50 mls @ 200 mls/hr IVPB DAILY [facility]; Protocol Last Admin: 01/05/20 09:50 Dose: 200 mls/hr Nystatin (Mycostatin Cream -) 1 applic TP Q6HPO [facility] Last Admin: 01/06/20 06:24 Dose: 1 applic Oxycodone HCl (Roxicodone -) 5 mg PO Q6H PRN PRN Reason: PAIN Last Admin: 01/05/20 22:07 Dose: 5 mg Constitutional: Yes: No Distress, Obese Eyes: Yes: Conjunctiva Clear, EOM Intact HENT: Yes: Atraumatic, Normocephalic Neck: Yes: Supple, Trachea Midline Cardiovascular: Yes: Regular Rate and Rhythm Respiratory: Yes: Cough, On Nasal O2, Rhonchi. No: Accessory Muscle Use, Rales , Stridor, Tachypnea, Wheezes ...Inspection: Yes: WNL ...Clubbing: No Gastrointestinal: Yes: Normal Bowel Sounds, Soft, Abdomen, Obese Renal/: Yes: WNL Musculoskeletal: Yes: WNL Extremities: Yes: WNL Edema: Yes Peripheral Pulses WNL: Yes Integumentary: Yes: WNL Neurological: Yes: WNL, Alert, Oriented ...Motor Strength: WNL Psychiatric: Yes: WNL, Alert, Oriented Labs: Laboratory Results - last 24 hr 01/05/20 01/05/20 01/05/20 11:41 17:13 17:45 POC Glucometer 188 277 Creatine Kinase 56 Troponin I < 0.02 01/06/20 06:20 POC Glucometer 155 Creatine Kinase Troponin I Problem List - Problems (1) Pulmonary vascular congestion Code(s): R09.89 - OTH SYMPTOMS AND SIGNS INVOLVING THE CIRC AND RESP SYSTEMS (2) SOB (shortness of breath) Code(s): R06.02 - SHORTNESS OF BREATH (3) Back pain Code(s): M54.9 - DORSALGIA, UNSPECIFIED Qualifiers: Back pain location: back pain in unspecified location Chronicity: acute Back pain laterality: unspecified Qualified Code(s): M54.9 - Dorsalgia, unspecified (4) CAD S/P percutaneous coronary angioplasty Code(s): I25.10 - ATHSCL HEART DISEASE OF [place] CORONARY ARTERY W/O ANG PCTRS; Z98.61 - CORONARY ANGIOPLASTY STATUS (5) CKD (chronic kidney disease) Code(s): N18.9 - CHRONIC KIDNEY DISEASE, UNSPECIFIED (6) Diabetes mellitus Code(s): E11.9 - TYPE 2 DIABETES MELLITUS WITHOUT COMPLICATIONS (7) HLD (hyperlipidemia) Code(s): E78.5 - HYPERLIPIDEMIA, UNSPECIFIED (8) HTN (hypertension) Code(s): I10 - ESSENTIAL (PRIMARY) HYPERTENSION (9) Sleep apnea Code(s): G47.30 - SLEEP APNEA, UNSPECIFIED (10) Venous stasis Code(s): I87.8 - OTHER SPECIFIED DISORDERS OF VEINS Assessment/Plan Lasix IVP BID Supplemental O2 as needed Advised NIPPV support QHS and PRN Daily weights No smoking discussed VTE prophylaxis Will help arrange for a proper CPAP mask after discharge Noted ABX per ID (Do not suspect respiratory tract infection) Dr Richards Problem List - Problems (1) Pulmonary vascular congestion Code(s): R09.89 - OTH SYMPTOMS AND SIGNS INVOLVING THE CIRC AND RESP SYSTEMS (2) SOB (shortness of breath) Code(s): R06.02 - SHORTNESS OF BREATH (3) Back pain Code(s): M54.9 - DORSALGIA, UNSPECIFIED Qualifiers: Back pain location: back pain in unspecified location Chronicity: acute Back pain laterality: unspecified Qualified Code(s): M54.9 - Dorsalgia, unspecified (4) CAD S/P percutaneous coronary angioplasty Code(s): I25.10 - ATHSCL HEART DISEASE OF [place] CORONARY ARTERY W/O ANG PCTRS; Z98.61 - CORONARY ANGIOPLASTY STATUS (5) CKD (chronic kidney disease) Code(s): N18.9 - CHRONIC KIDNEY DISEASE, UNSPECIFIED (6) Diabetes mellitus Code(s): E11.9 - TYPE 2 DIABETES MELLITUS WITHOUT COMPLICATIONS (7) HLD (hyperlipidemia) Code(s): E78.5 - HYPERLIPIDEMIA, UNSPECIFIED (8) HTN (hypertension) Code(s): I10 - ESSENTIAL (PRIMARY) HYPERTENSION (9) Sleep apnea Code(s): G47.30 - SLEEP APNEA, UNSPECIFIED (10) Venous stasis Code(s): I87.8 - OTHER SPECIFIED DISORDERS OF VEINS
[2020-01-06] MEDS: oxyCODONE HCL 5 MG TABLET PO PRN ×2 (09:10→21:43)
[2020-01-06] MEDS: CEFTRIAXONE 1 GM in DEXTROSE 5%-WATER - 50 ML IVPB SCH (09:15)
[2020-01-06] MEDS: amLODIPine BESYLATE 10 MG TABLET (FP) PO SCH (09:15)
[2020-01-06] MEDS: ASPIRIN 81 MG CHEWABLE TABLETS PO SCH (09:15)
[2020-01-06] MEDS: HEPARIN NA (PORCINE) 5,000 UNITS/ML 1ML VIAL SQ SCH ×2 (09:15→21:44)
[2020-01-06] MEDS: CARVEDILOL 25 MG TABLET (FP) PO SCH ×2 (09:15→21:44)
--- NOTE | 2020-01-06 11:35 | PN ---
Progress Note, Physician History of Present Illness: Dyspnea improving with diuresis, did not use NIPPV overnight. - Current Medication List Current Medications: Active Medications Albuterol/Ipratropium (Duoneb -) 1 amp NEB Q4H PRN PRN Reason: SHORTNESS OF BREATH Amlodipine Besylate (Norvasc -) 10 mg PO DAILY [facility] Last Admin: 01/06/20 09:15 Dose: 10 mg Aspirin (Asa -) 81 mg PO DAILY [facility] Last Admin: 01/06/20 09:15 Dose: 81 mg Atorvastatin Calcium (Lipitor -) 80 mg PO HS [facility] Last Admin: 01/05/20 22:07 Dose: 80 mg Carvedilol (Coreg -) 25 mg PO BID [facility] Last Admin: 01/06/20 09:15 Dose: 25 mg Furosemide (Lasix Injection -) 40 mg IVPUSH BID@0600,1400 [facility] Last Admin: 01/06/20 06:22 Dose: 40 mg Gabapentin (Neurontin -) 100 mg PO TID [facility] Last Admin: 01/06/20 06:22 Dose: 100 mg Glimepiride (Amaryl -) 4 mg PO DAILY@0700 [facility] Last Admin: 01/06/20 06:22 Dose: 4 mg Heparin Sodium (Porcine) (Heparin -) 5,000 unit SQ BID [facility] Last Admin: 01/06/20 09:15 Dose: 5,000 unit Ceftriaxone Sodium 1 gm/ (Dextrose) 50 mls @ 200 mls/hr IVPB DAILY [facility]; Protocol Last Admin: 01/06/20 09:15 Dose: 200 mls/hr Nystatin (Mycostatin Cream -) 1 applic TP Q6HPO [facility] Last Admin: 01/06/20 06:24 Dose: 1 applic Oxycodone HCl (Roxicodone -) 5 mg PO Q6H PRN PRN Reason: PAIN Last Admin: 01/06/20 09:10 Dose: 5 mg - Objective Vital Signs: Vital Signs Temperature 97.6 F 01/06/20 05:00 Pulse Rate 56 L 01/06/20 05:00 Respiratory Rate 20 01/06/20 05:00 Blood Pressure 160/75 01/06/20 05:00 O2 Sat by Pulse Oximetry (%) 92 L 01/06/20 07:30 Constitutional: Yes: No Distress, Calm Neck: Yes: Supple Cardiovascular: Yes: Regular Rate and Rhythm Respiratory: Yes: Regular, Diminished, On Nasal O2 Gastrointestinal: Yes: Normal Bowel Sounds, Soft Edema: Yes Edema: LLE: 1+, RLE: 1+ Integumentary: Yes: Venous Stasis Changes Labs: CBC, BMP 01/05/20 05:20 01/05/20 05:20 INR, PTT INR 1.28 (0.83-1.09) H 01/04/20 11:04 - ....Imaging EKG: Report Reviewed (Tele: NSR) Problem List - Problems (1) Acute on chronic diastolic (congestive) heart failure Code(s): I50.33 - ACUTE ON CHRONIC DIASTOLIC (CONGESTIVE) HEART FAILURE (2) Hypoxia Code(s): R09.02 - HYPOXEMIA (3) Pulmonary vascular congestion Code(s): R09.89 - OTH SYMPTOMS AND SIGNS INVOLVING THE CIRC AND RESP SYSTEMS (4) SOB (shortness of breath) Code(s): R06.02 - SHORTNESS OF BREATH (5) Acute on chronic renal failure Code(s): N17.9 - ACUTE KIDNEY FAILURE, UNSPECIFIED; N18.9 - CHRONIC KIDNEY DISEASE, UNSPECIFIED (6) CAD S/P percutaneous coronary angioplasty Code(s): I25.10 - ATHSCL HEART DISEASE OF [place] CORONARY ARTERY W/O ANG PCTRS; Z98.61 - CORONARY ANGIOPLASTY STATUS (7) HLD (hyperlipidemia) Code(s): E78.5 - HYPERLIPIDEMIA, UNSPECIFIED (8) HTN (hypertension) Code(s): I10 - ESSENTIAL (PRIMARY) HYPERTENSION Assessment/Plan 12/05/2019 Echo: severely dilated LV with borderline reduced LVEF 50%, normal RV size and fxn, mild LAE, tr MR, TR, AR, RVSP 31 mmHg 1. Acute on chronic LV diastolic failure 2. Pulmonary vascular congestion 3. CAD s/p PCI/stent, angina 4. HTN 5. Hypercholesterolemia 6. DM 7. PRITI 8. Acute on CKD PLAN: 1. IV Furosemide 40 mg BID and monitor diuretic response, renal function and electrolytes 2. Continue Carvedilol 25 mg BID, Amlodipine 10 mg QD, ASA 81 mg QD, Atorvastatin 80 mg QHS, holding ARB for now pending recovery of renal function to baseline 3. Observe off empiric antibiotic coverage 4. Reviewed echo results with patient 5. CPAP for PRITI, BD, Supplemental O2 as needed Follow up with Dr. Guerra at [facility] upon discharge from hospital
--- NOTE | 2020-01-06 12:24 | PN ---
Progress Note, Physician - Current Medication List Current Medications: Active Medications Albuterol/Ipratropium (Duoneb -) 1 amp NEB Q4H PRN PRN Reason: SHORTNESS OF BREATH Amlodipine Besylate (Norvasc -) 10 mg PO DAILY [facility] Last Admin: 01/06/20 09:15 Dose: 10 mg Aspirin (Asa -) 81 mg PO DAILY [facility] Last Admin: 01/06/20 09:15 Dose: 81 mg Atorvastatin Calcium (Lipitor -) 80 mg PO HS [facility] Last Admin: 01/05/20 22:07 Dose: 80 mg Carvedilol (Coreg -) 25 mg PO BID [facility] Last Admin: 01/06/20 09:15 Dose: 25 mg Furosemide (Lasix Injection -) 40 mg IVPUSH BID@0600,1400 [facility] Last Admin: 01/06/20 06:22 Dose: 40 mg Gabapentin (Neurontin -) 100 mg PO TID [facility] Last Admin: 01/06/20 06:22 Dose: 100 mg Glimepiride (Amaryl -) 4 mg PO DAILY@0700 [facility] Last Admin: 01/06/20 06:22 Dose: 4 mg Heparin Sodium (Porcine) (Heparin -) 5,000 unit SQ BID [facility] Last Admin: 01/06/20 09:15 Dose: 5,000 unit Nystatin (Mycostatin Cream -) 1 applic TP Q6HPO [facility] Last Admin: 01/06/20 12:20 Dose: 1 applic Oxycodone HCl (Roxicodone -) 5 mg PO Q6H PRN PRN Reason: PAIN Last Admin: 01/06/20 09:10 Dose: 5 mg - Objective Vital Signs: Vital Signs Temperature 98 F 01/06/20 09:00 Pulse Rate 64 01/06/20 09:00 Respiratory Rate 20 01/06/20 09:00 Blood Pressure 123/69 01/06/20 09:00 O2 Sat by Pulse Oximetry (%) 94 L 01/06/20 09:00 Constitutional: Yes: No Distress HENT: Yes: Atraumatic Neck: Yes: Supple Cardiovascular: Yes: Regular Rate and Rhythm Respiratory: Yes: CTA Bilaterally Gastrointestinal: Yes: Normal Bowel Sounds Extremities: Yes: WNL Edema: Yes Edema: LLE: 1+, RLE: 1+ Neurological: Yes: Alert, Oriented Labs: CBC, BMP 01/05/20 05:20 01/05/20 05:20 INR, PTT INR 1.28 (0.83-1.09) H 01/04/20 11:04 Problem List - Problems (1) Hypoxia Assessment/Plan: prn oxygen duo nebs bipap prn Code(s): R09.02 - HYPOXEMIA (2) Pulmonary vascular congestion Assessment/Plan: iv lasix Code(s): R09.89 - OTH SYMPTOMS AND SIGNS INVOLVING THE CIRC AND RESP SYSTEMS (3) SOB (shortness of breath) Code(s): R06.02 - SHORTNESS OF BREATH (4) CAD S/P percutaneous coronary angioplasty Code(s): I25.10 - ATHSCL HEART DISEASE OF [place] CORONARY ARTERY W/O ANG PCTRS; Z98.61 - CORONARY ANGIOPLASTY STATUS (5) Diabetes mellitus Assessment/Plan: bgms on po meds Code(s): E11.9 - TYPE 2 DIABETES MELLITUS WITHOUT COMPLICATIONS (6) HLD (hyperlipidemia) Assessment/Plan: on meds Code(s): E78.5 - HYPERLIPIDEMIA, UNSPECIFIED (7) HTN (hypertension) Assessment/Plan: on meds monitor Code(s): I10 - ESSENTIAL (PRIMARY) HYPERTENSION (8) Aliza rash of groin Code(s): B37.89 - OTHER SITES OF CANDIDIASIS
--- NOTE | 2020-01-06 13:16 | PN ---
Progress Note, Physician History of Present Illness: stable no new issues - Current Medication List Current Medications: Active Medications Albuterol/Ipratropium (Duoneb -) 1 amp NEB Q4H PRN PRN Reason: SHORTNESS OF BREATH Amlodipine Besylate (Norvasc -) 10 mg PO DAILY [facility] Last Admin: 01/06/20 09:15 Dose: 10 mg Aspirin (Asa -) 81 mg PO DAILY [facility] Last Admin: 01/06/20 09:15 Dose: 81 mg Atorvastatin Calcium (Lipitor -) 80 mg PO HS [facility] Last Admin: 01/05/20 22:07 Dose: 80 mg Carvedilol (Coreg -) 25 mg PO BID [facility] Last Admin: 01/06/20 09:15 Dose: 25 mg Furosemide (Lasix Injection -) 40 mg IVPUSH BID@0600,1400 [facility] Last Admin: 01/06/20 06:22 Dose: 40 mg Gabapentin (Neurontin -) 100 mg PO TID [facility] Last Admin: 01/06/20 06:22 Dose: 100 mg Glimepiride (Amaryl -) 4 mg PO DAILY@0700 [facility] Last Admin: 01/06/20 06:22 Dose: 4 mg Heparin Sodium (Porcine) (Heparin -) 5,000 unit SQ BID [facility] Last Admin: 01/06/20 09:15 Dose: 5,000 unit Nystatin (Mycostatin Cream -) 1 applic TP Q6HPO [facility] Last Admin: 01/06/20 12:20 Dose: 1 applic Oxycodone HCl (Roxicodone -) 5 mg PO Q6H PRN PRN Reason: PAIN Last Admin: 01/06/20 09:10 Dose: 5 mg - Objective Vital Signs: Vital Signs Temperature 98 F 01/06/20 09:00 Pulse Rate 64 01/06/20 09:00 Respiratory Rate 20 01/06/20 09:00 Blood Pressure 123/69 01/06/20 09:00 O2 Sat by Pulse Oximetry (%) 93 L 01/06/20 12:31 Constitutional: Yes: No Distress, Calm Cardiovascular: Yes: S1, S2 Respiratory: Yes: Regular, CTA Bilaterally, On Nasal O2 Gastrointestinal: Yes: Normal Bowel Sounds, Soft Musculoskeletal: Yes: WNL Extremities: Yes: WNL Neurological: Yes: Alert, Oriented Psychiatric: Yes: Alert, Oriented Labs: CBC, BMP 01/05/20 05:20 02/04/20 05:20 INR, PTT INR 1.28 (0.83-1.09) H 01/04/20 11:04 Assessment/Plan Problem List - Problems (1) Hypoxia Code(s): R09.02 - HYPOXEMIA (2) Pulmonary vascular congestion Code(s): R09.89 - OTH SYMPTOMS AND SIGNS INVOLVING THE CIRC AND RESP SYSTEMS (3) SOB (shortness of breath) Code(s): R06.02 - SHORTNESS OF BREATH (4) Acute on chronic renal failure Code(s): N17.9 - ACUTE KIDNEY FAILURE, UNSPECIFIED; N18.9 - CHRONIC KIDNEY DISEASE, UNSPECIFIED (5) CAD S/P percutaneous coronary angioplasty Code(s): I25.10 - ATHSCL HEART DISEASE OF [place] CORONARY ARTERY W/O ANG PCTRS; Z98.61 - CORONARY ANGIOPLASTY STATUS (6) CKD (chronic kidney disease) Code(s): N18.9 - CHRONIC KIDNEY DISEASE, UNSPECIFIED (7) Diabetes mellitus Code(s): E11.9 - TYPE 2 DIABETES MELLITUS WITHOUT COMPLICATIONS (8) HLD (hyperlipidemia) Code(s): E78.5 - HYPERLIPIDEMIA, UNSPECIFIED (9) HTN (hypertension) Code(s): I10 - ESSENTIAL (PRIMARY) HYPERTENSION (10) Sleep apnea Code(s): G47.30 - SLEEP APNEA, UNSPECIFIED plan will stop abx rest continue current mgmt resp support
[2020-01-06] MEDS: ATORVASTATIN CA 80 MG TABLET (FP) PO SCH (21:43)
[2020-01-07] MEDS: NYSTATIN 100,000 UNIT/GM TOPICAL CREAM 15 GM TUBE TP SCH ×3 (02:10→12:27)
[2020-01-07] MEDS: GABAPENTIN 100 MG CAPSULE PO SCH ×2 (05:59→13:22)
[2020-01-07] MEDS: FUROSEMIDE 40 MG/4 ML INJECTABLE VIAL IVPUSH SCH (06:00)
[2020-01-07] MEDS: GLIMEPIRIDE 4 MG TABLET PO SCH (06:00)
[2020-01-07] MEDS: oxyCODONE HCL 5 MG TABLET PO PRN (06:00)
[2020-01-07] MEDS: amLODIPine BESYLATE 10 MG TABLET (FP) PO SCH (09:06)
[2020-01-07] MEDS: HEPARIN NA (PORCINE) 5,000 UNITS/ML 1ML VIAL SQ SCH (09:06)
[2020-01-07] MEDS: CARVEDILOL 25 MG TABLET (FP) PO SCH (09:06)
[2020-01-07] MEDS: ASPIRIN 81 MG CHEWABLE TABLETS PO SCH (09:06)
--- NOTE | 2020-01-07 10:55 | PN ---
Progress Note (short form) - Note Progress Note: Breathing feels overall better. Less SOB. Did not use NIPPV overnight. Desaturated to 80% post-ambulation. Intake & Output 01/04/20 01/05/20 01/06/20 01/07/20 23:59 23:59 23:59 23:59 Intake Total 920 065 6212 200 Output Total 800 2100 700 Balance 350 -90 -650 -500 Weight 287 lb Last Vital Signs Temp Pulse Resp BP Pulse Ox 98.4 F 60 20 128/64 93 L 01/07/20 09:00 01/07/20 10:31 01/07/20 09:00 01/07/20 09:00 01/07/20 10:31 Active Medications Albuterol/Ipratropium (Duoneb -) 1 amp NEB Q4H PRN PRN Reason: SHORTNESS OF BREATH Amlodipine Besylate (Norvasc -) 10 mg PO DAILY [facility] Last Admin: 01/07/20 09:06 Dose: 10 mg Aspirin (Asa -) 81 mg PO DAILY [facility] Last Admin: 01/07/20 09:06 Dose: 81 mg Atorvastatin Calcium (Lipitor -) 80 mg PO HS [facility] Last Admin: 01/06/20 21:43 Dose: 80 mg Carvedilol (Coreg -) 25 mg PO BID [facility] Last Admin: 01/07/20 09:06 Dose: 25 mg Furosemide (Lasix Injection -) 40 mg IVPUSH BID@0600,1400 [facility] Last Admin: 01/07/20 06:00 Dose: 40 mg Gabapentin (Neurontin -) 100 mg PO TID [facility] Last Admin: 01/07/20 05:59 Dose: 100 mg Glimepiride (Amaryl -) 4 mg PO DAILY@0700 [facility] Last Admin: 01/07/20 06:00 Dose: 4 mg Heparin Sodium (Porcine) (Heparin -) 5,000 unit SQ BID [facility] Last Admin: 01/07/20 09:06 Dose: 5,000 unit Nystatin (Mycostatin Cream -) 1 applic TP Q6HPO [facility] Last Admin: 01/07/20 06:00 Dose: 1 applic Oxycodone HCl (Roxicodone -) 5 mg PO Q6H PRN PRN Reason: PAIN Last Admin: 01/07/20 06:00 Dose: 5 mg Constitutional: Yes: No Distress, Obese Eyes: Yes: Conjunctiva Clear, EOM Intact HENT: Yes: Atraumatic, Normocephalic Neck: Yes: Supple, Trachea Midline Cardiovascular: Yes: Regular Rate and Rhythm Respiratory: Yes: Cough, On Nasal O2, Rhonchi. No: Accessory Muscle Use, Rales , Stridor, Tachypnea, Wheezes ...Inspection: Yes: WNL ...Clubbing: No Gastrointestinal: Yes: Normal Bowel Sounds, Soft, Abdomen, Obese Renal/: Yes: WNL Musculoskeletal: Yes: WNL Extremities: Yes: WNL Edema: Yes Peripheral Pulses WNL: Yes Integumentary: Yes: WNL Neurological: Yes: WNL, Alert, Oriented ...Motor Strength: WNL Psychiatric: Yes: WNL, Alert, Oriented Labs: Laboratory Results - last 24 hr 01/06/20 01/06/20 01/07/20 11:49 16:44 05:54 POC Glucometer 189 226 144 Problem List - Problems (1) Pulmonary vascular congestion Code(s): R09.89 - OTH SYMPTOMS AND SIGNS INVOLVING THE CIRC AND RESP SYSTEMS (2) SOB (shortness of breath) Code(s): R06.02 - SHORTNESS OF BREATH (3) Back pain Code(s): M54.9 - DORSALGIA, UNSPECIFIED Qualifiers: Back pain location: back pain in unspecified location Chronicity: acute Back pain laterality: unspecified Qualified Code(s): M54.9 - Dorsalgia, unspecified (4) CAD S/P percutaneous coronary angioplasty Code(s): I25.10 - ATHSCL HEART DISEASE OF [place] CORONARY ARTERY W/O ANG PCTRS; Z98.61 - CORONARY ANGIOPLASTY STATUS (5) CKD (chronic kidney disease) Code(s): N18.9 - CHRONIC KIDNEY DISEASE, UNSPECIFIED (6) Diabetes mellitus Code(s): E11.9 - TYPE 2 DIABETES MELLITUS WITHOUT COMPLICATIONS (7) HLD (hyperlipidemia) Code(s): E78.5 - HYPERLIPIDEMIA, UNSPECIFIED (8) HTN (hypertension) Code(s): I10 - ESSENTIAL (PRIMARY) HYPERTENSION (9) Sleep apnea Code(s): G47.30 - SLEEP APNEA, UNSPECIFIED (10) Venous stasis Code(s): I87.8 - OTHER SPECIFIED DISORDERS OF VEINS Assessment/Plan Lasix Advised NIPPV support QHS and PRN Daily weights No smoking discussed VTE prophylaxis Will help arrange for a proper CPAP mask after discharge Patient has qualified for home supplemental oxygen. To be arranged by social service. Dr Richards Problem List - Problems (1) Pulmonary vascular congestion Code(s): R09.89 - OTH SYMPTOMS AND SIGNS INVOLVING THE CIRC AND RESP SYSTEMS (2) SOB (shortness of breath) Code(s): R06.02 - SHORTNESS OF BREATH (3) Back pain Code(s): M54.9 - DORSALGIA, UNSPECIFIED Qualifiers: Back pain location: back pain in unspecified location Chronicity: acute Back pain laterality: unspecified Qualified Code(s): M54.9 - Dorsalgia, unspecified (4) CAD S/P percutaneous coronary angioplasty Code(s): I25.10 - ATHSCL HEART DISEASE OF [place] CORONARY ARTERY W/O ANG PCTRS; Z98.61 - CORONARY ANGIOPLASTY STATUS (5) CKD (chronic kidney disease) Code(s): N18.9 - CHRONIC KIDNEY DISEASE, UNSPECIFIED (6) Diabetes mellitus Code(s): E11.9 - TYPE 2 DIABETES MELLITUS WITHOUT COMPLICATIONS (7) HLD (hyperlipidemia) Code(s): E78.5 - HYPERLIPIDEMIA, UNSPECIFIED (8) HTN (hypertension) Code(s): I10 - ESSENTIAL (PRIMARY) HYPERTENSION (9) Sleep apnea Code(s): G47.30 - SLEEP APNEA, UNSPECIFIED (10) Venous stasis Code(s): I87.8 - OTHER SPECIFIED DISORDERS OF VEINS
--- NOTE | 2020-01-07 10:57 | PN ---
Progress Note, Physician History of Present Illness: Dyspnea improving with diuresis, did not use NIPPV overnight. Desaturated to 80 % post-ambulation. - Current Medication List Current Medications: Active Medications Albuterol/Ipratropium (Duoneb -) 1 amp NEB Q4H PRN PRN Reason: SHORTNESS OF BREATH Amlodipine Besylate (Norvasc -) 10 mg PO DAILY [facility] Last Admin: 01/07/20 09:06 Dose: 10 mg Aspirin (Asa -) 81 mg PO DAILY [facility] Last Admin: 01/07/20 09:06 Dose: 81 mg Atorvastatin Calcium (Lipitor -) 80 mg PO HS [facility] Last Admin: 01/06/20 21:43 Dose: 80 mg Carvedilol (Coreg -) 25 mg PO BID [facility] Last Admin: 01/07/20 09:06 Dose: 25 mg Furosemide (Lasix Injection -) 40 mg IVPUSH BID@0600,1400 [facility] Last Admin: 01/07/20 06:00 Dose: 40 mg Gabapentin (Neurontin -) 100 mg PO TID [facility] Last Admin: 01/07/20 05:59 Dose: 100 mg Glimepiride (Amaryl -) 4 mg PO DAILY@0700 [facility] Last Admin: 01/07/20 06:00 Dose: 4 mg Heparin Sodium (Porcine) (Heparin -) 5,000 unit SQ BID [facility] Last Admin: 01/07/20 09:06 Dose: 5,000 unit Nystatin (Mycostatin Cream -) 1 applic TP Q6HPO [facility] Last Admin: 01/07/20 06:00 Dose: 1 applic Oxycodone HCl (Roxicodone -) 5 mg PO Q6H PRN PRN Reason: PAIN Last Admin: 01/07/20 06:00 Dose: 5 mg - Objective Vital Signs: Vital Signs Temperature 98.4 F 01/07/20 09:00 Pulse Rate 60 01/07/20 10:31 Respiratory Rate 20 01/07/20 09:00 Blood Pressure 128/64 01/07/20 09:00 O2 Sat by Pulse Oximetry (%) 93 L 01/07/20 10:31 Constitutional: Yes: No Distress, Calm Neck: Yes: Supple Cardiovascular: Yes: Regular Rate and Rhythm Respiratory: Yes: Regular, Diminished, On Nasal O2 Gastrointestinal: Yes: Normal Bowel Sounds, Soft Edema: Yes Edema: LLE: 1+, RLE: 1+ Integumentary: Yes: Venous Stasis Changes Labs: CBC, BMP 01/05/20 05:20 01/05/20 05:20 INR, PTT INR 1.28 (0.83-1.09) H 01/04/20 11:04 Problem List - Problems (1) Acute on chronic diastolic (congestive) heart failure Code(s): I50.33 - ACUTE ON CHRONIC DIASTOLIC (CONGESTIVE) HEART FAILURE (2) Hypoxia Code(s): R09.02 - HYPOXEMIA (3) Pulmonary vascular congestion Code(s): R09.89 - OTH SYMPTOMS AND SIGNS INVOLVING THE CIRC AND RESP SYSTEMS (4) SOB (shortness of breath) Code(s): R06.02 - SHORTNESS OF BREATH (5) Acute on chronic renal failure Code(s): N17.9 - ACUTE KIDNEY FAILURE, UNSPECIFIED; N18.9 - CHRONIC KIDNEY DISEASE, UNSPECIFIED (6) CAD S/P percutaneous coronary angioplasty Code(s): I25.10 - ATHSCL HEART DISEASE OF [place] CORONARY ARTERY W/O ANG PCTRS; Z98.61 - CORONARY ANGIOPLASTY STATUS (7) HLD (hyperlipidemia) Code(s): E78.5 - HYPERLIPIDEMIA, UNSPECIFIED (8) HTN (hypertension) Code(s): I10 - ESSENTIAL (PRIMARY) HYPERTENSION Assessment/Plan 12/05/2019 Echo: severely dilated LV with borderline reduced LVEF 50%, normal RV size and fxn, mild LAE, tr MR, TR, AR, RVSP 31 mmHg 1. Acute on chronic LV diastolic failure resolving 2. Pulmonary vascular congestion 3. CAD s/p PCI/stent, angina 4. HTN 5. Hypercholesterolemia 6. DM 7. PRITI 8. Acute on CKD PLAN: 1. Resume Furosemide 40 mg po QD and monitor diuretic response, renal function and electrolytes 2. Continue Carvedilol 25 mg BID, Amlodipine 10 mg QD, ASA 81 mg QD, Atorvastatin 80 mg QHS, holding ARB for now pending recovery of renal function to baseline 3. Observe off empiric antibiotic coverage 4. Reviewed echo results with patient 5. CPAP for PRITI, BD, Supplemental home O2 to be arranged by social service Follow up with Dr. Guerra at [facility] upon discharge from hospital
[2020-01-07] MEDS ORDERED: FUROSEMIDE 40 MG TABLET (FP) PO SCH (11:15)
--- NOTE | 2020-01-07 13:49 | PN ---
Progress Note, Physician - Current Medication List Current Medications: Active Medications Albuterol/Ipratropium (Duoneb -) 1 amp NEB Q4H PRN PRN Reason: SHORTNESS OF BREATH Amlodipine Besylate (Norvasc -) 10 mg PO DAILY [facility] Last Admin: 01/07/20 09:06 Dose: 10 mg Aspirin (Asa -) 81 mg PO DAILY [facility] Last Admin: 01/07/20 09:06 Dose: 81 mg Atorvastatin Calcium (Lipitor -) 80 mg PO HS [facility] Last Admin: 01/06/20 21:43 Dose: 80 mg Carvedilol (Coreg -) 25 mg PO BID [facility] Last Admin: 01/07/20 09:06 Dose: 25 mg Furosemide (Lasix -) 40 mg PO DAILY [facility] Last Admin: 01/07/20 12:26 Dose: 40 mg Gabapentin (Neurontin -) 100 mg PO TID [facility] Last Admin: 01/07/20 13:22 Dose: 100 mg Glimepiride (Amaryl -) 4 mg PO DAILY@0700 [facility] Last Admin: 01/07/20 06:00 Dose: 4 mg Heparin Sodium (Porcine) (Heparin -) 5,000 unit SQ BID [facility] Last Admin: 01/07/20 09:06 Dose: 5,000 unit Nystatin (Mycostatin Cream -) 1 applic TP Q6HPO [facility] Last Admin: 01/07/20 12:27 Dose: 1 applic Oxycodone HCl (Roxicodone -) 5 mg PO Q6H PRN PRN Reason: PAIN Last Admin: 01/07/20 06:00 Dose: 5 mg - Objective Vital Signs: Vital Signs Temperature 98.4 F 01/07/20 09:00 Pulse Rate 60 01/07/20 10:31 Respiratory Rate 20 01/07/20 09:00 Blood Pressure 128/64 01/07/20 09:00 O2 Sat by Pulse Oximetry (%) 90 L 01/07/20 12:19 Labs: CBC, BMP 01/05/20 05:20 01/05/20 05:20 INR, PTT INR 1.28 (0.83-1.09) H 01/04/20 11:04
[2020-01-07 15:09] VITALS: BP 118/76; PULSE 62; TEMP 98
--- NOTE | 2020-01-07 17:52 | DS ---
Physical Examination Vital Signs: Vital Signs Temperature 98 F 01/07/20 13:00 Pulse Rate 62 01/07/20 13:00 Respiratory Rate 18 01/07/20 13:00 Blood Pressure 118/76 01/07/20 13:00 O2 Sat by Pulse Oximetry (%) 90 L 01/07/20 12:19 Constitutional: Yes: No Distress HENT: Yes: Atraumatic Neck: Yes: Supple Cardiovascular: Yes: Regular Rate and Rhythm Respiratory: Yes: CTA Bilaterally Gastrointestinal: Yes: Normal Bowel Sounds Extremities: Yes: WNL Edema: Yes Edema: LLE: 1+, RLE: 1+ Neurological: Yes: Alert, Oriented Labs: CBC, BMP 01/05/20 05:20 01/05/20 05:20 Discharge Summary Problems reviewed: Yes Reason For Visit: SOB,HYPOXIA,PULMONARY VENOUS CONGESTION Condition: Fair - Instructions Referrals: Matthew Teran [Primary Care Provider] - Disposition: HOME - Home Medications Comprehensive Discharge Medication List: Ambulatory Orders Atorvastatin Ca [Lipitor] 80 mg PO HS 06/08/18 Carvedilol [Coreg -] 25 mg PO BID 06/08/18 Glimepiride 4 mg PO DAILY 06/08/18 Umeclidinium [place] [Incruse Ellipta] 62.5 mcg IH DAILY 09/01/19 Gabapentin [Neurontin -] 100 mg PO TID #90 capsule 09/02/19 Aspirin [ASA -] 81 mg PO DAILY 01/04/20 Furosemide [Lasix -] 40 mg PO DAILY 01/04/20 Liraglutide [Victoza -] 1.8 mg SQ DAILY@0700 01/04/20 Amlodipine Besylate [Norvasc -] 10 mg PO DAILY #30 tablet 01/06/20 Nystatin Cream [Mycostatin Cream -] 1 applic TP Q6HPO #1 applic 01[facility]06/20 [facility]
== END 2020-01-07 15:34 | disposition home or self-care (01) | DRG 291 ==
LOC: JER 10:03 → JERBED 13:03 → J4W 17:56
PROVIDERS: ADMIT Internal Medicine; ATTEND Internal Medicine
DX: I13.0 Hypertensive heart and chronic kidney disease with heart failure and stage 1 through stage 4 chronic kidney disease, or unspecified chronic kidney disease (principal); I50.33 Acute on chronic diastolic (congestive) heart failure; Z68.42 Body mass index [BMI] 45.0-49.9, adult; Z95.5 Presence of coronary angioplasty implant and graft; G47.33 Obstructive sleep apnea (adult) (pediatric); E66.9 Obesity, unspecified; E78.5 Hyperlipidemia, unspecified; I25.119 Atherosclerotic heart disease of native coronary artery with unspecified angina pectoris; E11.9 Type 2 diabetes mellitus without complications; N18.9 Chronic kidney disease, unspecified
CPT/HCPCS: 36415; 36600; 71045-TC-FY; 80053; 82375; 82550; 82803; 82962; 83050; 83605; 83735; 83880; 84443; 84484; 85025; 85610; 85730; 87040; 87804; 93306-TC; 93970-TC; 94660; 94761; 99285-25; J0131; J1644

== ENCOUNTER 2020-06-26 07:27 | Emergency (ER) | payer BC, OTHER ==
[2020-06-26 07:37] VITALS: TEMP 98.2; BMI 40.7
--- NOTE | 2020-06-26 08:16 | PDOC ---
History of Present Illness - General Chief Complaint: Pain Stated Complaint: LEFT HAND PAIN WORK RELATED Time Seen by Provider: 06/26/20 07:58 - History of Present Illness Initial Comments: 06/26/20 08:16 59M DM, CKD, HTN, HLD,CAD, chronic back pain presenting for evaluation of left elbow and wrist pain x2 days. Pt works as [employer], lifted heavy bag, and pulled a muscle in the left hand. subsequently hit elbow against elevator. Pain gradually worsened over the day and did not resolve yesterday. Denies changes in sensation or strength. NKDA. Past History - Medical History Allergies/Adverse Reactions: Allergies Allergy/AdvReac Type Severity Reaction Status Date / Time No Known Allergies Allergy Verified 06/26/20 07:34 Home Medications: Ambulatory Orders Atorvastatin Ca [Lipitor] 80 mg PO HS 06/08/18 Carvedilol [Coreg -] 25 mg PO BID 06/08/18 Glimepiride 4 mg PO BID 06/08/18 Umeclidinium [place] [Incruse Ellipta] 62.5 mcg IH DAILY 09/01/19 Aspirin [ASA -] 81 mg PO DAILY 01/04/20 Furosemide [Lasix -] 40 mg PO DAILY 01/04/20 Liraglutide [Victoza -] 1.8 mg SQ DAILY@0700 01/04/20 Amlodipine Besylate [Norvasc -] 10 mg PO DAILY #30 tablet 01/06/20 Nystatin Cream [Mycostatin Cream -] 1 applic TP Q6HPO #1 applic 01/06/20 Gabapentin [Neurontin -] 300 mg PO TID 04/27/20 Hydralazine HCl 50 mg PO BID 04/27/20 Metolazone 2.5 mg PO AM 04/27/20 Potassium Chloride [K-Dur -] 40 meq PO BID 1 Days #4 tablet.er 04/27/20 oxyCODONE HCL [Roxicodone -] 5 mg PO TID 04/27/20 Anemia: No Asthma: No Cancer: No Cardiac Disorders: Yes (stent placement) CVA: No COPD: No CHF: No Dementia: No Diabetes: Yes GI Disorders: Yes (ULCERS) Disorders: No HTN: Yes Hypercholesterolemia: Yes Liver Disease: No Seizures: No Thyroid Disease: No - Surgical History Abdominal Surgery: No Appendectomy: No Cardiac Surgery: Yes (stents) Cholecystectomy: No Lung Surgery: No Neurologic Surgery: Yes (lumbar sacral surgery) Orthopedic Surgery: Yes (r wrist arthroscopy, r knee arthroscopy, L 2nd toe revision) - Immunization History Td Vaccination: Yes TDAP Vaccination: Yes Immunization Up to Date: Yes - Psycho-Social/Smoking History Smoking Status: No Smoking History: Never smoked Have you smoked in the past 12 months: No Number of Cigarettes Smoked Daily: 0 If you are a former smoker, when did you quit?: "on and off" for many years - Substance Abuse Hx (Audit-C & DAST Scrn) How often the patient has a drink containing alcohol: Never Score: In Men: 4 or > Positive; In Women: 3 or > Positive: 0 Screen Result (Pos requires Nsg. Audit-10AR): Negative Review of Systems - Review of Systems Comments:: 06/26/20 20:35 CONSTITUTIONAL: Denies F / C HEENT: Denies headache, lightheadedness, dizziness, changes in vision / hearing, diplopia, blurry vision, sore throat, rhinorrhea RESP: Denies SOB, cough CARD: Denies chest pain GI: Denies N / V / D, abdominal pain : Denies dysuria NEURO: Denies numbness, tingling, weakness MSK: + left wrist and elbow pain (CC); chronic back pain SKIN: Denies rashes *Physical Exam - Vital Signs Last Vital Signs Temp Pulse Resp BP Pulse Ox 98.2 F 61 18 119/66 97 06/26/20 07:31 06/26/20 07:31 06/26/20 07:31 06/26/20 07:31 06/26/20 07:31 - Physical Exam 06/26/20 20:35 GEN: NAD, AAOx3. HEENT: NC/AT, EOMI, PERRL. No facial asymmetry. Moist mucous membranes. Normal voice. Supple neck w/ FROM. CV: S1/S2, RRR, no m/r/g LUNG: CTAB, no wheezes, crackles, rales, rhonchi. GI: Soft, ndnt, +BS, no guarding, no rebound. MSK: +TTP medial and lateral aspects of left olecranon soft tissue w/o gross soft tissue swelling, erythema, or fluctuance. +TTP of the left ulnar styloid process. No snuffbox TTP. No skin wounds. 2+ distal pulses. SKIN: Warm, dry, no rashes appreciated. PSYCH: Normal mood and affect. NEURO: Moving all extremities well. symmetric sensation. strength testing limited 2/2 pain but FROM and able to move all fingers. Ambulatory. ED Treatment Course - RADIOLOGY Radiology Studies Ordered: Category Date Time Status ELBOW-LEFT [RAD] Stat Radiology 06/26/20 08:15 Ordered FOREARM- LEFT [RAD] Stat Radiology 06/26/20 08:15 Ordered WRIST W/HAND-LEFT* [RAD] Stat Radiology 06/26/20 08:15 Ordered Medical Decision Making - Medical Decision Making 06/26/20 20:35 59M working as [employer] c/o left wrist and elbow pain s/p lifting heavy bag and hitting wall. neuro intact. TTP of the left olecranon and ulnar styloid. Will r/o fracture but most likely muscular / soft tissue injury - XR - pain control - reassess - plan to dispo home w/ PCP and pain management f/u 06/26/20 09:58 XR report w/o acute pathology pain has decreased plan dw pt, questions/concerns addressed dc as above Discharge - Discharge Information Problems reviewed: Yes Clinical Impression/Diagnosis: Muscle strain, Sprain and strain Condition: Stable Disposition: HOME - Admission No - Follow up/Referral Referrals: Matthew Teran [Primary Care Provider] - - Patient Discharge Instructions Additional Instructions: Your imaging was reassuring. Continue your home medications as prescribed. Take tylenol for pain as directed by the label. Additionally, use the RICE method to help alleviate the pain: Rest Ice the affected area, 20 minutes on and 20 minutes off. Compress (warm/cold compresses) Elevate the affected area Follow up with your primary care doctor regarding this visit in the next 5-10 days. Follow up with your pain management doctor in the next 5-10 days. Immediately return to the nearest Emergency Department if you experience worsening symptoms or if you develop new or concerning symptoms. - Post Discharge Activity
[2020-06-26] MEDS ORDERED: ACETAMINOPHEN 500 MG TABLET (FP) PO ONE (08:24)
[2020-06-26] MEDS ORDERED: LIDOCAINE 5% TOPICAL PATCH TP ONE (08:24)
--- NOTE | 2020-06-26 08:36 | PDOC ---
Attending Attestation - Resident Resident Name: RamirezCody - ED Attending Attestation I have performed the following: I have examined & evaluated the patient, The case was reviewed & discussed with the resident, I agree w/resident's findings & plan, Exceptions are as noted - HPI HPI: 06/26/20 08:31 59YOM with h/o chronic back pain (on oxycodone at home and follows with pain management), CAD, HTN, HLD, DM, and CKD who p/w left elbow and wrist pain persisting since he did heavy lifting of a trash bag and then slammed his LUE against an elevator 2 days ago. He notes having taken his normal oxycodone from his own prescription at home for the pain, with incomplete relief. The pain has been worsening since the incident and he has become concerned he broke a bone in his forearm or hand, so he came in requesting X-ray. He denies feeling/hearing any pops/cracks at the time of the incident, denies any new n/t/w focally. No skin changes that he is noting. - Physicial Exam PE: 06/26/20 08:38 GENERAL: well-appearing adult male, A/Ox4, no distress, answers questions appropriately HEENT: PERRLA, EOMI, moist mucous membranes NECK/BACK: no midline ttp, no spinal step-off or deformity, no hematoma, full ROM, neck supple CARDIOVASCULAR: regular rate/rhythm, no MGR, strong peripheral pulses, capillary refill <2 seconds, extremities wwp, no edema LUNGS/RESPIRATORY: no respiratory distress, CTAB GI/ABDOMEN: symmetric [id number], normoactive BS, soft, no ttp, no midline pulsatile masses : no CVA tenderness MSK/EXTREMITIES: full ROM BUE proximally and distally, nonpainful ROM, but mild ttp medial and lateral olecranon and also overlying the ulnar styloid on the LUE, no left snuffbox tenderness, no skin changes/ecchymoses/abrasions, no acute deformity, distal NV intact with normal motor and sensory function radial/median/ulnar distributions, radial pulses 2+ and symmetric bilaterally SKIN: warm and dry, no pallor, no jaundice, no rash, no pathologic-appearing bruising, no skin breakdown, no cuts, no lesions NEUROLOGICAL: GCS 15, CN II-XII grossly intact, 5/5 strength proximally and distally, no facial droop - Medical Decision Making 06/26/20 08:41 59YOM presents with minor LUE trauma and stated pulled muscle, persistent pain despite analgesics at home, requesting XR. Initial Vital Signs Temp Pulse Resp BP Pulse Ox 98.2 F 61 18 119/66 97 06/26/20 07:31 06/26/20 07:31 06/26/20 07:31 06/26/20 07:31 06/26/20 07:31 Most likely simple contusions with possible sprain/strain but there is possibility of minor fracture. Unlikely dislocation or any NV injury. Will get XRs and ensure pain is controlled. 06/26/20 09:40 X-rays elbow and wrist/hand are negative. Patient is appropriate for discharge home with close PCP followup. Specific return precautions are discussed, the patient will use RICE therapy and home meds, instructed to use Tylenol and not Ibuprofen/NSAID if using OTC meds. Discharge per Dr. Ramirez. Discharge - Discharge Information Problems reviewed: Yes Clinical Impression/Diagnosis: Sprain and strain Condition: Stable Disposition: HOME - Admission No - Follow up/Referral Referrals: Matthew Teran [Primary Care Provider] - - Patient Discharge Instructions Additional Instructions: Continue your home medications as prescribed. Take tylenol for pain as directed by the label. Additionally, use the RICE method to help alleviate the pain: Rest Ice the affected area, 20 minutes on and 20 minutes off. Compress (warm/cold compresses) Elevate the affected area Follow up with your primary care doctor regarding this visit in the next 5-10 days. Follow up with your pain management doctor in the next 5-10 days. Immediately return to the nearest Emergency Department if you experience worsening symptoms or if you develop new or concerning symptoms. - Post Discharge Activity
[2020-06-26] MEDS ORDERED: LIDOCAINE 5% TOPICAL PATCH ONE (08:58)
[2020-06-26] MEDS ORDERED: ACETAMINOPHEN 325 MG TABLET (FP) ONE (08:58)
[2020-06-26 10:23] VITALS: BP 120/78; PULSE 87
[2020-06-26] MEDS ORDERED: LIDOCAINE PATCH REMOVAL MC SCH (22:00)
== END 2020-06-26 10:23 | disposition home or self-care (01) ==
LOC: JER 07:27
DX: S53.492A Other sprain of left elbow, initial encounter (principal); S53.402A Unspecified sprain of left elbow, initial encounter
CPT/HCPCS: 73070-TC-LT-FY; 73090-TC-LT-FY; 73110-TC-LT-FY; 73130-TC-LT-FY; 99284-25

== ENCOUNTER 2021-06-23 13:22 | Emergency (ER) | payer BC, OTHER ==
[2021-06-23 13:29] VITALS: BP 118/73; PULSE 67; TEMP 97.9; BMI 38.8
[2021-06-23] MEDS ORDERED: POTASSIUM CHLORIDE ORAL LIQUID 20 MEQ/15 ML PO ONE ×2 (14:15→19:08)
[2021-06-23] MEDS ORDERED: POTASSIUM CHLORIDE ORAL LIQUID 20 MEQ/15 ML ONE ×2 (15:19→19:21)
[2021-06-23 15:37] LABS: BASO % 0.8 % (0-2.0); EOS % 2.9 % (0-4.5); HEMATOCRIT 47.7 % (35.4-49); HEMOGLOBIN 15.7 GM/dL (11.7-16.9); MEAN CELL VOLUME 81.8 fl (80-96); MONO % 11.5 % (3.8-10.2); NEUT % 72.8 % (42.8-82.8); PLATELET COUNT 146 10^3/uL (134-434); RBC 5.84 M/mm3 (4.00-5.60); RDW 16.1 % (11.9-15.9); WHITE BLOOD COUNT 9.9 K/mm3 (4.0-10.0)
[2021-06-23 16:01] LABS: ALBUMIN 3.7 g/dl (3.4-5.0); CALCIUM 8.8 mg/dL (8.5-10.1)
[2021-06-23 16:03] LABS: BLOOD UREA NITROGEN 66.1 mg/dL (7-18)
[2021-06-23 16:05] LABS: CREATININE 3.4 mg/dL (0.55-1.3)
[2021-06-23 16:06] LABS: BILIRUBIN,TOTAL 0.6 mg/dL (0.2-1)
[2021-06-23 16:42] LABS: ANISOCYTOSIS 1+; MACROCYTOSIS 0; PLATELET ESTIMATE NORMAL
[2021-06-23] MEDS ORDERED: SODIUM CHLORIDE 0.9% 500 ML INFUS.BAG IV ONE (17:25)
[2021-06-23 19:08] LABS: BLOOD UREA NITROGEN 64.8 mg/dL (7-18)
[2021-06-23 19:11] LABS: CREATININE 3.4 mg/dL (0.55-1.3)
== END 2021-06-23 19:33 | disposition home or self-care (01) ==
LOC: JER 13:22
DX: E87.6 Hypokalemia (principal)
CPT/HCPCS: 80048; 80053; 85025; 93005; 93010; 99284-25; C9803; U0003; U0005